=== PATIENT | male | born 1980 | race Caucasian/White ===

== ENCOUNTER 2020-08-17 12:49 | Inpatient (IN) | payer MEDICAID ==
[~2020-08-17] VITALS: Ht 167.6 cm; Wt 97.7 kg
[2020-08-17] MEDS ORDERED: FLUTICASONE PRO16 GM NASAL (13:06)
[2020-08-17] MEDS ORDERED: OMEPRAZOLE40 MG PO (13:07)
[2020-08-17] MEDS ORDERED: ALDACTONE25 MG PO (13:07)
[2020-08-17] MEDS ORDERED: ZYRTEC10 MG PO (13:07)
[2020-08-17] MEDS ORDERED: FIBER-LAX625 MG PO (13:08)
[2020-08-17] MEDS ORDERED: CELEXA40 MG PO (13:08)
[2020-08-17] MEDS ORDERED: DULCOLAX STOOL100 MG PO (13:08)
[2020-08-17 14:06] LABS: BASOPHILS 0.3 % (0-2); CALC OSMOLALITY 275 mosm/kg (275-300); CALCIUM 9.3 mg/dL (8.5-10.1); CARBON DIOXIDE 27.4 mmol/L (21.0-32.0); CHLORIDE - SERUM 99 mmol/L (98-107); CREATININE - SERUM 0.8 mg/dL (0.6-1.3); EOSINOPHILS 0.5 % (0-7); GLUCOSE 104 mg/dL (74-106); HEMATOCRIT 33.2 % (42.0-54.0); HEMOGLOBIN 10.2 g/dL (13.5-17.5); IMMATURE GRANULOCYTES 0.3 % (0-5); LYMPHOCYTE ABS# 1.28 10x3/uL (1.32-3.57); LYMPHOCYTES 12.1 % (15-50); MCH 23.8 pg (26.0-34.0); MCHC 30.7 g/dL (31.0-37.0); MCV 77.4 fL (80.0-100.0); MONOCYTES 12.8 % (2-11); NEUTROPHIL ABS# 7.82 10x3/uL (1.78-5.38); PLATELET COUNT 325 10x3/uL (130-400); POTASSIUM - SERUM 3.6 mmol/L (3.5-5.1); RBC 4.29 10x6/uL (4.20-6.10); SODIUM 139 mmol/L (136-145); UREA NITROGEN 6 mg/dL (7-18); WBC 10.6 10x3/uL (4.8-10.8); eGFR NON AFRICAN AMERICAN > 90 mL/min (90-120)
[2020-08-17 14:12] LABS: ALBUMIN 2.7 g/dL (3.4-5.0); ALKALINE PHOSPHATASE 94 U/L (30-120); ALT (SGPT) 23 U/L (10-68); AMYLASE - SERUM 15 U/L (25-115); BILIRUBIN - TOTAL 0.45 mg/dL (0.2-1.3); LIPASE 63 U/L (73-393); PROTEIN - SERUM 7.9 g/dL (6.4-8.2)
[2020-08-17 15:49] LABS: BILIRUBIN NEGATIVE (NEGATIVE); KETONE NEGATIVE (NEGATIVE); NITRITE NEGATIVE (NEGATIVE); UROBILINOGEN NORMAL mg/dL (< 2)
[2020-08-17 19:19] VITALS: BP 110/62
[2020-08-17 20:30] VITALS: BP 125/72
[2020-08-17 21:30] VITALS: BP 126/76
[2020-08-17 22:11] LABS: APTT 40.8 SECONDS (22.8-39.4); INR 1.37 (0.85-1.17); PROTIME 15.6 SECONDS (11.6-15.0)
[2020-08-17 22:14] LABS: % SATURATION 7 % (15-55); IRON 14 ug/dl (35-150); TOTAL IRON BIND CAPACITY 178 ug/dl (260-445); UNSAT IRON BIND CAPACITY 164 ug/dl (150-375)
[2020-08-17 22:30] VITALS: BP 123/66
[2020-08-17 22:49] LABS: CKMB 2.2 U/L (0.0-3.6); CREATINE KINASE 52 UL (21-232); MAGNESIUM - SERUM 2.3 mg/dL (1.8-2.4); PRO BNP 448 pg/mL (0-125); TROPONIN-I < 0.017 ng/mL (0.000-0.060)
[2020-08-17 22:52] LABS: FERRITIN 1318 ng/mL (3-244)
[2020-08-17 23:20] VITALS: BP 124/65; BMI 32.5
[2020-08-18] VITALS (8 sets, daily range): BP systolic 91–122; BP diastolic 52–85; Ht 167.6 cm; Wt 97.7 kg
--- NOTE | 2020-08-18 00:08 | NUR ---
RECEIVED PT FROM ER, A&O X4. PIV TO LEFT AC, PATENT AND S/L, NO REDNESS OR SWELLING. ROLAND AT BEDSIDE. EDUCATED PT ON CL AND NEEDS, VERBALIZED UNDERSTANDING. BED LOW, CL IN REACH.
--- NOTE | 2020-08-18 02:01 | NUR ---
PT LAYING IN BED, EYES CLOSED AND EVEN RESPIRATIONS. BED LOW, CL IN REACH. WILL CONTINUE TO MONITOR.
--- NOTE | 2020-08-18 03:22 | NUR ---
LOGGING RAFTER LABORER ASSISTED PT WITH HCG BATH, PREP FOR PROCEDURE IN AM. PT TOLERATED WELL. BED LOW, CL IN REACH.
[2020-08-18 07:00] LABS: APTT 40.4 SECONDS (22.8-39.4); INR 1.5 (0.85-1.17); PROTIME 16.8 SECONDS (11.6-15.0)
[2020-08-18 07:05] LABS: BASOPHILS 0.1 % (0-2); EOSINOPHILS 0.3 % (0-7); HEMATOCRIT 29.8 % (42.0-54.0); HEMOGLOBIN 9.2 g/dL (13.5-17.5); IMMATURE GRANULOCYTES 0.4 % (0-5); LYMPHOCYTE ABS# 1.17 10x3/uL (1.32-3.57); LYMPHOCYTES 11.7 % (15-50); MCH 23.5 pg (26.0-34.0); MCHC 30.9 g/dL (31.0-37.0); MCV 76.2 fL (80.0-100.0); MEAN PLATELET VOLUME 9.1 fL (7.4-10.4); MONOCYTES 11.7 % (2-11); NEUTROPHILS 75.8 % (40-80); PLATELET COUNT 331 10x3/uL (130-400); RBC 3.91 10x6/uL (4.20-6.10); RDW 15.8 % (11.5-14.5)
[2020-08-18 07:08] LABS: ALBUMIN 2.5 g/dL (3.4-5.0); ALKALINE PHOSPHATASE 84 U/L (30-120); ALT (SGPT) 20 U/L (10-68); BILIRUBIN - TOTAL 0.42 mg/dL (0.2-1.3); CALC OSMOLALITY 267 mosm/kg (275-300); CALCIUM 8.7 mg/dL (8.5-10.1); CARBON DIOXIDE 24.3 mmol/L (21.0-32.0); CHLORIDE - SERUM 101 mmol/L (98-107); CREATININE - SERUM 0.8 mg/dL (0.6-1.3); GLUCOSE 114 mg/dL (74-106); MAGNESIUM - SERUM 2.1 mg/dL (1.8-2.4); POTASSIUM - SERUM 3.6 mmol/L (3.5-5.1); PROTEIN - SERUM 6.7 g/dL (6.4-8.2); SODIUM 135 mmol/L (136-145); UREA NITROGEN 4 mg/dL (7-18); eGFR NON AFRICAN AMERICAN > 90 mL/min (90-120)
--- NOTE | 2020-08-18 07:16 | NUR ---
IN BED, GUARD AT BEDSIDE. NPO SINCE MIDNIGHT. BED LOW POSITION, CALL LIGHT IN REACH. WILL CONTINUE TO MONITOR.
[2020-08-18 09:22] LABS: NORMAL PLASMA / APTT 35.6 SECONDS (22.8-39.4); NORMAL PLASMA / PROTHROMBIN 13.2 SECONDS (11.6-15.0)
--- NOTE | 2020-08-18 17:01 | NUR ---
IN BED. GUARD AT BEDSIDE. DENIES NEEDS AT THIS TIME. BED LOW POSITION. CALL LIGHT IN REACH. WILL CONTINUE TO MONITOR.
--- NOTE | 2020-08-18 19:30 | NUR ---
RECEIVED BEDSIDE REPORT. PT LAYING IN BED A&O X4. PIV TO LEFT AC PATENT AND S/L, NO REDNESS OR SWELLING, TEGADERM ADHERED TO SKIN, SWAB CAPS IN USE. DRSG TO RIGHT SIDE OF CHEST. PT ABLE TO AMBULATE AD EYAL. TELEMETRY IN PLACE, 88 SR. ROLAND AT BEDSIDE. EDUCATED PT ON CL AND NEEDS, VERBALIZED UNDERSTANDING. BED LOW, CL IN REACH.
--- NOTE | 2020-08-19 03:34 | NUR ---
CHANGED IV TUBING, REPLACED ALL LINES, SWAB CAPS IN USE. BED LOW, CL IN REACH.
[2020-08-19 04:00] VITALS: BP 116/75
[2020-08-19 06:37] LABS: BASOPHILS 0.2 % (0-2); EOSINOPHILS 0.6 % (0-7); HEMATOCRIT 31.6 % (42.0-54.0); HEMOGLOBIN 9.6 g/dL (13.5-17.5); IMMATURE GRANULOCYTES 0.3 % (0-5); LYMPHOCYTE ABS# 1.86 10x3/uL (1.32-3.57); LYMPHOCYTES 15.7 % (15-50); MCH 23.4 pg (26.0-34.0); MCHC 30.4 g/dL (31.0-37.0); MCV 76.9 fL (80.0-100.0); MEAN PLATELET VOLUME 9.2 fL (7.4-10.4); MONOCYTES 15.6 % (2-11); NEUTROPHIL ABS# 8.03 10x3/uL (1.78-5.38); NEUTROPHILS 67.6 % (40-80); PLATELET COUNT 353 10x3/uL (130-400); RBC 4.11 10x6/uL (4.20-6.10); RDW 16.1 % (11.5-14.5); WBC 11.9 10x3/uL (4.8-10.8)
[2020-08-19 06:49] LABS: ALBUMIN 2.5 g/dL (3.4-5.0); ALKALINE PHOSPHATASE 92 U/L (30-120); ALT (SGPT) 24 U/L (10-68); BILIRUBIN - TOTAL 0.36 mg/dL (0.2-1.3); CALC OSMOLALITY 267 mosm/kg (275-300); CALCIUM 8.9 mg/dL (8.5-10.1); CARBON DIOXIDE 26.2 mmol/L (21.0-32.0); CHLORIDE - SERUM 99 mmol/L (98-107); CREATININE - SERUM 0.7 mg/dL (0.6-1.3); GLUCOSE 109 mg/dL (74-106); MAGNESIUM - SERUM 2.1 mg/dL (1.8-2.4); POTASSIUM - SERUM 3.7 mmol/L (3.5-5.1); PROTEIN - SERUM 6.8 g/dL (6.4-8.2); SODIUM 135 mmol/L (136-145); UREA NITROGEN 5 mg/dL (7-18); eGFR NON AFRICAN AMERICAN > 90 mL/min (90-120)
[2020-08-19 06:50] LABS: LDH 1073 U/L (85-227)
[2020-08-19 07:16] LABS: HCG-QUANTITATIVE(TUMOR MARKER) <1 mIU/mL (0-3)
[2020-08-19 09:16] VITALS: BP 107/67
[2020-08-19 10:12] LABS: HEPATITIS C ANTIBODY <0.1 S/CO RAT (0.0-0.9)
[2020-08-19 13:07] VITALS: BP 99/58
[2020-08-19 17:51] VITALS: BP 112/70
[2020-08-19 20:00] VITALS: BP 104/62
[2020-08-20] VITALS: BP 108/70
[2020-08-20 04:00] VITALS: BP 113/66
--- NOTE | 2020-08-20 05:22 | NUR ---
AWAKE MOST OF THE NIGHT WATCHING TV. NO COMPLAINTS OF PAIN OR DISCOMFORT VOICED. CALL LIGHT IN EASY REACH. SAFETY ROUNDS MADE.
[2020-08-20 06:11] LABS: BASOPHILS 0.2 % (0-2); EOSINOPHILS 0.6 % (0-7); HEMATOCRIT 31.5 % (42.0-54.0); HEMOGLOBIN 9.3 g/dL (13.5-17.5); IMMATURE GRANULOCYTES 0.6 % (0-5); LYMPHOCYTE ABS# 1.91 10x3/uL (1.32-3.57); LYMPHOCYTES 15.8 % (15-50); MCH 22.9 pg (26.0-34.0); MCHC 29.5 g/dL (31.0-37.0); MCV 77.6 fL (80.0-100.0); MONOCYTES 13.5 % (2-11); NEUTROPHIL ABS# 8.38 10x3/uL (1.78-5.38); NEUTROPHILS 69.3 % (40-80); PLATELET COUNT 328 10x3/uL (130-400); RBC 4.06 10x6/uL (4.20-6.10); RDW 16.1 % (11.5-14.5); WBC 12.1 10x3/uL (4.8-10.8)
[2020-08-20 06:31] LABS: ALBUMIN 2.3 g/dL (3.4-5.0); ALKALINE PHOSPHATASE 79 U/L (30-120); ALT (SGPT) 21 U/L (10-68); BILIRUBIN - TOTAL 0.35 mg/dL (0.2-1.3); CALC OSMOLALITY 269 mosm/kg (275-300); CALCIUM 8.9 mg/dL (8.5-10.1); CARBON DIOXIDE 26.6 mmol/L (21.0-32.0); CHLORIDE - SERUM 100 mmol/L (98-107); CREATININE - SERUM 0.8 mg/dL (0.6-1.3); GLUCOSE 118 mg/dL (74-106); MAGNESIUM - SERUM 2.1 mg/dL (1.8-2.4); POTASSIUM - SERUM 3.3 mmol/L (3.5-5.1); PROTEIN - SERUM 7.1 g/dL (6.4-8.2); SODIUM 136 mmol/L (136-145); UREA NITROGEN 5 mg/dL (7-18); eGFR NON AFRICAN AMERICAN > 90 mL/min (90-120)
[2020-08-20 07:15] LABS: HCG-QUANTITATIVE(TUMOR MARKER) <1 mIU/mL (0-3)
[2020-08-20 09:11] VITALS: BP 118/74
--- NOTE | 2020-08-20 10:19 | EC ---
PATIENT:JULIANN ANNE DATE OF SERVICE: 08/17/20 SEX: M MEDICAL RECORD: [id number] DATE OF : [birth year] LOCATION:[facility] AGE OF PATIENT: 39 ADMISSION DATE: 08/17/20 REFERRING PHYSICIAN: INTERPRETING PHYSICIAN: CHANCE CARR MD ECHOCARDIOGRAM REPORT ECHO CHARGES 4 ECHO COMPLETE Date: 08/18/20 CLINICAL DIAGNOSIS: DYSPNEA, PERICARDIAL EFFUSION ECHOCARDIOGRAPHIC MEASUREMENTS (adult normal given) AC root (d.<3.7cm) 2.6 cm LV Septum d (<1.2 cm> 0.9 cm Valve Excursion 1.6 cm LV Septum (systole) 1.2 cm Left Atria (s.<4.0cm> 2.8 cm LVPW d(<1.2cm) 1.3 cm RV (d.<2.3cm) 3.3 cm LVPW (sytole) 1.4 cm LV diastole(<5.6CM) 5.0 cm MV E-F(>70mm/sec) cm LV systole 4.1 cm LVOT Diameter 2.1 cm MV exc.(>10mm) 0.8 cm Est.ejection fraction (50-75%) % DOPPLER: LVIT cm/sec A 61 cm/sec E 97 cm/sec LA cm/sec RVSP 19 mmHg LVOT 112 cm/sec AOP1/2T m/s Asc. Ao 126 cm/sec RVOT 115 cm/sec RA cm/sec PA 152 cm/sec AV Gradient Peak 6.3 mmHg AV Mean 4.1 mmHg AV Area 3.0 cm MV Gradient Peak 2.9 mmHg MV Mean 1.4 mmHg MV Area cm COMMENTS: Printing Services Coordinator: Zahida SCHMIDT Lead Data Entry Operator: 3 Dr. Still TAPE# Pericardial Effusion Y DATE OF SERVICE: Adequate 2D, color flow imaging, spectral Doppler, and M-Mode. No LVH. LV internal dimensions are normal. Wall motion normal. EF greater than or equal to 55%. Aortic valve is tricuspid. No evidence of stenosis by Doppler interrogation. Left atrium is normal. Mitral valve shows no prolapse. Trivial MR. Right-sided chambers are grossly normal. Trace TR. Incidental note was made of pericardial effusion, mild to moderate of no hemodynamic significance. ECHOCARDIOGRAM REPORT [id number] JULIANN ANNE TRANSINT:[id number] Voice Confirmation ID: [id number] DOCUMENT ID: [id number] CHANCE CARR MD at 1019 CC: [id number] DICTATION DATE: 08/19/20810 POLITICAL SCIENCE FACULTY MEMBER: 08/19/20 0903 ADM IN [place] [id number] [place] [id number]
[2020-08-20 13:38] VITALS: BP 105/68
[2020-08-20 18:21] VITALS: BP 105/62
[2020-08-20 20:00] VITALS: BP 110/67
[2020-08-21] VITALS: BP 105/63
[2020-08-21 04:00] VITALS: BP 102/70
--- NOTE | 2020-08-21 04:37 | NUR ---
AWAKE MOST OF THIS SHIFT WATCHING TV. ZOFRAN GIVEN X 1 WITH GOOD RESULTS FOR COMPLAINT OF NAUSEA. NO COMPLAINTS OF PAIN VOICED. CALL LIGHT IN EASY REACH. SAFETY ROUNDS MADE.
[2020-08-21 06:59] LABS: ALBUMIN 2.4 g/dL (3.4-5.0); ALKALINE PHOSPHATASE 89 U/L (30-120); BILIRUBIN - TOTAL 0.33 mg/dL (0.2-1.3); CALC OSMOLALITY 263 mosm/kg (275-300); CALCIUM 9.3 mg/dL (8.5-10.1); CARBON DIOXIDE 27.1 mmol/L (21.0-32.0); CHLORIDE - SERUM 98 mmol/L (98-107); CREATININE - SERUM 0.8 mg/dL (0.6-1.3); GLUCOSE 121 mg/dL (74-106); MAGNESIUM - SERUM 2.4 mg/dL (1.8-2.4); PROTEIN - SERUM 7.7 g/dL (6.4-8.2); SODIUM 133 mmol/L (136-145); UREA NITROGEN 5 mg/dL (7-18); eGFR NON AFRICAN AMERICAN > 90 mL/min (90-120)
[2020-08-21 07:00] LABS: ALT (SGPT) 28 U/L (10-68); POTASSIUM - SERUM 4.3 mmol/L (3.5-5.1)
[2020-08-21 07:01] LABS: BASOPHILS 0.2 % (0-2); EOSINOPHILS 1.1 % (0-7); HEMOGLOBIN 9.7 g/dL (13.5-17.5); IMMATURE GRANULOCYTES 0.6 % (0-5); LYMPHOCYTES 13.8 % (15-50); MCH 23.7 pg (26.0-34.0); MCHC 30.3 g/dL (31.0-37.0); MEAN PLATELET VOLUME 9.1 fL (7.4-10.4); MONOCYTES 12.2 % (2-11); NEUTROPHIL ABS# 10.41 10x3/uL (1.78-5.38); NEUTROPHILS 72.1 % (40-80); PLATELET COUNT 344 10x3/uL (130-400); RDW 16.4 % (11.5-14.5); WBC 14.5 10x3/uL (4.8-10.8)
[2020-08-21 07:15] LABS: BETA-2 MICROGLOBULIN 1.5 mg/L (0.6-2.4)
[2020-08-21 08:36] VITALS: BP 106/69
[2020-08-21 12:09] VITALS: BP 109/63
--- NOTE | 2020-08-21 13:22 | NUR ---
Nutrition follow-up: Pt receiving a regular diet; po intake 25-50% of meals Pt has been NPO for several meals due to continued procedures Labs reviewed Wt: 200# Will continue to provide food choices and honor food preferences. Will offer and encourage nutritional supplement RDN follow-up: 08/25/20
--- NOTE | 2020-08-21 14:41 | MORECARE ---
CASE MANAGEMENT DISCHARGE SUMMARY PATIENT: JULIANN ANNE UNIT: [id number] ADM DATE: 08/17/20 AGE: 39 : [birth year] SEX: M ROOM/BED: D.2213 AUTHOR: STEPHANIE MANTILLA PHYSICIAN: REFERRING PHYSICIAN: WHIT ALCANTARA MD DATE OF SERVICE: 08/21/20 Discharge Plan Patient Name: JULIANN ANNE Facility: [facility]:[place] : 1980 Planned Disposition: Court\Law Enforcement Anticipated Discharge Date: Discharge Date: Expected LOS: Initial Reviewer: [email or web address] Initial Review Date: 08/17/2020 Generated: 08/21/20 3:40 pm Comments DCP- Discharge Planning Updated by [email or web address]: Angela Haley on 08/21/20 1:[address] Patient Name: JULIANN ANNE Admission Status: ER Accout number: [id number] Admission Date: 08-17-2020 : 1980 Admission Diagnosis:PNEUMONIA, UNSPECIFIED ORGANISM Attending: WHIT ALCANTARA Current LOS: 4 Anticipated DC Date: Planned Disposition: Court\Law Enforcement Primary Insurance: MEDICAID RESIDENTIAL PENDING Discharge Planning Comments: THIS IS AN [facility] PRISONER GUARDS ARE AT BEDSIDE AND THEY WILL SET UP THE TRANSPORTATION WHEN HE IS READY TO DC BACK TO [facility] CM TO FOLLOW NEEDED Licensed Physical Therapist Assistant: Angela Haley Patient Name: JULIANN ANNE Page [phone] at 1441 All edits/amendments must be made on the electronic document DICTATION DATE: 08/21/20 1441 SLAG DUMPER: ОЛЬГА 08/21/20 1441 RPT#: [id number] DC DATE: STATUS: ADM IN [facility] [address] [place] [address] END OF REPORT
[2020-08-21 17:19] VITALS: BP 96/62
--- NOTE | 2020-08-21 19:10 | NUR ---
REPORT RECEIVED, PT CARE ASSUMED. PT SITTING UP IN BED, AAOX4, WATCHING TV. DENIES ANY NEEDS AT THIS TIME. BED IN LOWEST, SRX2, CALL LIGHT WITHIN REACH. PT SHACKLED TO BED, GUARD AT BEDSIDE. CPOC.
[2020-08-21 20:02] VITALS: BP 122/71
--- NOTE | 2020-08-21 21:30 | NUR ---
PT C/O PAIN AND SWELLING AT IV SITE TO LEFT AC, REDNESS NOTED. PIV REMOVED, TIP INTACT. NEW PIV INITIATED TO RIGHT FOREARM, 22 GAUGE, X1 ATTEMPT, PT TOLERATED WELL, INFUSING NS @ KVO WITHOUT ISSUE.
[2020-08-22 01:01] VITALS: BP 108/67
[2020-08-22 05:55] VITALS: BP 123/63
[2020-08-22 06:15] LABS: BASOPHILS 0.2 % (0-2); EOSINOPHILS 0.9 % (0-7); HEMATOCRIT 31.6 % (42.0-54.0); HEMOGLOBIN 9.5 g/dL (13.5-17.5); IMMATURE GRANULOCYTES 0.6 % (0-5); LYMPHOCYTE ABS# 1.57 10x3/uL (1.32-3.57); LYMPHOCYTES 12.2 % (15-50); MCH 23.4 pg (26.0-34.0); MCHC 30.1 g/dL (31.0-37.0); MCV 77.8 fL (80.0-100.0); MEAN PLATELET VOLUME 8.9 fL (7.4-10.4); MONOCYTES 10.9 % (2-11); NEUTROPHIL ABS# 9.67 10x3/uL (1.78-5.38); NEUTROPHILS 75.2 % (40-80); PLATELET COUNT 350 10x3/uL (130-400); RBC 4.06 10x6/uL (4.20-6.10); RDW 16.5 % (11.5-14.5); WBC 12.9 10x3/uL (4.8-10.8)
[2020-08-22 06:34] LABS: ALBUMIN 2.4 g/dL (3.4-5.0); ALKALINE PHOSPHATASE 93 U/L (30-120); ALT (SGPT) 32 U/L (10-68); BILIRUBIN - TOTAL 0.35 mg/dL (0.2-1.3); CALC OSMOLALITY 269 mosm/kg (275-300); CALCIUM 8.9 mg/dL (8.5-10.1); CARBON DIOXIDE 26.1 mmol/L (21.0-32.0); CHLORIDE - SERUM 99 mmol/L (98-107); CREATININE - SERUM 0.8 mg/dL (0.6-1.3); GLUCOSE 106 mg/dL (74-106); MAGNESIUM - SERUM 2.2 mg/dL (1.8-2.4); POTASSIUM - SERUM 4.4 mmol/L (3.5-5.1); PROTEIN - SERUM 6.7 g/dL (6.4-8.2); SODIUM 136 mmol/L (136-145); UREA NITROGEN 6 mg/dL (7-18); eGFR NON AFRICAN AMERICAN > 90 mL/min (90-120)
--- NOTE | 2020-08-22 07:58 | NUR ---
RESTING IN BED, NO DISTRESS NOTED, GUARD IN ROOM, O2 PER NC, URINAL AT BEDSIDE
[2020-08-22 09:02] VITALS: BP 117/63
[2020-08-22 12:42] VITALS: BP 116/66
[2020-08-22 15:48] VITALS: BP 101/59
[2020-08-22 20:18] VITALS: BP 120/77
--- NOTE | 2020-08-22 23:08 | NUR ---
PATIENT REPORTS SOB WITH COUGHING, SORE THROAT. DENIES PAIN AT THIS TIME. MEDICATED PER SEP. WILL CONTINUE TO MONITOR.
[2020-08-23 00:59] VITALS: BP 106/65
[2020-08-23 05:05] VITALS: BP 134/77
[2020-08-23 06:31] LABS: BASOPHILS 0.2 % (0-2); EOSINOPHILS 0.8 % (0-7); HEMOGLOBIN 9.5 g/dL (13.5-17.5); IMMATURE GRANULOCYTES 0.7 % (0-5); LYMPHOCYTE ABS# 1.59 10x3/uL (1.32-3.57); LYMPHOCYTES 13.2 % (15-50); MCH 23.7 pg (26.0-34.0); MCHC 30.6 g/dL (31.0-37.0); MCV 77.3 fL (80.0-100.0); MEAN PLATELET VOLUME 8.9 fL (7.4-10.4); NEUTROPHIL ABS# 8.81 10x3/uL (1.78-5.38); NEUTROPHILS 73.1 % (40-80); PLATELET COUNT 331 10x3/uL (130-400); RBC 4.01 10x6/uL (4.20-6.10); RDW 16.8 % (11.5-14.5); WBC 12.1 10x3/uL (4.8-10.8)
[2020-08-23 06:38] LABS: INR 1.49 (0.85-1.17); PROTIME 16.7 SECONDS (11.6-15.0)
[2020-08-23 07:02] LABS: ALBUMIN 2.4 g/dL (3.4-5.0); ALKALINE PHOSPHATASE 94 U/L (30-120); ALT (SGPT) 34 U/L (10-68); BILIRUBIN - TOTAL 0.31 mg/dL (0.2-1.3); CALC OSMOLALITY 264 mosm/kg (275-300); CALCIUM 8.9 mg/dL (8.5-10.1); CARBON DIOXIDE 26.9 mmol/L (21.0-32.0); CHLORIDE - SERUM 98 mmol/L (98-107); CREATININE - SERUM 0.6 mg/dL (0.6-1.3); GLUCOSE 110 mg/dL (74-106); MAGNESIUM - SERUM 2.1 mg/dL (1.8-2.4); PROTEIN - SERUM 6.8 g/dL (6.4-8.2); SODIUM 133 mmol/L (136-145); UREA NITROGEN 6 mg/dL (7-18); eGFR NON AFRICAN AMERICAN > 90 mL/min (90-120)
[2020-08-23 08:14] VITALS: BP 129/81
[2020-08-23 12:32] VITALS: BP 104/60
[2020-08-23 17:04] VITALS: BP 101/65
[2020-08-23 20:00] VITALS: BP 114/68
--- NOTE | 2020-08-23 22:56 | NUR ---
PATIENT AWAKE AND ALERT. REPORTS SOB WITH COUGH. TO HAVE PORT PLACED IN THE MORNING. NPO STARTING MIDNIGHT, EDUCATED PATIENT, VERBALIZED UNDERSTANDING. DENIES PAIN AT THIS TIME. WILL CONTINUE TO MONITOR.
[2020-08-24] VITALS (7 sets, daily range): BP systolic 97–126; BP diastolic 57–71
[2020-08-24 08:53] LABS: ALBUMIN 2.4 g/dL (3.4-5.0); ALKALINE PHOSPHATASE 97 U/L (30-120); ALT (SGPT) 26 U/L (10-68); BILIRUBIN - TOTAL 0.43 mg/dL (0.2-1.3); CALCIUM 9.4 mg/dL (8.5-10.1); CARBON DIOXIDE 29.5 mmol/L (21.0-32.0); CHLORIDE - SERUM 98 mmol/L (98-107); GLUCOSE 108 mg/dL (74-106); POTASSIUM - SERUM 4.1 mmol/L (3.5-5.1); PROTEIN - SERUM 7.5 g/dL (6.4-8.2); SODIUM 135 mmol/L (136-145)
[2020-08-24 08:58] LABS: CALC OSMOLALITY 268 mosm/kg (275-300); CREATININE - SERUM 0.8 mg/dL (0.6-1.3); UREA NITROGEN 8 mg/dL (7-18); eGFR NON AFRICAN AMERICAN > 90 mL/min (90-120)
[2020-08-24 09:03] LABS: BASOPHILS 0.2 % (0-2); EOSINOPHILS 0.5 % (0-7); HEMATOCRIT 31.5 % (42.0-54.0); HEMOGLOBIN 9.6 g/dL (13.5-17.5); IMMATURE GRANULOCYTES 0.4 % (0-5); LYMPHOCYTE ABS# 1.48 10x3/uL (1.32-3.57); LYMPHOCYTES 10.9 % (15-50); MCHC 30.5 g/dL (31.0-37.0); MCV 78.8 fL (80.0-100.0); MEAN PLATELET VOLUME 8.8 fL (7.4-10.4); MONOCYTES 11.1 % (2-11); NEUTROPHIL ABS# 10.48 10x3/uL (1.78-5.38); NEUTROPHILS 76.9 % (40-80); PLATELET COUNT 353 10x3/uL (130-400); WBC 13.6 10x3/uL (4.8-10.8)
[2020-08-24 09:28] LABS: INR 1.39 (0.85-1.17); PROTIME 15.8 SECONDS (11.6-15.0)
--- NOTE | 2020-08-24 23:52 | NUR ---
PATIENT AWAKE AND ALERT. NEW PORT IN PLACE TO LEFT CHEST. NO REDNESS, SWELLING OR BLEEDING NOTED. REPORTS CONTINUATION OF COUGH, SOB. WILL CONTINUE TO MONITOR.
[2020-08-25 07:27] LABS: ALBUMIN 2.4 g/dL (3.4-5.0); ALKALINE PHOSPHATASE 97 U/L (30-120); ALT (SGPT) 28 U/L (10-68); BILIRUBIN - TOTAL 0.44 mg/dL (0.2-1.3); CALC OSMOLALITY 261 mosm/kg (275-300); CALCIUM 9.2 mg/dL (8.5-10.1); CARBON DIOXIDE 28.6 mmol/L (21.0-32.0); CHLORIDE - SERUM 96 mmol/L (98-107); CREATININE - SERUM 0.7 mg/dL (0.6-1.3); GLUCOSE 116 mg/dL (74-106); POTASSIUM - SERUM 3.8 mmol/L (3.5-5.1); PROTEIN - SERUM 7.6 g/dL (6.4-8.2); SODIUM 131 mmol/L (136-145); UREA NITROGEN 7 mg/dL (7-18); eGFR NON AFRICAN AMERICAN > 90 mL/min (90-120)
[2020-08-25 07:38] LABS: BASOPHILS 0.2 % (0-2); EOSINOPHILS 0.5 % (0-7); HEMATOCRIT 31.6 % (42.0-54.0); HEMOGLOBIN 9.5 g/dL (13.5-17.5); IMMATURE GRANULOCYTES 0.5 % (0-5); LYMPHOCYTE ABS# 1.76 10x3/uL (1.32-3.57); LYMPHOCYTES 13.3 % (15-50); MCH 23.8 pg (26.0-34.0); MCHC 30.1 g/dL (31.0-37.0); MCV 79.2 fL (80.0-100.0); MEAN PLATELET VOLUME 8.8 fL (7.4-10.4); MONOCYTES 10.3 % (2-11); NEUTROPHIL ABS# 9.99 10x3/uL (1.78-5.38); NEUTROPHILS 75.2 % (40-80); PLATELET COUNT 323 10x3/uL (130-400); RBC 3.99 10x6/uL (4.20-6.10); RDW 17.5 % (11.5-14.5); WBC 13.3 10x3/uL (4.8-10.8)
--- NOTE | 2020-08-25 08:19 | OP ---
PATIENT NAME: JULIANN ANNE MEDICAL RECORD: [id number] :78 LOCATION:D.MS [id number] ADMISSION DATE:08/17/20 SURGEON: FAYE PERDUE MD DATE OF OPERATION: 08/24/2020 PREOPERATIVE DIAGNOSES: 1. Mediastinal mass. 2. Poorly differentiated cancer. 3. Pneumonia. POSTOPERATIVE DIAGNOSES: 1. Mediastinal mass. 2. Poorly differentiated cancer. 3. Pneumonia. PROCEDURE: 1. Left subclavian vein PowerPort placement. 2. Fluoroscopic interpretation. SURGEON: Faye Perdue MD DESCRIPTION OF PROCEDURE: The patient's left chest was prepped and draped in sterile fashion. A needle was used to cannulate the left subclavian vein and the guidewire was advanced with ease. Fluoroscopy was used to note that the wire was in good position in the venous system. A skin incision was made on the left superior lateral chest and a subcutaneous pouch was made over the pectoral fascia. A catheter was tunneled between this pouch and the wire exit site. The port was sutured to the pectoral fascia with interrupted 2-0 Prolenes times 2. The catheter was cut with a beveled tip. The dilator trocar device was placed over the wire and the wire and dilator were removed. The catheter tip was advanced through the trocar and the trocar was then removed. The catheter tip was noted to be resting in good position in the superior vena cava. The port aspirated nonpulsatile dark blood and flushed easily with heparinized saline. The subcutaneous tissues were reapproximated with interrupted 3-0 Vicryl and the skin was closed with running subcutaneous 5-0 Monocryl. We then accessed the port and flushed it with heparinized saline. COMPLICATIONS: None. CONDITION: Stable. ANESTHESIA: General endotracheal. BLOOD LOSS: Minimal. TRANSINT:[id number] Voice Confirmation ID: [id number] DOCUMENT ID: [id number] OPERATIVE REPORT [id number] JULIANN ANNE CHRISTIAN MD at 0819 CC: [id number] DICTATION DATE: 08/24/20 1115 AERIAL PHOTOGRAPHER: 08/24/20 1427 ADM IN [place] [id number] [place] [address]
[2020-08-25 09:01] VITALS: BP 112/72
--- NOTE | 2020-08-25 12:43 | NUR ---
Nutrition follow-up: Pt receiving a regular diet; has been NPO for several meals for port placement and other testing. PO intake 75, 25, 100% of last 3 meals. +BM Labs reviewed Wt: 200# Pt to start chemotherapy soon Will continue to provide food choices with selective menus and honor all food preferences. Recommendations: Daily MVI RDN follow-up: 08/28/20
[2020-08-25 14:28] VITALS: BP 108/68
[2020-08-25 18:33] VITALS: BP 110/62
[2020-08-25 21:18] VITALS: BP 111/68
[2020-08-26 00:51] VITALS: BP 103/57
--- NOTE | 2020-08-26 01:32 | NUR ---
08/25/201944: PT ASSESSED. RESTING IN BED. AAOX4. FOLLOWS COMMANDS X4. PT DENIES SOB. ON 2L NASAL CANNULA. REPORTS MILD ABDOMINAL DISCOMFORT. DENIES NAUSEA. URINAL WITHIN REACH. CALL LIGHT WITHIN REACH. PT VERBALIZES UNDERSTANDING TO CALL FOR ASSISTANCE.
--- NOTE | 2020-08-26 01:37 | NUR ---
08/25/20 2350. PT RESTING COMFORTABLY IN BED. NAD. CALL LIGHT WITHIN REACH.
[2020-08-26 05:00] LABS: BASOPHILS 0.1 % (0-2); EOSINOPHILS 0.2 % (0-7); HEMATOCRIT 31.3 % (42.0-54.0); HEMOGLOBIN 9.4 g/dL (13.5-17.5); IMMATURE GRANULOCYTES 0.6 % (0-5); LYMPHOCYTE ABS# 1.66 10x3/uL (1.32-3.57); LYMPHOCYTES 13.5 % (15-50); MCH 23.7 pg (26.0-34.0); MEAN PLATELET VOLUME 8.9 fL (7.4-10.4); MONOCYTES 12.8 % (2-11); NEUTROPHIL ABS# 8.98 10x3/uL (1.78-5.38); NEUTROPHILS 72.8 % (40-80); PLATELET COUNT 311 10x3/uL (130-400); RBC 3.96 10x6/uL (4.20-6.10); RDW 17.8 % (11.5-14.5); WBC 12.3 10x3/uL (4.8-10.8)
[2020-08-26 05:31] LABS: ALBUMIN 2.3 g/dL (3.4-5.0); ALKALINE PHOSPHATASE 95 U/L (30-120); ALT (SGPT) 26 U/L (10-68); BILIRUBIN - TOTAL 0.46 mg/dL (0.2-1.3); CALC OSMOLALITY 265 mosm/kg (275-300); CARBON DIOXIDE 27.4 mmol/L (21.0-32.0); CHLORIDE - SERUM 97 mmol/L (98-107); CREATININE - SERUM 0.7 mg/dL (0.6-1.3); GLUCOSE 107 mg/dL (74-106); POTASSIUM - SERUM 3.8 mmol/L (3.5-5.1); PROTEIN - SERUM 7.4 g/dL (6.4-8.2); SODIUM 134 mmol/L (136-145); UREA NITROGEN 7 mg/dL (7-18); eGFR NON AFRICAN AMERICAN > 90 mL/min (90-120)
[2020-08-26 05:48] VITALS: BP 108/69
[2020-08-26 07:56] VITALS: BP 110/71
[2020-08-26 12:23] VITALS: BP 116/63
[2020-08-26 17:15] VITALS: BP 115/67
--- NOTE | 2020-08-26 19:00 | NUR ---
RPOERT FROM KEMAL ALEX
--- NOTE | 2020-08-26 19:30 | NUR ---
ASSESSMENT COMPLETED. PT IS SITTING UP IN BED AND STATES HE HAS SOME BACK PAIN. HE ASKED FOR MEDS WHEN I BROUGHT HIS NIGHT MEDS. HE IS ON 3L O2 VIA NC. PT IS STILL DYSPNIC WITH THE O2. HE HAS A SALINE LOCK IN THE RIGHT FOREARM. HE ALSO HAS A PORT A CATH ON THE LEFT SIDE OF HIS CHEST. HE DID NOT COUGH ANY WHEN I WAS IN THE ROOM. HE HAS SOME STOMACH PAIN AND IS NOT EATING MUCH. PER PT REQUEST HE HAD A FRESH GLASS OF ICE WATER AND JESSICA SPRITE. CONSENTS ARE SIGNED FOR REPEAT BIOPSY OF HIS LUNG THAT WILL BE DONE TOMORROW. PT HAS A GUARD IN HIS ROOM.
[2020-08-26 20:45] VITALS: BP 123/74
--- NOTE | 2020-08-26 21:15 | NUR ---
PT HAS TAKEN HIS MEDICATIONS. HE HAS NO C/O EXCEPT BACK PAIN THAT HE RATES A 6. HE WAS GIVEN TYLENOL FOR PAIN PER ORDER.
--- NOTE | 2020-08-26 23:24 | NUR ---
RESTING QUIETLY WITHOUT C/O.
[2020-08-27] VITALS (18 sets, daily range): BP systolic 96–137; BP diastolic 67–90
--- NOTE | 2020-08-27 01:27 | NUR ---
PT SIGNED CONSENTS FOR HIS PROCEDURE, FOR ANESTHESIA AND BLOOD CONSENT. LATEX QUESTIONS ASKED TO PT AND ALL ARE ON THE CHART. PT DID NOT HAVE ANY QUESTIONS.
--- NOTE | 2020-08-27 02:07 | NUR ---
PT C/O NAUSEA. ZOFRAN GIVEN IV.
--- NOTE | 2020-08-27 02:10 | NUR ---
PT HAD C/O BACK PAIN EARLIER. I ASKED HIM IF HE'D LIKE MORE TYLENOL IT HAS BEEN MORE THAT 4 HOURS. HE SAID NOT NOW. HE WAS TOLD HE COULD HAVE IT ANYTIME AND TO JUST PUT ON HIS CALL LIGHT IF HE CHANGED HIS MIND.
--- NOTE | 2020-08-27 05:00 | NUR ---
BLOOD DRAWN FROM PT PORT. THIS WAS FLUSHED WELL AFTER AND AN ORANGE CAP PLACE OVER THE PORT. PT CALLED ME IN INITIALLY B/C HE STATES HE IS REALLY GETTING SHORT OF BREATH AT GREG TIMES. HE STATES HE HAS TO SIT UP MORE WHEN THIS HAPPENS. PT USUALLY IS OVER ON HIS LEFT SIDE SITTING UP SLEEPING WHEN I GO IN THE ROOM. NO NEW C/O AT THIS TIME AND NO NEEDS
--- NOTE | 2020-08-27 06:00 | NUR ---
HIBICLENS BATH GIVEN. NEW GOWN IN PLACE. PT WANTED TO TAKE A SHOWER BUT HER WAS TOO SOB.
[2020-08-27 06:03] LABS: ALBUMIN 2.4 g/dL (3.4-5.0); ALKALINE PHOSPHATASE 96 U/L (30-120); ALT (SGPT) 25 U/L (10-68); BILIRUBIN - TOTAL 0.41 mg/dL (0.2-1.3); CALC OSMOLALITY 268 mosm/kg (275-300); CALCIUM 9.2 mg/dL (8.5-10.1); CARBON DIOXIDE 29.1 mmol/L (21.0-32.0); CHLORIDE - SERUM 97 mmol/L (98-107); CREATININE - SERUM 0.7 mg/dL (0.6-1.3); GLUCOSE 108 mg/dL (74-106); POTASSIUM - SERUM 4.1 mmol/L (3.5-5.1); PROTEIN - SERUM 7.7 g/dL (6.4-8.2); SODIUM 135 mmol/L (136-145); UREA NITROGEN 7 mg/dL (7-18); eGFR NON AFRICAN AMERICAN > 90 mL/min (90-120)
[2020-08-27 06:13] LABS: BASOPHILS 0.1 % (0-2); EOSINOPHILS 0.2 % (0-7); HEMATOCRIT 30.8 % (42.0-54.0); HEMOGLOBIN 9.4 g/dL (13.5-17.5); IMMATURE GRANULOCYTES 0.6 % (0-5); LYMPHOCYTE ABS# 1.53 10x3/uL (1.32-3.57); LYMPHOCYTES 12.2 % (15-50); MCH 24.2 pg (26.0-34.0); MCHC 30.5 g/dL (31.0-37.0); MCV 79.2 fL (80.0-100.0); MONOCYTES 11.5 % (2-11); NEUTROPHIL ABS# 9.47 10x3/uL (1.78-5.38); NEUTROPHILS 75.4 % (40-80); PLATELET COUNT 330 10x3/uL (130-400); RBC 3.89 10x6/uL (4.20-6.10); RDW 18.4 % (11.5-14.5); WBC 12.6 10x3/uL (4.8-10.8)
[2020-08-27 06:16] LABS: APTT 43.6 SECONDS (22.8-39.4); INR 1.46 (0.85-1.17); PROTIME 16.4 SECONDS (11.6-15.0)
--- NOTE | 2020-08-27 12:08 | NUR ---
RECEIVED FROM IR TO [facility] APPROX. 1115. IR RN STAYED WITH PT WHILE ROOM WAS STAT CLEANED. PT TO ROOM AT 1145. WAS ON 15L NRB AND IS SET UP ON BIPAP PER RT. GUARD AT BEDSIDE. NOTED HE HAD TO SIT DIRECTLY UP STRAIGHT OR FELT LIKE HE COULD NOT BREATH. MORE RELAXED AFTER BIPAP. PLACED.
--- NOTE | 2020-08-27 15:41 | NUR ---
UPON ARRIVAL TO ICU, WAS PLACED ON 100% BIPAP, AND HAS SINCE TITRATED TO 5L HFNC. O2 SATS REMAIN WELL. IS LESS TACHYPNEIC, AND REPORTS IMPROVED COMFORT.
[2020-08-28] VITALS (20 sets, daily range): BP systolic 107–148; BP diastolic 65–97
[2020-08-28 04:52] LABS: BASOPHILS 0 % (0-2); EOSINOPHILS 0 % (0-7); HEMATOCRIT 31.9 % (42.0-54.0); HEMOGLOBIN 9.7 g/dL (13.5-17.5); IMMATURE GRANULOCYTES 0.5 % (0-5); LYMPHOCYTE ABS# 0.99 10x3/uL (1.32-3.57); LYMPHOCYTES 8.8 % (15-50); MCH 24.1 pg (26.0-34.0); MCHC 30.4 g/dL (31.0-37.0); MCV 79.4 fL (80.0-100.0); MEAN PLATELET VOLUME 8.7 fL (7.4-10.4); MONOCYTES 8.6 % (2-11); NEUTROPHIL ABS# 9.26 10x3/uL (1.78-5.38); NEUTROPHILS 82.1 % (40-80); PLATELET COUNT 281 10x3/uL (130-400); RBC 4.02 10x6/uL (4.20-6.10); RDW 18.5 % (11.5-14.5); WBC 11.3 10x3/uL (4.8-10.8)
[2020-08-28 05:19] LABS: ALBUMIN 2.5 g/dL (3.4-5.0); ALKALINE PHOSPHATASE 96 U/L (30-120); ALT (SGPT) 25 U/L (10-68); BILIRUBIN - TOTAL 0.42 mg/dL (0.2-1.3); CALC OSMOLALITY 262 mosm/kg (275-300); CALCIUM 9.6 mg/dL (8.5-10.1); CARBON DIOXIDE 28.4 mmol/L (21.0-32.0); CHLORIDE - SERUM 95 mmol/L (98-107); CREATININE - SERUM 0.8 mg/dL (0.6-1.3); GLUCOSE 149 mg/dL (74-106); MAGNESIUM - SERUM 2.3 mg/dL (1.8-2.4); PHOSPHOROUS 4.2 mg/dL (2.5-4.9); POTASSIUM - SERUM 4.2 mmol/L (3.5-5.1); PROTEIN - SERUM 8.1 g/dL (6.4-8.2); SODIUM 130 mmol/L (136-145); eGFR NON AFRICAN AMERICAN > 90 mL/min (90-120)
[2020-08-28 05:23] LABS: UREA NITROGEN 11 mg/dL (7-18)
--- NOTE | 2020-08-28 08:43 | NUR ---
Nutrition reassessment/follow-up: Pt now in ICU due to breating issues; on BIPAP Diet: Regular PO intake has been < 50% average over the course of this admission; pt reported on admit ~10# wt loss. 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 RDN will order Boost with meals; if po intake remains poor, pt would benefit from short-term ProcalAmine PPN @ 125 ml/hr if pt can tolerated increased fluid volume. RDN follow-up: 08/31/20
[2020-08-28 09:11] LABS: ACR - BINDING 0.06 nmol/L (0.00-0.24); ACR - BLOCKING 8 % (0-25); ACR - MODULATING <12 % (0-20)
--- NOTE | 2020-08-28 22:50 | NUR ---
ASSISTED PT TO BSC, GUARD AT BEDSIDE. PT PROVIDED OWN GLORIA CARE, BACK TO BED WITHOUT INCIDENT.
[2020-08-29 03:00] VITALS: BP 124/98
[2020-08-29 04:25] LABS: BASOPHILS 0.1 % (0-2); EOSINOPHILS 0 % (0-7); HEMATOCRIT 32.9 % (42.0-54.0); IMMATURE GRANULOCYTES 0.7 % (0-5); LYMPHOCYTE ABS# 1.22 10x3/uL (1.32-3.57); LYMPHOCYTES 6.1 % (15-50); MCH 24.3 pg (26.0-34.0); MCHC 30.4 g/dL (31.0-37.0); MCV 79.9 fL (80.0-100.0); MEAN PLATELET VOLUME 8.7 fL (7.4-10.4); MONOCYTES 11.9 % (2-11); NEUTROPHIL ABS# 16.19 10x3/uL (1.78-5.38); NEUTROPHILS 81.2 % (40-80); PLATELET COUNT 326 10x3/uL (130-400); RBC 4.12 10x6/uL (4.20-6.10); RDW 18.3 % (11.5-14.5)
[2020-08-29 04:28] LABS: WBC 19.9 10x3/uL (4.8-10.8)
[2020-08-29 04:47] LABS: ALBUMIN 2.5 g/dL (3.4-5.0); ALKALINE PHOSPHATASE 99 U/L (30-120); ALT (SGPT) 26 U/L (10-68); BILIRUBIN - TOTAL 0.41 mg/dL (0.2-1.3); CALC OSMOLALITY 255 mosm/kg (275-300); CALCIUM 9.1 mg/dL (8.5-10.1); CARBON DIOXIDE 29.6 mmol/L (21.0-32.0); CHLORIDE - SERUM 92 mmol/L (98-107); CREATININE - SERUM 0.6 mg/dL (0.6-1.3); GLUCOSE 133 mg/dL (74-106); POTASSIUM - SERUM 4.6 mmol/L (3.5-5.1); PROTEIN - SERUM 8.1 g/dL (6.4-8.2); SODIUM 126 mmol/L (136-145); eGFR NON AFRICAN AMERICAN > 90 mL/min (90-120)
[2020-08-29 04:49] LABS: UREA NITROGEN 15 mg/dL (7-18)
[2020-08-29 07:00] VITALS: BP 103/74
[2020-08-29 11:00] VITALS: BP 131/99
[2020-08-29 15:00] VITALS: BP 111/75
--- NOTE | 2020-08-29 15:10 | NUR ---
0700 REPORT RECIEVED AND CARE ASSUMED OF PATIENT.. SEE FLOW SHEET FOR SHIFT ASSESMENT FINDINGS..GAURD AT BEDSIDE.. LEFT INFUSAPORT IV 0800 BREAKFAST IS SERVED AND PATIENT IS FEEDING SELF.. 1030 C/O PAIN DR ENRIQUE IN UNIT MAKING ROUNDS... UPDATE IS GIVEN AND ORDER RECIEVED.. 1100 TULENOL PO FOR PAIN 1215 LUNCH TRAY IS SERVED 1330 PT HAS NOT EATEN LUNCH.. HE IS DOZING AT THIS TIME 1500 CONTINUES TO SLEEP
[2020-08-29 19:00] VITALS: BP 134/96
--- NOTE | 2020-08-29 19:06 | NUR ---
1730 ASSISTED OOB TO THE BSC... LINEN CHANGE IS DONE AT THIS TIME.. DRESSING ON POSTERIOR CHEST REMOVED AND AREA IS CDI WITHOUT FREDNESS OR SWELLING.. 1800 WIHTOUT RESULTS IN BSC. PARTIAL BATH GIVEN .. ASSISTED TO BED.. DRESSING CHANGE TO PICC LINE DONE AT THIS TIME..
[2020-08-29 23:00] VITALS: BP 131/107
[2020-08-30] VITALS (10 sets, daily range): BP systolic 106–149; BP diastolic 82–112
--- NOTE | 2020-08-30 01:05 | NUR ---
PT C/O UPPER ABD/CHEST DISCOMFORT, PRN NORCO 5 ADMINISTERED PER PT REQUEST/MD ORDER.
[2020-08-30 05:47] LABS: BASOPHILS 0.1 % (0-2); EOSINOPHILS 0 % (0-7); HEMATOCRIT 33.2 % (42.0-54.0); HEMOGLOBIN 10.2 g/dL (13.5-17.5); IMMATURE GRANULOCYTES 1.2 % (0-5); LYMPHOCYTES 6.3 % (15-50); MCH 24.1 pg (26.0-34.0); MCHC 30.7 g/dL (31.0-37.0); MCV 78.5 fL (80.0-100.0); MEAN PLATELET VOLUME 9.1 fL (7.4-10.4); MONOCYTES 12.9 % (2-11); NEUTROPHIL ABS# 11.41 10x3/uL (1.78-5.38); NEUTROPHILS 79.5 % (40-80); PLATELET COUNT 314 10x3/uL (130-400); RBC 4.23 10x6/uL (4.20-6.10); RDW 18.5 % (11.5-14.5); WBC 14.3 10x3/uL (4.8-10.8)
[2020-08-30 05:58] LABS: CALC OSMOLALITY 250 mosm/kg (275-300); CALCIUM 8.9 mg/dL (8.5-10.1); CARBON DIOXIDE 27.2 mmol/L (21.0-32.0); CHLORIDE - SERUM 88 mmol/L (98-107); CREATININE - SERUM 0.6 mg/dL (0.6-1.3); GLUCOSE 132 mg/dL (74-106); POTASSIUM - SERUM 4.8 mmol/L (3.5-5.1); SODIUM 123 mmol/L (136-145); UREA NITROGEN 16 mg/dL (7-18); eGFR NON AFRICAN AMERICAN > 90 mL/min (90-120)
--- NOTE | 2020-08-30 13:17 | NUR ---
DR DOMINGO NOTIFIED OF CONSULT.
--- NOTE | 2020-08-30 14:05 | NUR ---
Nutrition follow-up: Pt receiving a regular diet with po intake ~50% of meals Labs reviewed Wt: 204# +BM Will continue to provide food choices and honor food preferences. Will offer nutritiobnal supplements. RDN follow-up: 09/02/20
--- NOTE | 2020-08-30 14:20 | NUR ---
PT C/O FEELING LIKE HE WAS HAVING A HARD TIME CATCHING HIS BREATH, AND STATES HE FEELS TO OUT OF BREATH TO TALK OR DRINK MUCH WATER. PTS RR 28 OXYGEN SATURATION 97% ON 3LNC. WHEN AUSCULTATED LUNG SOUNDS NOTED SOME INSPIRATORY WHEEZING TO LOWER LOBES. RT ON UNIT, NOTIFIED THEM OF THIS, THEY ADMIN SCHEDULED UPDRAFT. DR ENRIQUE UPDATED OF THIS AND STATED TO PLACE PT ON BIPAP. BIPAP PLACED TO PT, 75% FIO2. WILL CONTINUE TO OBSERVE.
--- NOTE | 2020-08-30 16:06 | NUR ---
PT SITTING UP ON SIDE OF BED RESTING OVER BEDSIDE TABLE WITH EYES CLOSED. RESPIRATIONS STEADY AND UNLABORED. NO ACUTE DISTRESS NOTED. BIPAP IN PLACE. WILL CONTINUE TO CLOSELY OBSERVE.
[2020-08-31] VITALS (15 sets, daily range): BP systolic 118–151; BP diastolic 84–120
[2020-08-31 04:47] LABS: CALC OSMOLALITY 247 mosm/kg (275-300); CALCIUM 9.2 mg/dL (8.5-10.1); CARBON DIOXIDE 28.3 mmol/L (21.0-32.0); CHLORIDE - SERUM 86 mmol/L (98-107); CREATININE - SERUM 0.6 mg/dL (0.6-1.3); GLUCOSE 134 mg/dL (74-106); POTASSIUM - SERUM 5.2 mmol/L (3.5-5.1); SODIUM 121 mmol/L (136-145); UREA NITROGEN 17 mg/dL (7-18); eGFR NON AFRICAN AMERICAN > 90 mL/min (90-120)
[2020-08-31 04:49] LABS: BASOPHILS 0.1 % (0-2); EOSINOPHILS 0 % (0-7); HEMATOCRIT 34.9 % (42.0-54.0); HEMOGLOBIN 10.8 g/dL (13.5-17.5); IMMATURE GRANULOCYTES 1.8 % (0-5); LYMPHOCYTE ABS# 1.24 10x3/uL (1.32-3.57); LYMPHOCYTES 8.4 % (15-50); MCH 24.4 pg (26.0-34.0); MCHC 30.9 g/dL (31.0-37.0); MCV 78.8 fL (80.0-100.0); MEAN PLATELET VOLUME 9.2 fL (7.4-10.4); MONOCYTES 11.5 % (2-11); NEUTROPHIL ABS# 11.47 10x3/uL (1.78-5.38); NEUTROPHILS 78.2 % (40-80); PLATELET COUNT 317 10x3/uL (130-400); RBC 4.43 10x6/uL (4.20-6.10); RDW 18.6 % (11.5-14.5); WBC 14.7 10x3/uL (4.8-10.8)
--- NOTE | 2020-08-31 06:48 | NUR ---
Patient maintained tripod positioning due to dyspnea on 4L HFNC . Pain controlled with prn [place].
--- NOTE | 2020-08-31 07:36 | NUR ---
PT SITTING UP ON SIDE OF BED, STATES HE IS SOB IF HE LAYS BACK, NO NEEDS VOICED AT THIS TIME, WILL MONITOR
--- NOTE | 2020-08-31 09:25 | NUR ---
DR VINCENT HERE SEEING PATIENT
--- NOTE | 2020-08-31 12:00 | NUR ---
lunch tray served, pt sitting up on the side of the bed
--- NOTE | 2020-08-31 13:20 | NUR ---
DR HUSSEIN HERE SEEING PATIENT
--- NOTE | 2020-08-31 15:40 | NUR ---
pt continues sitting on the side of the bed, bipap in place, will monitor
[2020-09-01] VITALS (61 sets, daily range): BP systolic 90–172; BP diastolic 32–126
--- NOTE | 2020-09-01 01:55 | NUR ---
PATIENT WITH DYSPNEA, INCREASED WORK OF BREATHING, TRIPOD POSITIONING AT SIDE OF BED WHEN ON 4L HFNC. PLACED ON BIPAP AND RT NOTIFIED FOR ABG, CURRENTLY AT BEDSIDE TO COLLECT SPECIMEN. INTERVENTION EXPLAINED TO PATIENT, VERBALIZED UNDERSTANDING, FOLLOWS COMMANDS APPROPRIATELY.
--- NOTE | 2020-09-01 02:25 | NUR ---
CALLED DR. VINCENT. NOTIFIED REGARDING PATIENT STATUS AND ABG/LYTES RESULTS. NO ORDERS RECEIVED. WILL CONTINUE TO MONITOR.
--- NOTE | 2020-09-01 04:20 | NUR ---
FOLLOW-UP CALL TO DR. VINCENT REGARDING K 5.8. ORDER RECEIVED.
--- NOTE | 2020-09-01 06:35 | NUR ---
PATIENT ABLE TO TOLERATE BIPAP INTERMITTENTLY FOR 1-2HRS AT A TIME. ENCOURAGED TO UTILIZE BIPAP MUCH POSSIBLE. DENIES ANY PAIN. PLAN OF CARE CONTINUES.
--- NOTE | 2020-09-01 07:20 | NUR ---
16 slovak jurado catheter inserted with ease, yellow urine return noted, pt tolerated well, will monitor
--- NOTE | 2020-09-01 08:15 | NUR ---
pt refuses breakfast at this time, sitting up on the side of the bed with 5LNC in place, will monitor
--- NOTE | 2020-09-01 09:20 | NUR ---
DR VINCENT HERE SEEING PATIENT
--- NOTE | 2020-09-01 09:37 | NUR ---
BP 150/126, PT STARTED ON CARDENE DRIP AT 5MG/HR, CLONIDINE PATCH DC'D, WILL MONITOR
[2020-09-01 09:57] LABS: CALC OSMOLALITY 245 mosm/kg (275-300); CALCIUM 9.1 mg/dL (8.5-10.1); CHLORIDE - SERUM 86 mmol/L (98-107); CREATININE - SERUM 0.5 mg/dL (0.6-1.3); GLUCOSE 133 mg/dL (74-106); POTASSIUM - SERUM 5.6 mmol/L (3.5-5.1); UREA NITROGEN 19 mg/dL (7-18); eGFR NON AFRICAN AMERICAN > 90 mL/min (90-120)
[2020-09-01 10:06] LABS: SODIUM 120 mmol/L (136-145)
--- NOTE | 2020-09-01 11:59 | NUR ---
pt laying in bed with bipap in place, will monitor
--- NOTE | 2020-09-01 12:15 | NUR ---
o2 sat 65%, FIO2 increased to 55% on bipap per RT, will monitor
--- NOTE | 2020-09-01 15:00 | NUR ---
resting with eyes closed, bipap in place fio2 at 60%, will montior
[2020-09-02] VITALS (24 sets, daily range): BP systolic 88–163; BP diastolic 28–122
--- NOTE | 2020-09-02 07:45 | NUR ---
SITTING UP ON THE SIDE OF THE BED WITH BIPAP IN PLACE, REFUSES BREAKFAST, WILL MONITOR
--- NOTE | 2020-09-02 09:30 | NUR ---
DR. VINCENT HERE SEEING PATIENT
--- NOTE | 2020-09-02 09:40 | NUR ---
DR HUA HERE SEEING PATIENT
[2020-09-02 10:16] LABS: BASOPHILS 0.1 % (0-2); EOSINOPHILS 0.1 % (0-7); HEMATOCRIT 34.8 % (42.0-54.0); IMMATURE GRANULOCYTES 1.5 % (0-5); LYMPHOCYTE ABS# 2.53 10x3/uL (1.32-3.57); LYMPHOCYTES 13.8 % (15-50); MCH 24.8 pg (26.0-34.0); MCHC 31.6 g/dL (31.0-37.0); MCV 78.4 fL (80.0-100.0); MEAN PLATELET VOLUME 8.9 fL (7.4-10.4); MONOCYTES 3.8 % (2-11); NEUTROPHIL ABS# 14.75 10x3/uL (1.78-5.38); NEUTROPHILS 80.7 % (40-80); RBC 4.44 10x6/uL (4.20-6.10); RDW 20.3 % (11.5-14.5); WBC 18.3 10x3/uL (4.8-10.8)
--- NOTE | 2020-09-02 10:20 | NUR ---
Nutrition follow-up: Pt discussed during IDT team rounds Pt sitting on side of bed with SOB Diet order: regular as tolerated; pt continues with poor po intake Chemotherapy to begin today for tumor; pt not a surgical candidate Wt: 219# Will continue to provide food choices and honor food preferences. Recommendations: Appetite stimulant if medically feasible Consider PEG tube placement for nutrition support. RDN will follow-up: 09/04/20
[2020-09-02 10:22] LABS: PLATELET COUNT 230 10x3/uL (130-400)
[2020-09-02 10:40] LABS: ALBUMIN 2.9 g/dL (3.4-5.0); ALKALINE PHOSPHATASE 107 U/L (30-120); ALT (SGPT) 64 U/L (10-68); BILIRUBIN - TOTAL 1.05 mg/dL (0.2-1.3); CALCIUM 9.6 mg/dL (8.5-10.1); CARBON DIOXIDE 27.7 mmol/L (21.0-32.0); CREATININE - SERUM 0.8 mg/dL (0.6-1.3); GLUCOSE 140 mg/dL (74-106); POTASSIUM - SERUM 5.5 mmol/L (3.5-5.1); PROTEIN - SERUM 7.2 g/dL (6.4-8.2); eGFR NON AFRICAN AMERICAN > 90 mL/min (90-120)
[2020-09-02 11:00] LABS: CALC OSMOLALITY 245 mosm/kg (275-300); UREA NITROGEN 30 mg/dL (7-18)
[2020-09-02 11:01] LABS: SODIUM 118 mmol/L (136-145)
[2020-09-02 11:02] LABS: CHLORIDE - SERUM 84 mmol/L (98-107)
[2020-09-02 11:29] LABS: PHOSPHOROUS 3.6 mg/dL (2.5-4.9); URIC ACID 4.2 mg/dL (2.6-7.2)
--- NOTE | 2020-09-02 14:30 | NUR ---
SITTING UP ON THE SIDE OF THE BED NO NEEDS VOICED, WILL MONITOR
--- NOTE | 2020-09-02 16:33 | NUR ---
sitting up on the side of the bed, no needs voice, will monitor
--- NOTE | 2020-09-02 19:31 | NUR ---
RECEIVED BEDSIDE REPORT. PATIENT IS ALERT AND ORIENTED, RESTING WITH HEAD DOWN ON BEDSIDE TABLE. PATIENT ON BIPAP. NO S/S OF DISTRESS. NO C/O PAIN. NEEDS MET. CALL LIGHT WITHIN REACH. WILL CPOC.
[2020-09-03] VITALS (24 sets, daily range): BP systolic 74–151; BP diastolic 53–155
--- NOTE | 2020-09-03 04:00 | NUR ---
UNABLE TO DRAW BLOOD FROM PATIENT PORT. CALLED LAB SPOKE WITH YUNG. SHE WILL LET KEITH KNOW TO COM AND DRAW LABS,
[2020-09-03 07:06] LABS: CREATININE - SERUM 0.8 mg/dL (0.6-1.3); PHOSPHOROUS 3.9 mg/dL (2.5-4.9); URIC ACID 3.7 mg/dL (2.6-7.2)
[2020-09-03 10:31] LABS: CALC OSMOLALITY 253 mosm/kg (275-300); CALCIUM 9.2 mg/dL (8.5-10.1); CHLORIDE - SERUM 87 mmol/L (98-107); CREATININE - SERUM 0.8 mg/dL (0.6-1.3); GLUCOSE 128 mg/dL (74-106); POTASSIUM - SERUM 5.1 mmol/L (3.5-5.1); SODIUM 122 mmol/L (136-145); UREA NITROGEN 28 mg/dL (7-18); eGFR NON AFRICAN AMERICAN > 90 mL/min (90-120)
[2020-09-03 10:46] LABS: ALBUMIN 2.8 g/dL (3.4-5.0); ALKALINE PHOSPHATASE 109 U/L (30-120); ALT (SGPT) 75 U/L (10-68); BILIRUBIN - TOTAL 1.03 mg/dL (0.2-1.3); PROTEIN - SERUM 7.4 g/dL (6.4-8.2)
[2020-09-03 11:48] LABS: HEMATOCRIT 35.8 % (42.0-54.0); HEMOGLOBIN 11.2 g/dL (13.5-17.5); MCH 25.3 pg (26.0-34.0); MCHC 31.3 g/dL (31.0-37.0); MEAN PLATELET VOLUME 9.1 fL (7.4-10.4); PLATELET COUNT 247 10x3/uL (130-400); RBC 4.42 10x6/uL (4.20-6.10); RDW 21.6 % (11.5-14.5); WBC 17.4 10x3/uL (4.8-10.8)
[2020-09-03 14:35] LABS: ANISOCYTOSIS OCC; LYMPHOCYTES 9 % (15-50); MONOCYTES 18 % (2-11); NEUTROPHILS 72 % (40-80); PLATELET ESTIMATE NORMAL; ROULEAUX OCC
--- NOTE | 2020-09-03 15:14 | NUR ---
PORT REACCESSED @1400, BLOOD RETURN NOTED, FLUSHES W/O DIFFICULTY. 1440 - PREMED STARTED.
--- NOTE | 2020-09-03 16:12 | NUR ---
PRE MEDICATION DRIP COMPLETE. IV PUSH FAMOTIDINE AND DIPHENHDRYAMINE ADMIN @1615. BLOOD RETURN NOTED TO LEFT CHEST PORT.
--- NOTE | 2020-09-03 16:37 | NUR ---
1630- INFUSA-PORT PATENT, BLOOD RETURN NOTED. PT REPORTS NO PAIN AT THIS TIME. PT VITALS: TEMP 94.3 AUXILLARY HR 105 BP 106/88 O2 98- BI-PAP 50% CHEMO- CARBO STARTED 1645- VITALS TEMP-94.3 AUXILLARY HR-100 BP-148/88 O2-98 1700- VITALS- TEMP-95.0 AUXILLARY HR-99 BP-151/96 O2-99 END OF CARBO. TOTAL OF 250ML INFUSED. INFUSA-PORT FLUSHED WITH 20ML NS. 1715- VITALS- TEMP-95.0 HR-99 BP-149/88 02-99 1730- INFUSA-PORT PATENT WITH BLOOD RETURN. START TAXO TEMP-94.9 HR-98 BP-151/96 O2-98 745 TEMP-95.1 HR-98 BP-137/93 O2-97 1800- TEMP-95.0 AUXILLARY HR-98 BP-138/88- RIGHT LEG O2-99 1815-TAXO COMPLETE. BLOOD RETURN NOTED TO INFUSA-PORT. INFUSA-PORT FLUSHED WITH 20ML NS AND NS @ 50ML/HR STARTED PER ORDER. PT VSS. NO S/S OF TRANSFUSION REACTION AT THIS TIME. WILL CONTINUE TO MONITOR. TEMP-95.0 AUXILLARY HR-99 BP-134/86 O2-99
--- NOTE | 2020-09-03 19:50 | NUR ---
VANCOMYCIN ADMIN AND DOSAGE CLARIFIED WITH PHARMACIST. OK TO ADMIN PER PHARMACIST.
--- NOTE | 2020-09-03 20:15 | NUR ---
ALIREZA AREVALO APPLIED TO PT
[2020-09-04] VITALS (23 sets, daily range): BP systolic 103–165; BP diastolic 84–130
--- NOTE | 2020-09-04 03:45 | NUR ---
PT SITTING ON SIDE OF BED. ON 5LNC. O2 SATS 93-98%. PT TOLERATED WELL. COMPLETE LINEN CHANGE DONE. PT REFUSED CHG BATH. MCCONNELL CARE COMPLETED.
[2020-09-04 04:24] LABS: BASOPHILS 0 % (0-2); EOSINOPHILS 0 % (0-7); HEMATOCRIT 34.7 % (42.0-54.0); HEMOGLOBIN 10.9 g/dL (13.5-17.5); IMMATURE GRANULOCYTES 1.7 % (0-5); LYMPHOCYTE ABS# 0.43 10x3/uL (1.32-3.57); LYMPHOCYTES 3.6 % (15-50); MCHC 31.4 g/dL (31.0-37.0); MCV 79.6 fL (80.0-100.0); MEAN PLATELET VOLUME 9.1 fL (7.4-10.4); MONOCYTES 9.2 % (2-11); NEUTROPHIL ABS# 10.15 10x3/uL (1.78-5.38); NEUTROPHILS 85.5 % (40-80); PLATELET COUNT 218 10x3/uL (130-400); RBC 4.36 10x6/uL (4.20-6.10); RDW 20.9 % (11.5-14.5)
[2020-09-04 04:29] LABS: WBC 11.9 10x3/uL (4.8-10.8)
[2020-09-04 04:46] LABS: ALBUMIN 2.5 g/dL (3.4-5.0); ALKALINE PHOSPHATASE 105 U/L (30-120); BILIRUBIN - TOTAL 1.53 mg/dL (0.2-1.3); CALC OSMOLALITY 252 mosm/kg (275-300); CALCIUM 8.5 mg/dL (8.5-10.1); CARBON DIOXIDE 29.5 mmol/L (21.0-32.0); CHLORIDE - SERUM 89 mmol/L (98-107); CREATININE - SERUM 0.9 mg/dL (0.6-1.3); GLUCOSE 130 mg/dL (74-106); PHOSPHOROUS 3.1 mg/dL (2.5-4.9); POTASSIUM - SERUM 4.9 mmol/L (3.5-5.1); PROTEIN - SERUM 6.8 g/dL (6.4-8.2); SODIUM 123 mmol/L (136-145); UREA NITROGEN 21 mg/dL (7-18); URIC ACID 3.1 mg/dL (2.6-7.2); eGFR NON AFRICAN AMERICAN > 90 mL/min (90-120)
[2020-09-04 05:04] LABS: ALT (SGPT) 135 U/L (10-68)
--- NOTE | 2020-09-04 12:36 | NUR ---
Nutrition follow-up: Pt discussed during IDT team rounds Pt sitting on side of bed, SOB Diet order: Regular PO intake continues to be poor; however, pt is feeling better since chemotherapy started BIPAP as needed Wt: 214# Will continue to provide food choices and honor food preferences. RDN will order Magic cup with meals Follow-up: 09/07/20
--- NOTE | 2020-09-04 21:10 | NUR ---
1914: PT ASSISTED BY 2 RNS TO BEDSIDE COMMODE. PT ON 5LNC, O2 SATS >92%. PT CLEANED AND MCCONNELL CARE PROVIDED. CHG BATH GIVEN AND COMPLETE LINEN CHANGE DONE. PT PLACED BACK IN BED. PT LAYED FLAT TO BE PULLED UP IN BED. HEART DROPPED FROM 90s TO 50s. PT SAT BACK UP IN BED. NEUROLOGICALLY INTACT. ASYMPTOMATIC. BP STABLE. HEART RATE IMPROVED WITH REPOSITIONING. 2109: PT AWAKE FOR FORMATION FRACTURING OPERATOR. ON 5LNC. TOOK MEDICATION WITHOUT DIFFICULTY. HEART RATE NOTED TO DROP TO 50s-60s BPM. PT ASYMPTOMATIC. BP STABLE. PT PLACED ON BIPAP. HEART RATE IMPROVEMENT NOTED AFTER PLACEMENT OF BIPAP. 2119: PT RESTING COMFORTABLY ON BIPAP. NO ACUTE DISTRESS NOTED.
[2020-09-05] VITALS (23 sets, daily range): BP systolic 109–149; BP diastolic 71–107
[2020-09-05 04:10] LABS: BASOPHILS 0.1 % (0-2); EOSINOPHILS 0 % (0-7); HEMATOCRIT 36.6 % (42.0-54.0); HEMOGLOBIN 11.2 g/dL (13.5-17.5); IMMATURE GRANULOCYTES 0.9 % (0-5); LYMPHOCYTE ABS# 0.71 10x3/uL (1.32-3.57); LYMPHOCYTES 4.6 % (15-50); MCH 24.7 pg (26.0-34.0); MCHC 30.6 g/dL (31.0-37.0); MCV 80.8 fL (80.0-100.0); MEAN PLATELET VOLUME 9.8 fL (7.4-10.4); NEUTROPHIL ABS# 13.66 10x3/uL (1.78-5.38); NEUTROPHILS 88.4 % (40-80); RBC 4.53 10x6/uL (4.20-6.10); RDW 21.4 % (11.5-14.5)
[2020-09-05 04:16] LABS: PLATELET COUNT 166 10x3/uL (130-400); WBC 15.4 10x3/uL (4.8-10.8)
[2020-09-05 05:06] LABS: ALBUMIN 2.6 g/dL (3.4-5.0); ALKALINE PHOSPHATASE 108 U/L (30-120); ALT (SGPT) 118 U/L (10-68); BILIRUBIN - TOTAL 1.14 mg/dL (0.2-1.3); CALC OSMOLALITY 259 mosm/kg (275-300); CALCIUM 8.3 mg/dL (8.5-10.1); CARBON DIOXIDE 30.7 mmol/L (21.0-32.0); CHLORIDE - SERUM 93 mmol/L (98-107); CREATININE - SERUM 0.8 mg/dL (0.6-1.3); GLUCOSE 125 mg/dL (74-106); PHOSPHOROUS 2.7 mg/dL (2.5-4.9); POTASSIUM - SERUM 4.6 mmol/L (3.5-5.1); PROTEIN - SERUM 6.6 g/dL (6.4-8.2); SODIUM 127 mmol/L (136-145); UREA NITROGEN 24 mg/dL (7-18); URIC ACID 2.8 mg/dL (2.6-7.2); eGFR NON AFRICAN AMERICAN > 90 mL/min (90-120)
--- NOTE | 2020-09-05 05:30 | NUR ---
PT HR JUMPED TO 150s-160s. BP STABLE. PT TAKEN OFF BIPAP AND PLACED ON 5LNC. PT ASKED TO COUGH. HR IMPROVEMENT NOTED IN 80s-90s. PT REQUESTS TO BE PLACED BACK ON BIPAP. BIPAP PLACED. PT CONTINUES TO REST COMFORTABLY. CALL LIGHT WITHIN REACH.
--- NOTE | 2020-09-05 06:36 | NUR ---
DR. VINCENT AT BEDSIDE. UPDATED MD ON PT STATUS. NOTIFIED OF PT HR ELEUTERIO IN 50s EARLIER IN NIGHT. MD ALSO UPDATED ON PT'S HEART JUMPING 150s-160s AT TIMES, PT BROKE ON HIS OWN. MD VERBALIZED ACKNOWLEDGEMENT. NO NEW ORDERS RECEIVED AT THIS TIME.
--- NOTE | 2020-09-05 06:39 | NUR ---
PT RESTING COMFORTABLY ON BIPAP, 60% FIO2. O2 SAT 100%.
--- NOTE | 2020-09-05 09:43 | NUR ---
SPOKE TO THE TRAFFIC SIGNAL SUPERVISOR MAINTENANCE AT [facility] DIRECTED BY DR VINCENT. REPORTED PTS CONDITION AND ASKED TO HAVE FAMILY BE AWARE OF CRITICAL CONDITION. DIRECTED BY DR VINCENT. CHAPLAIN [place].
--- NOTE | 2020-09-05 17:25 | NUR ---
HR 152 TO 175. AFIB. CALLED AND REPORTED TO DR VINCENT. REC'D ORDERS TO START AMIODARONE GTT.
--- NOTE | 2020-09-05 18:24 | NUR ---
HR 96.
--- NOTE | 2020-09-05 23:05 | NUR ---
emerson hugger and warm blankets applied to pt
[2020-09-06] VITALS (24 sets, daily range): BP systolic 114–140; BP diastolic 69–114
[2020-09-06 04:28] LABS: BASOPHILS 0.1 % (0-2); EOSINOPHILS 0.1 % (0-7); HEMATOCRIT 38.1 % (42.0-54.0); HEMOGLOBIN 11.6 g/dL (13.5-17.5); IMMATURE GRANULOCYTES 0.7 % (0-5); LYMPHOCYTE ABS# 0.67 10x3/uL (1.32-3.57); LYMPHOCYTES 4.3 % (15-50); MCH 24.7 pg (26.0-34.0); MCHC 30.4 g/dL (31.0-37.0); MCV 81.2 fL (80.0-100.0); MEAN PLATELET VOLUME 10.7 fL (7.4-10.4); MONOCYTES 1.8 % (2-11); NEUTROPHIL ABS# 14.55 10x3/uL (1.78-5.38); RBC 4.69 10x6/uL (4.20-6.10); RDW 21.8 % (11.5-14.5); WBC 15.6 10x3/uL (4.8-10.8)
[2020-09-06 04:36] LABS: PLATELET COUNT 131 10x3/uL (130-400)
[2020-09-06 04:53] LABS: ALBUMIN 2.5 g/dL (3.4-5.0); ALKALINE PHOSPHATASE 108 U/L (30-120); ALT (SGPT) 115 U/L (10-68); BILIRUBIN - TOTAL 1.32 mg/dL (0.2-1.3); CALC OSMOLALITY 258 mosm/kg (275-300); CALCIUM 8.2 mg/dL (8.5-10.1); CARBON DIOXIDE 26.5 mmol/L (21.0-32.0); CHLORIDE - SERUM 94 mmol/L (98-107); CREATININE - SERUM 0.7 mg/dL (0.6-1.3); GLUCOSE 136 mg/dL (74-106); PHOSPHOROUS 2.8 mg/dL (2.5-4.9); POTASSIUM - SERUM 5.1 mmol/L (3.5-5.1); PROTEIN - SERUM 6.5 g/dL (6.4-8.2); SODIUM 127 mmol/L (136-145); UREA NITROGEN 19 mg/dL (7-18); URIC ACID 2.6 mg/dL (2.6-7.2); eGFR NON AFRICAN AMERICAN > 90 mL/min (90-120)
--- NOTE | 2020-09-06 05:18 | NUR ---
Pt's heart rate noted to be 130s-150s afib. Dr. Elen adkins. awaiting call back.
--- NOTE | 2020-09-06 05:45 | NUR ---
Dr. Elen adkins
--- NOTE | 2020-09-06 06:01 | NUR ---
DR. MORENO PAGED FOR THE 3RD TIME. AWAITING CALL BACK.
--- NOTE | 2020-09-06 15:06 | NUR ---
PATIENT STAYED OF BIPAP TILL AROUND 1PM AND WAS GETTING TIRED. HAS ATE FAIRLY WELL TODAY AND HAVE ENCOURAGED TO EAT.
[2020-09-07] VITALS (25 sets, daily range): BP systolic 98–137; BP diastolic 58–104
[2020-09-07 05:45] LABS: BASOPHILS 0.1 % (0-2); EOSINOPHILS 0 % (0-7); IMMATURE GRANULOCYTES 0.3 % (0-5); LYMPHOCYTES 3.4 % (15-50); MCH 25.1 pg (26.0-34.0); MCHC 30.8 g/dL (31.0-37.0); MCV 81.4 fL (80.0-100.0); MEAN PLATELET VOLUME 10.3 fL (7.4-10.4); MONOCYTES 0.9 % (2-11); NEUTROPHIL ABS# 14.12 10x3/uL (1.78-5.38); NEUTROPHILS 95.3 % (40-80); PLATELET COUNT 127 10x3/uL (130-400); RBC 4.79 10x6/uL (4.20-6.10); RDW 21.9 % (11.5-14.5); WBC 14.8 10x3/uL (4.8-10.8)
[2020-09-07 05:47] LABS: ALBUMIN 2.6 g/dL (3.4-5.0); ALKALINE PHOSPHATASE 108 U/L (30-120); ALT (SGPT) 132 U/L (10-68); BILIRUBIN - TOTAL 1.36 mg/dL (0.2-1.3); CALC OSMOLALITY 263 mosm/kg (275-300); CALCIUM 8.1 mg/dL (8.5-10.1); CARBON DIOXIDE 27.9 mmol/L (21.0-32.0); CHLORIDE - SERUM 96 mmol/L (98-107); CREATININE - SERUM 0.8 mg/dL (0.6-1.3); GLUCOSE 160 mg/dL (74-106); PHOSPHOROUS 2.7 mg/dL (2.5-4.9); POTASSIUM - SERUM 5.4 mmol/L (3.5-5.1); PROTEIN - SERUM 6.4 g/dL (6.4-8.2); SODIUM 128 mmol/L (136-145); UREA NITROGEN 23 mg/dL (7-18); URIC ACID 2.4 mg/dL (2.6-7.2); eGFR NON AFRICAN AMERICAN > 90 mL/min (90-120)
--- NOTE | 2020-09-07 10:12 | NUR ---
SPOKE WITH LEO IN IR. SHE IS AWARE OF CONSULT FOR THORACENTISIS TOMORROW.
--- NOTE | 2020-09-07 12:19 | NUR ---
Nutrition follow-up: Pt currently on BIPAP. Nurse reports pt ate good at breakfast; pt ate good yesterday also Diet: Regular PO intake ~50-75% of meals Labs reviewed started chemotherapy Wt: 229# RDN follow-up: 09/09/20
--- NOTE | 2020-09-07 23:44 | NUR ---
Pt resting in bed and states that he is going to try and get some sleep. The Pt has been off the BiPap for about an hour and a half. The Pt is now back on the BiPap and resting comfortably.
[2020-09-08] VITALS (22 sets, daily range): BP systolic 105–150; BP diastolic 75–96
[2020-09-08 04:25] LABS: BASOPHILS 0 % (0-2); EOSINOPHILS 0.1 % (0-7); HEMOGLOBIN 11.5 g/dL (13.5-17.5); IMMATURE GRANULOCYTES 0.3 % (0-5); LYMPHOCYTE ABS# 0.57 10x3/uL (1.32-3.57); LYMPHOCYTES 4.5 % (15-50); MCH 24.7 pg (26.0-34.0); MCHC 30.3 g/dL (31.0-37.0); MCV 81.5 fL (80.0-100.0); MEAN PLATELET VOLUME 10.7 fL (7.4-10.4); MONOCYTES 0.4 % (2-11); NEUTROPHILS 94.7 % (40-80); PLATELET COUNT 102 10x3/uL (130-400); RBC 4.66 10x6/uL (4.20-6.10); RDW 21.9 % (11.5-14.5); WBC 12.7 10x3/uL (4.8-10.8)
[2020-09-08 04:34] LABS: APTT 34.7 SECONDS (22.8-39.4); INR 1.7 (0.85-1.17); PROTIME 18.5 SECONDS (11.6-15.0)
[2020-09-08 04:41] LABS: ALBUMIN 2.4 g/dL (3.4-5.0); ALKALINE PHOSPHATASE 97 U/L (30-120); ALT (SGPT) 121 U/L (10-68); BILIRUBIN - TOTAL 1.28 mg/dL (0.2-1.3); CALC OSMOLALITY 271 mosm/kg (275-300); CALCIUM 7.7 mg/dL (8.5-10.1); CHLORIDE - SERUM 95 mmol/L (98-107); CREATININE - SERUM 0.7 mg/dL (0.6-1.3); GLUCOSE 151 mg/dL (74-106); POTASSIUM - SERUM 5.6 mmol/L (3.5-5.1); SODIUM 132 mmol/L (136-145); UREA NITROGEN 24 mg/dL (7-18); URIC ACID 1.8 mg/dL (2.6-7.2); eGFR NON AFRICAN AMERICAN > 90 mL/min (90-120)
[2020-09-08 04:48] LABS: PHOSPHOROUS 1.9 mg/dL (2.5-4.9)
[2020-09-09] VITALS (22 sets, daily range): BP systolic 97–142; BP diastolic 43–112
[2020-09-09 04:52] LABS: BASOPHILS 0.1 % (0-2); EOSINOPHILS 0 % (0-7); HEMATOCRIT 38.6 % (42.0-54.0); HEMOGLOBIN 11.8 g/dL (13.5-17.5); IMMATURE GRANULOCYTES 0.4 % (0-5); LYMPHOCYTE ABS# 0.51 10x3/uL (1.32-3.57); MCH 25.1 pg (26.0-34.0); MCHC 30.6 g/dL (31.0-37.0); MCV 82.1 fL (80.0-100.0); MONOCYTES 0.6 % (2-11); NEUTROPHIL ABS# 7.91 10x3/uL (1.78-5.38); NEUTROPHILS 92.9 % (40-80); RDW 21.5 % (11.5-14.5)
[2020-09-09 04:53] LABS: PLATELET COUNT 61 10x3/uL (130-400); PLATELET ESTIMATE DECREASED; WBC 8.5 10x3/uL (4.8-10.8)
[2020-09-09 05:18] LABS: ALBUMIN 2.4 g/dL (3.4-5.0); ALKALINE PHOSPHATASE 114 U/L (30-120); ALT (SGPT) 126 U/L (10-68); CALC OSMOLALITY 258 mosm/kg (275-300); CALCIUM 8.1 mg/dL (8.5-10.1); CARBON DIOXIDE 29.2 mmol/L (21.0-32.0); CHLORIDE - SERUM 94 mmol/L (98-107); CREATININE - SERUM 0.6 mg/dL (0.6-1.3); GLUCOSE 157 mg/dL (74-106); PHOSPHOROUS 2.1 mg/dL (2.5-4.9); SODIUM 126 mmol/L (136-145); UREA NITROGEN 20 mg/dL (7-18); URIC ACID 1.5 mg/dL (2.6-7.2); eGFR NON AFRICAN AMERICAN > 90 mL/min (90-120)
[2020-09-09 05:32] LABS: POTASSIUM - SERUM 6.1 mmol/L (3.5-5.1)
--- NOTE | 2020-09-09 08:50 | NUR ---
DR. HUA IN UNIT. NEPROLOGY CONSULTED. DR. HUA SPOKE WITH DR. JAFFE.
--- NOTE | 2020-09-09 10:13 | NUR ---
Nutrition reassessment: Pt continues with inadequate oral intake R/T breathing issues AEB po intake < 50% average at meals. Estimated nutritional needs: 0219-3128 kcal (25-30 kcal/kg AdjBW of 75.3 kg) 75-90 gm protein (1.0-1.2 gm/kg AdjBW) 2852-3698 ml fluid - or per MD Labs reviewed; K: 6.1, Na: 126, Cl: 94, BUN: 20, Cr: WNL Procalamine PPN was infusing @ 75 ml/hr; requested physician to discontinue; ordered. Diet order: Regular soft with Ensure TID PO intake continues to be < 50% average at meals Recommendations: PEG tube placement and TF started if po intake continues to be poor and physician agrees. RDN follow-up: 09/11/20
--- NOTE | 2020-09-09 12:00 | NUR ---
MEAL TRAY DELIVERED TO ROOM. PT REFUSED TO EAT AT THIS TIME.
[2020-09-09 12:20] LABS: CALC OSMOLALITY 261 mosm/kg (275-300); CALCIUM 8.3 mg/dL (8.5-10.1); CARBON DIOXIDE 28.7 mmol/L (21.0-32.0); CHLORIDE - SERUM 94 mmol/L (98-107); CREATININE - SERUM 0.6 mg/dL (0.6-1.3); GLUCOSE 183 mg/dL (74-106); POTASSIUM - SERUM 5.5 mmol/L (3.5-5.1); SODIUM 126 mmol/L (136-145); UREA NITROGEN 25 mg/dL (7-18); eGFR NON AFRICAN AMERICAN > 90 mL/min (90-120)
--- NOTE | 2020-09-09 14:30 | NUR ---
20G PIV INSERTED TO RIGHT AC X 1 ATTEMPT.
--- NOTE | 2020-09-09 15:02 | NUR ---
PUPILS UNEVEN AT THIS TIME. DR. IRWIN CALLED. NO ANSWER. MESSAGE LEFT FOR CALL BACK.
--- NOTE | 2020-09-09 15:11 | NUR ---
CALL BACK RECEIVED FROM GRADY RO RESOURCE DEVELOPMENT MANAGER WITH DR. IRWIN. INFORMED OF PUPIL DIFFERENCE. WANTS PT TO GO TO CT WHEN ABLE TO TOLERATE. ICU NURSE OR RESPIRATORY TO GO WITH PATIENT.
--- NOTE | 2020-09-09 17:00 | NUR ---
PORT DRESSING CHANGED PER PROTOCOL. NO SIGN OF INFECTION NOTED AT SITE. PT TOLERATED WELL.
--- NOTE | 2020-09-09 17:45 | NUR ---
PT TRANSFERRED CT ON 15L HIGH FLOW. PT DID NOT TOLERATE BEING ON HIS BACK FOR VERY LONG. DESATED INTO MID 80S. CURRENTLY BACK IN ROOM ON BIPAP 100% FIO2. SAT 92% AT THIS TIME. DR. JAFFE IN UNIT. NO FURTHER NEEDS AT THIS TIME. WILL CONTINUE TO MONITOR.
--- NOTE | 2020-09-09 18:11 | NUR ---
D5NS HAS BEEN DC'D PER ORDER.
[2020-09-10] VITALS (25 sets, daily range): BP systolic 96–128; BP diastolic 59–97
[2020-09-10 05:04] LABS: APTT 40.9 SECONDS (22.8-39.4); INR 1.72 (0.85-1.17); PROTIME 18.7 SECONDS (11.6-15.0)
[2020-09-10 05:10] LABS: HEMATOCRIT 32.9 % (42.0-54.0); HEMOGLOBIN 10.2 g/dL (13.5-17.5); LYMPHOCYTE ABS# 0.53 10x3/uL (1.32-3.57); MCH 25.2 pg (26.0-34.0); MCV 81.4 fL (80.0-100.0); NEUTROPHIL ABS# 1.61 10x3/uL (1.78-5.38); PLATELET COUNT 58 10x3/uL (130-400); RBC 4.04 10x6/uL (4.20-6.10); RDW 21.5 % (11.5-14.5); WBC 2.3 10x3/uL (4.8-10.8)
[2020-09-10 05:16] LABS: ALKALINE PHOSPHATASE 91 U/L (30-120); ALT (SGPT) 95 U/L (10-68); BILIRUBIN - TOTAL 1.56 mg/dL (0.2-1.3); CALC OSMOLALITY 264 mosm/kg (275-300); CALCIUM 8.4 mg/dL (8.5-10.1); CHLORIDE - SERUM 95 mmol/L (98-107); CREATININE - SERUM 0.5 mg/dL (0.6-1.3); GLUCOSE 159 mg/dL (74-106); MAGNESIUM - SERUM 2.2 mg/dL (1.8-2.4); PHOSPHOROUS 1.9 mg/dL (2.5-4.9); POTASSIUM - SERUM 5.4 mmol/L (3.5-5.1); PROTEIN - SERUM 6.1 g/dL (6.4-8.2); SODIUM 129 mmol/L (136-145); UREA NITROGEN 21 mg/dL (7-18); URIC ACID 1.7 mg/dL (2.6-7.2); eGFR NON AFRICAN AMERICAN > 90 mL/min (90-120)
[2020-09-10 05:21] LABS: ALBUMIN 3.1 g/dL (3.4-5.0)
--- NOTE | 2020-09-10 10:51 | NUR ---
SPOKE WITH DR. ENRIQUE REGARDING AMIODARONE. OKAY TO WEAN IT OFF IF PT HAS NOT BEEN TACHYCARDIC.
[2020-09-10 11:19] LABS: LYMPHOCYTES 31 % (15-50); MONOCYTES 9 % (2-11); NEUTROPHILS 60 % (40-80); PLATELET ESTIMATE DECREASED
[2020-09-10 11:20] LABS: ANISOCYTOSIS OCC; CRENATED CELLS OCC; HYPOCHROMASIA OCC; ROULEAUX OCC
--- NOTE | 2020-09-10 11:43 | NUR ---
HR 117 SINUS TACH. PLACED BACK ON BIPAP AT THIS TIME. WILL CONTINUE TO MONITOR.
--- NOTE | 2020-09-10 12:15 | NUR ---
Nutrition reassessement: Discussed during IDT team rounds. Pt with very poor po intake due to breathing issues. ProcalAmine PPN stopped due to elevated K. Labs reviewed Wt: 226# Received order to start TPN per Dr. Fung due to inability to meet estimated nutritional needs orally at this time. Diet order: Regular soft PO intake very poor at this time. Ht: 5'6" Wt: 226# IBW: 142# +/-10% BMI: 36.5 Estimated nutritional needs: 3586-3915 kcal (25-30 kcal/kg AdjBW of 80 kg 80-104 g protein (1.0-1.3 gm/kg AdjBW 9374-0824 ml or per MD order Severe malnutrition of chronic illness R/T lung cancer AEB the following criteria: - > 5% weight loss in less than 6 months (pt with 10# weight loss over the last 2 months WELCOME DESK AGENT) - < 50% intake of estimated energy needs for > 2 weeks - Fluid retention with 3+ pitting edema to all extremeties TPN starting @ 40 ml/hr with 20% 250 ml intralipids every other day This will provide: 988 kcal (42-50% estimated kcal needs) 48 gm protein (46-60% estimated protein needs) RDN will manage TPN and advance to goal rate of 85 ml/hr within 48-72 hours. Follow-up: 09/11/20
--- NOTE | 2020-09-10 12:33 | NUR ---
PT HR 125. APPEARS TO BE GOING IN AND OUT OF A-FIB. DR. ENRIQUE NOTIFIED. WILL LEAVE AMIODARONE AT 0.5MG/MIN AT THIS TIME. CAN INCREASE TO 1MG/MIN IF HR DOES NOT COME DOWN PER DR. ENRIQUE'S ORDER.
--- NOTE | 2020-09-10 13:29 | NUR ---
CALL PLACED TO BEBETO LOPEZ PT'S MOTHER. THIS CALL WAS ARRANGED BY CASE MANAGEMENT. PT WAS TAKEN OFF BIPAP FOR ABOUT 15MINUTES. BIPAP PLACED BACK ONCE CALL WAS COMPLETED.
--- NOTE | 2020-09-10 14:45 | NUR ---
MEPILEX LITE DRESSING APPLIED TO LEFT ELBOW.
--- NOTE | 2020-09-10 16:00 | NUR ---
OFF BIPAP AT THIS TIME PER PT REQUEST. ON 15L O2 VIA HFNC.
--- NOTE | 2020-09-10 18:00 | NUR ---
PLACED BACK ON BIPAP AT 100% FIO2.
[2020-09-11] VITALS (24 sets, daily range): BP systolic 115–139; BP diastolic 72–92
[2020-09-11 04:19] LABS: BASOPHILS 0 % (0-2); EOSINOPHILS 0.7 % (0-7); HEMATOCRIT 33.1 % (42.0-54.0); HEMOGLOBIN 10.2 g/dL (13.5-17.5); IMMATURE GRANULOCYTES 8.4 % (0-5); LYMPHOCYTE ABS# 0.51 10x3/uL (1.32-3.57); LYMPHOCYTES 35.7 % (15-50); MCH 25.1 pg (26.0-34.0); MCHC 30.8 g/dL (31.0-37.0); MCV 81.5 fL (80.0-100.0); MEAN PLATELET VOLUME 11.1 fL (7.4-10.4); MONOCYTES 21.7 % (2-11); NEUTROPHIL ABS# 0.48 10x3/uL (1.78-5.38); NEUTROPHILS 33.5 % (40-80); PLATELET COUNT 58 10x3/uL (130-400); RBC 4.06 10x6/uL (4.20-6.10); RDW 21.7 % (11.5-14.5)
[2020-09-11 04:29] LABS: WBC 1.4 10x3/uL (4.8-10.8)
[2020-09-11 04:36] LABS: ALBUMIN 2.8 g/dL (3.4-5.0); ALKALINE PHOSPHATASE 95 U/L (30-120); ALT (SGPT) 78 U/L (10-68); BILIRUBIN - TOTAL 1.68 mg/dL (0.2-1.3); CALC OSMOLALITY 260 mosm/kg (275-300); CALCIUM 8.2 mg/dL (8.5-10.1); CHLORIDE - SERUM 91 mmol/L (98-107); CREATININE - SERUM 0.5 mg/dL (0.6-1.3); GLUCOSE 143 mg/dL (74-106); MAGNESIUM - SERUM 2.1 mg/dL (1.8-2.4); PHOSPHOROUS 2.2 mg/dL (2.5-4.9); PROTEIN - SERUM 5.9 g/dL (6.4-8.2); SODIUM 128 mmol/L (136-145); UREA NITROGEN 18 mg/dL (7-18); URIC ACID 1.8 mg/dL (2.6-7.2); eGFR NON AFRICAN AMERICAN > 90 mL/min (90-120)
--- NOTE | 2020-09-11 04:44 | NUR ---
ONCOLOGY PAGED AT 0440 IN REGARDS TO CRITICAL WBC OF 1.4, AWAITING RETURN PHONE CALL
[2020-09-11 04:47] LABS: POTASSIUM - SERUM 4.4 mmol/L (3.5-5.1)
--- NOTE | 2020-09-11 08:20 | NUR ---
Nutrition follow-up: Chart and labs reviewed Pt on BIPAP; PO intake remains poor Will continue current TPN @ 40 ml/hr Follow-up: 09/12/20
[2020-09-12] VITALS (24 sets, daily range): BP systolic 94–139; BP diastolic 59–87
[2020-09-12 05:58] LABS: ALBUMIN 2.6 g/dL (3.4-5.0); ALKALINE PHOSPHATASE 104 U/L (30-120); ALT (SGPT) 61 U/L (10-68); BILIRUBIN - TOTAL 1.68 mg/dL (0.2-1.3); CALC OSMOLALITY 263 mosm/kg (275-300); CALCIUM 8.3 mg/dL (8.5-10.1); CARBON DIOXIDE 36.5 mmol/L (21.0-32.0); CHLORIDE - SERUM 93 mmol/L (98-107); CREATININE - SERUM 0.6 mg/dL (0.6-1.3); GLUCOSE 125 mg/dL (74-106); PHOSPHOROUS 2.8 mg/dL (2.5-4.9); PROTEIN - SERUM 5.9 g/dL (6.4-8.2); SODIUM 130 mmol/L (136-145); UREA NITROGEN 17 mg/dL (7-18); URIC ACID 2.4 mg/dL (2.6-7.2); eGFR NON AFRICAN AMERICAN > 90 mL/min (90-120)
[2020-09-12 06:43] LABS: HEMATOCRIT 33.3 % (42.0-54.0); LYMPHOCYTE ABS# 0.26 10x3/uL (1.32-3.57); MCH 24.6 pg (26.0-34.0); MCV 81.8 fL (80.0-100.0); NEUTROPHIL ABS# 0.07 10x3/uL (1.78-5.38); PLATELET COUNT 54 10x3/uL (130-400); RBC 4.07 10x6/uL (4.20-6.10); RDW 21.6 % (11.5-14.5)
[2020-09-12 06:51] LABS: WBC 0.8 10x3/uL (4.8-10.8)
[2020-09-12 07:43] LABS: LYMPHOCYTES 58 % (15-50); MONOCYTES 14 % (2-11); NEUTROPHILS 26 % (40-80); PLATELET ESTIMATE DECREASED
--- NOTE | 2020-09-12 08:17 | NUR ---
Nutrition follow-up: Chart and labs reviewed Pt still with breathing issues Na, K, Cl low TPN infusing @ 40; 20% 250 ml intralipids Q 48 hours TPN formula adjusted Rate will stay @ 40 ml/hr RDN follow-up: 09/13/20
[2020-09-12 11:39] LABS: % SATURATION 6 % (15-55); IRON 10 ug/dl (35-150); TOTAL IRON BIND CAPACITY 164 ug/dl (260-445); UNSAT IRON BIND CAPACITY 154 ug/dl (150-375)
[2020-09-13] VITALS (22 sets, daily range): BP systolic 82–113; BP diastolic 58–91
[2020-09-13 04:24] LABS: BASOPHILS 0 % (0-2); EOSINOPHILS 0 % (0-7); HEMATOCRIT 30.4 % (42.0-54.0); IMMATURE GRANULOCYTES 0.5 % (0-5); LYMPHOCYTE ABS# 0.39 10x3/uL (1.32-3.57); LYMPHOCYTES 18.8 % (15-50); MCH 24.5 pg (26.0-34.0); MCHC 29.6 g/dL (31.0-37.0); MCV 82.8 fL (80.0-100.0); MONOCYTES 51.4 % (2-11); NEUTROPHIL ABS# 0.61 10x3/uL (1.78-5.38); NEUTROPHILS 29.3 % (40-80); PLATELET COUNT 55 10x3/uL (130-400); RBC 3.67 10x6/uL (4.20-6.10); RDW 22.1 % (11.5-14.5)
[2020-09-13 04:26] LABS: WBC 2.1 10x3/uL (4.8-10.8)
[2020-09-13 04:38] LABS: ALBUMIN 2.2 g/dL (3.4-5.0); ALKALINE PHOSPHATASE 104 U/L (30-120); ALT (SGPT) 46 U/L (10-68); BILIRUBIN - TOTAL 1.36 mg/dL (0.2-1.3); CARBON DIOXIDE 35.9 mmol/L (21.0-32.0); CHLORIDE - SERUM 94 mmol/L (98-107); CREATININE - SERUM 0.5 mg/dL (0.6-1.3); MAGNESIUM - SERUM 2.1 mg/dL (1.8-2.4); PHOSPHOROUS 2.5 mg/dL (2.5-4.9); PROTEIN - SERUM 5.3 g/dL (6.4-8.2); SODIUM 131 mmol/L (136-145); UREA NITROGEN 19 mg/dL (7-18); eGFR NON AFRICAN AMERICAN > 90 mL/min (90-120)
[2020-09-13 05:00] LABS: CALC OSMOLALITY 275 mosm/kg (275-300); GLUCOSE 288 mg/dL (74-106)
[2020-09-13 05:01] LABS: POTASSIUM - SERUM 2.8 mmol/L (3.5-5.1)
--- NOTE | 2020-09-13 08:18 | NUR ---
Nutrition follow-up: Chart and labs reviewed K, Na, Cl continue to be low TPN adjusted; will remains at 40 ml/hr Intralipids 20% 250 ml q 48 hours RDN follow-up: 09/14/20
[2020-09-14] VITALS (23 sets, daily range): BP systolic 99–133; BP diastolic 53–92
[2020-09-14 05:04] LABS: BASOPHILS 0.1 % (0-2); EOSINOPHILS 0.1 % (0-7); HEMOGLOBIN 9.1 g/dL (13.5-17.5); IMMATURE GRANULOCYTES 0.9 % (0-5); LYMPHOCYTE ABS# 1.14 10x3/uL (1.32-3.57); LYMPHOCYTES 13.2 % (15-50); MCH 24.5 pg (26.0-34.0); MCHC 29.4 g/dL (31.0-37.0); MCV 83.3 fL (80.0-100.0); MONOCYTES 10.9 % (2-11); NEUTROPHIL ABS# 6.46 10x3/uL (1.78-5.38); NEUTROPHILS 74.8 % (40-80); PLATELET COUNT 64 10x3/uL (130-400); RBC 3.72 10x6/uL (4.20-6.10); RDW 22.2 % (11.5-14.5)
[2020-09-14 05:17] LABS: ALBUMIN 2.1 g/dL (3.4-5.0); ALKALINE PHOSPHATASE 108 U/L (30-120); ALT (SGPT) 42 U/L (10-68); BILIRUBIN - TOTAL 0.97 mg/dL (0.2-1.3); CALCIUM 8.6 mg/dL (8.5-10.1); CARBON DIOXIDE 37.8 mmol/L (21.0-32.0); CHLORIDE - SERUM 97 mmol/L (98-107); CREATININE - SERUM 0.6 mg/dL (0.6-1.3); MAGNESIUM - SERUM 2.1 mg/dL (1.8-2.4); POTASSIUM - SERUM 3.1 mmol/L (3.5-5.1); PROTEIN - SERUM 5.4 g/dL (6.4-8.2); SODIUM 135 mmol/L (136-145); UREA NITROGEN 20 mg/dL (7-18); eGFR NON AFRICAN AMERICAN > 90 mL/min (90-120)
[2020-09-14 05:34] LABS: WBC 8.6 10x3/uL (4.8-10.8)
[2020-09-14 05:35] LABS: CALC OSMOLALITY 275 mosm/kg (275-300); GLUCOSE 152 mg/dL (74-106)
--- NOTE | 2020-09-14 05:43 | NUR ---
DR. IVA GARCIA. NOTIFIED OF SIGNIFICANT LEFT UPPER EXTREMITIY SWELLING COMPARED TO RIGHT UPPER EXTREMITY. LEFT RADIAL AND BRACHIAL PULSES HEARD WITH DOPPLER. LEFT ARM WARM TO TOUCH AND PT REPORTS PAIN AND STIFFNESS. MD VERBALIZED ACKNOWLEDGEMENT. ORDERS RECEIVED FOR VENOUS ULTRASOUND OF LEFT UPPER EXTREMITY.
--- NOTE | 2020-09-14 08:30 | NUR ---
DR. HUA ROUNDS ON PT. OKAYS TO TAKE OFF CHEMO PRECAUTION.
--- NOTE | 2020-09-14 09:01 | NUR ---
Nutrition follow-up: Diet: regular soft PO intake continues to be poor due to breathing issues TPN infusing @ 40 ml/hr; 20% 250 ml intralipids q 48 hours Labs reviewed; K, PO4 low Recommend riders Will continue current TPN at this time Follow-up: 09/15/20
--- NOTE | 2020-09-14 09:20 | NUR ---
DR. MELISA LEE. ORDERS RECEIVED.
[2020-09-14 14:11] LABS: CALC OSMOLALITY 281 mosm/kg (275-300); CALCIUM 8.3 mg/dL (8.5-10.1); CARBON DIOXIDE 35.5 mmol/L (21.0-32.0); CHLORIDE - SERUM 99 mmol/L (98-107); CREATININE - SERUM 0.5 mg/dL (0.6-1.3); GLUCOSE 143 mg/dL (74-106); POTASSIUM - SERUM 3.7 mmol/L (3.5-5.1); SODIUM 138 mmol/L (136-145); UREA NITROGEN 23 mg/dL (7-18); eGFR NON AFRICAN AMERICAN > 90 mL/min (90-120)
--- NOTE | 2020-09-14 18:50 | NUR ---
Pt resting in bed with no acute distress noted. Pt denies any needs or pain and does not want a bath at this time.
[2020-09-15] VITALS (24 sets, daily range): BP systolic 101–148; BP diastolic 57–74
[2020-09-15 04:49] LABS: ALKALINE PHOSPHATASE 122 U/L (30-120); ALT (SGPT) 42 U/L (10-68); BILIRUBIN - TOTAL 1.09 mg/dL (0.2-1.3); CALCIUM 8.1 mg/dL (8.5-10.1); CHLORIDE - SERUM 96 mmol/L (98-107); CREATININE - SERUM 0.6 mg/dL (0.6-1.3); GLUCOSE 152 mg/dL (74-106); PRO BNP 473 pg/mL (0-125); PROTEIN - SERUM 6.2 g/dL (6.4-8.2); SODIUM 138 mmol/L (136-145); eGFR NON AFRICAN AMERICAN > 90 mL/min (90-120)
[2020-09-15 05:13] LABS: HEMATOCRIT 29.2 % (42.0-54.0); HEMOGLOBIN 8.8 g/dL (13.5-17.5); MCH 25.8 pg (26.0-34.0); MCHC 30.1 g/dL (31.0-37.0); MCV 85.6 fL (80.0-100.0); MEAN PLATELET VOLUME 10.8 fL (7.4-10.4); NEUTROPHILS 87.2 % (40-80); PLATELET COUNT 75 10x3/uL (130-400); RBC 3.41 10x6/uL (4.20-6.10); RDW 22.4 % (11.5-14.5); WBC 15.3 10x3/uL (4.8-10.8)
[2020-09-15 05:15] LABS: UREA NITROGEN 16 mg/dL (7-18)
[2020-09-15 05:16] LABS: CALC OSMOLALITY 279 mosm/kg (275-300)
[2020-09-15 05:18] LABS: CARBON DIOXIDE 40.3 mmol/L (21.0-32.0); POTASSIUM - SERUM 2.4 mmol/L (3.5-5.1)
--- NOTE | 2020-09-15 06:06 | NUR ---
No change in patient status. Remained on BiPAP 70%, tolerated well. Able to take meds. Lethargic, but easily aroused to voice and cooperative with care. Mepilex applied to redness at sacrum/buttocks, skin intact, heels off loaded with pillow. BUE elevated on pillows to decrease swelling. Left infusaport patent and infusing, adequate blood return when aspirated, flushes easily. Amiodarone drip continues at 0.5mg, BP and HR adequate. See flowsheets for details.
[2020-09-15 09:04] LABS: MAGNESIUM - SERUM 1.9 mg/dL (1.8-2.4); PHOSPHOROUS 2.3 mg/dL (2.5-4.9)
--- NOTE | 2020-09-15 09:46 | NUR ---
Nutrition follow-up: Chart and labs reviewed K, PO4 continue low Wt: 211# TPN formula adjusted; sent to pharmacy RDN follow-up: 09/16/20
[2020-09-15 11:56] LABS: PROTEIN - BODY FLUID 2.2 G/DL
[2020-09-15 16:55] LABS: CALC OSMOLALITY 278 mosm/kg (275-300); CARBON DIOXIDE 43.4 mmol/L (21.0-32.0); CHLORIDE - SERUM 96 mmol/L (98-107); CREATININE - SERUM 0.7 mg/dL (0.6-1.3); GLUCOSE 103 mg/dL (74-106); MAGNESIUM - SERUM 1.7 mg/dL (1.8-2.4); POTASSIUM - SERUM 2.4 mmol/L (3.5-5.1); SODIUM 139 mmol/L (136-145); UREA NITROGEN 14 mg/dL (7-18); eGFR NON AFRICAN AMERICAN > 90 mL/min (90-120)
[2020-09-16] VITALS (24 sets, daily range): BP systolic 106–150; BP diastolic 55–76
[2020-09-16 00:56] LABS: ALBUMIN 3.4 g/dL (3.4-5.0); ALKALINE PHOSPHATASE 116 U/L (30-120); ALT (SGPT) 36 U/L (10-68); BILIRUBIN - TOTAL 1.22 mg/dL (0.2-1.3); CALC OSMOLALITY 276 mosm/kg (275-300); CALCIUM 8.6 mg/dL (8.5-10.1); CHLORIDE - SERUM 95 mmol/L (98-107); CREATININE - SERUM 0.6 mg/dL (0.6-1.3); GLUCOSE 132 mg/dL (74-106); PROTEIN - SERUM 6.4 g/dL (6.4-8.2); SODIUM 137 mmol/L (136-145); UREA NITROGEN 15 mg/dL (7-18); eGFR NON AFRICAN AMERICAN > 90 mL/min (90-120)
[2020-09-16 01:00] LABS: POTASSIUM - SERUM 3.2 mmol/L (3.5-5.1)
[2020-09-16 01:04] LABS: CARBON DIOXIDE 40.6 mmol/L (21.0-32.0)
[2020-09-16 06:21] LABS: ALBUMIN 3.2 g/dL (3.4-5.0); ALKALINE PHOSPHATASE 121 U/L (30-120); ALT (SGPT) 35 U/L (10-68); BILIRUBIN - TOTAL 1.22 mg/dL (0.2-1.3); CALC OSMOLALITY 276 mosm/kg (275-300); CHLORIDE - SERUM 97 mmol/L (98-107); CREATININE - SERUM 0.6 mg/dL (0.6-1.3); GLUCOSE 153 mg/dL (74-106); PROTEIN - SERUM 6.2 g/dL (6.4-8.2); SODIUM 136 mmol/L (136-145); UREA NITROGEN 17 mg/dL (7-18); eGFR NON AFRICAN AMERICAN > 90 mL/min (90-120)
[2020-09-16 06:27] LABS: POTASSIUM - SERUM 2.9 mmol/L (3.5-5.1)
[2020-09-16 06:28] LABS: CARBON DIOXIDE 40.3 mmol/L (21.0-32.0)
[2020-09-16 06:37] LABS: HEMATOCRIT 28.7 % (42.0-54.0); HEMOGLOBIN 8.5 g/dL (13.5-17.5); MCH 24.8 pg (26.0-34.0); MCHC 29.6 g/dL (31.0-37.0); MCV 83.7 fL (80.0-100.0); MEAN PLATELET VOLUME 10.8 fL (7.4-10.4); PLATELET COUNT 81 10x3/uL (130-400); RBC 3.43 10x6/uL (4.20-6.10); RDW 22.4 % (11.5-14.5); WBC 30.1 10x3/uL (4.8-10.8)
[2020-09-16 08:01] LABS: PHOSPHOROUS 2.4 mg/dL (2.5-4.9)
[2020-09-16 08:02] LABS: MAGNESIUM - SERUM 2.3 mg/dL (1.8-2.4)
--- NOTE | 2020-09-16 08:40 | NUR ---
Nutrition follow-up: Chart and labs reviewed TPN continues @ 40 ml/hr with intralipids q 48 hours Labs reviewed; K continues low, PO4 low; TPN adjussted 09/15/20 Will continue current TPN today and reassess 09/17/20 RDN following.
--- NOTE | 2020-09-16 10:03 | NUR ---
IRIS REINA DURING ROUNDS WITH DR VINCENT
--- NOTE | 2020-09-16 12:08 | NUR ---
CALLED DR FUENTES PER NURSING INSTRUCTION X2 WITH NO ANSWER AND NO VM SET UP, CALLED ANSWERING SERVICE AND RECIEVED RETURN CALL STATING HE DID NOT WANT HIS CURRENT K ORDERS FOLLOWED AND TO GIVE ONE DOSE OF PO K ORDERED THEN DC ORDER AND GIVE 40K OVER 2 HOURS THEN RECHECK 1430 AND HE WILL COME TO UNIT AND REEVAL. ORDERS VERIFIED AND READ BACK. SPOKE WITH PHARMACY TO UPDATE
--- NOTE | 2020-09-16 12:41 | NUR ---
PT HR ELEUTERIO INTO 40S SINCE BEGINNING K IV, ATTEMPTED TO CALL DR FUENTES WITHOUT ANSWER, NO VM SET UP, PAGED VIA ANSWERING SERVICE, AWAITING RETURN CALL
--- NOTE | 2020-09-16 12:44 | NUR ---
DR FUENTES RETURNED CALL, ORDERS TO DC IV K AND GIVE ANOTHER 40 MEQ K PO
--- NOTE | 2020-09-16 13:44 | NUR ---
PT HAD LARGE INCONTINENT LIQUID BM, MEPILEX AND LINENS CHANGED, MCCONNELL CARE PROVIDED
[2020-09-16 14:07] LABS: HYPOCHROMASIA OCC; LYMPHOCYTES 9 % (15-50); MONOCYTES 11 % (2-11); NEUTROPHILS 64 % (40-80); PLATELET ESTIMATE DECREASED
--- NOTE | 2020-09-16 15:44 | NUR ---
ATTEMPTED TO CALL DR FUENTES TO NOTIFY OF K
--- NOTE | 2020-09-16 16:03 | NUR ---
K CALLED TO DR FUENTES, ORDERS FOR 40K NOW AND 40K AT 9PM AND REDRAW AT 11PM, READ BACK AND VERIFIED ORDERS.
--- NOTE | 2020-09-16 19:33 | NUR ---
PT IN BED AT THIS TIME, 40% ON BIPAP. GUARD AT BEDSIDE. MCCONNELL CLEAR YELLOW. VSS. NAD NOTED. NO NEEDS AT THIS TIME. WILL CONTINUE TO MONITOR
[2020-09-17] VITALS (20 sets, daily range): BP systolic 90–128; BP diastolic 52–74
[2020-09-17 04:50] LABS: HEMATOCRIT 29.8 % (42.0-54.0); HEMOGLOBIN 8.7 g/dL (13.5-17.5); LYMPHOCYTES 4.3 % (15-50); MCH 25.1 pg (26.0-34.0); MCHC 29.2 g/dL (31.0-37.0); MCV 85.9 fL (80.0-100.0); NEUTROPHILS 89.1 % (40-80); PLATELET COUNT 113 10x3/uL (130-400); RBC 3.47 10x6/uL (4.20-6.10); RDW 22.4 % (11.5-14.5); WBC 25.8 10x3/uL (4.8-10.8)
[2020-09-17 05:22] LABS: ALBUMIN 2.9 g/dL (3.4-5.0); ALKALINE PHOSPHATASE 141 U/L (30-120); ALT (SGPT) 32 U/L (10-68); BILIRUBIN - TOTAL 0.85 mg/dL (0.2-1.3); CALC OSMOLALITY 277 mosm/kg (275-300); CALCIUM 8.6 mg/dL (8.5-10.1); CARBON DIOXIDE 33.2 mmol/L (21.0-32.0); CHLORIDE - SERUM 102 mmol/L (98-107); CREATININE - SERUM 0.6 mg/dL (0.6-1.3); GLUCOSE 151 mg/dL (74-106); MAGNESIUM - SERUM 2.2 mg/dL (1.8-2.4); PHOSPHOROUS 2.4 mg/dL (2.5-4.9); POTASSIUM - SERUM 3.9 mmol/L (3.5-5.1); PROTEIN - SERUM 6.1 g/dL (6.4-8.2); SODIUM 137 mmol/L (136-145); UREA NITROGEN 16 mg/dL (7-18); eGFR NON AFRICAN AMERICAN > 90 mL/min (90-120)
--- NOTE | 2020-09-17 07:35 | NUR ---
Nutrition follow-up: chart and labs reviewed Wt: 209# Diet order: Regular with continued poor po intake due to breathing issues, BIPAP TPN infusing @ 40 ml/hr; lipids 20% 250 ml q 48 hours Will continue current TPN today and follow-up: 09/18/20
--- NOTE | 2020-09-17 11:01 | NUR ---
0700- NOTIFIED BY ULTRASOUND OF ORDER FOR ULTRASOUND OF LEFT ARM FOR CONCERN OF DVT. ULTRASOUND REPORTS COMPLETED ULTRASOUND 2 DAYS AGO AND RESULTS WERE POSITIVE FOR DVT. RESLUTS ARE NOT IN SYSTEM THEREFORE WAS NOT CONTACTED OR AWARE OF RESULTS. MD SANDOVAL NOTIFIED @ 5942.
[2020-09-18] VITALS (48 sets, daily range): BP systolic 85–116; BP diastolic 43–67
[2020-09-18 04:54] LABS: ALBUMIN 2.6 g/dL (3.4-5.0); ALKALINE PHOSPHATASE 125 U/L (30-120); ALT (SGPT) 32 U/L (10-68); BILIRUBIN - TOTAL 0.78 mg/dL (0.2-1.3); CALC OSMOLALITY 277 mosm/kg (275-300); CALCIUM 8.6 mg/dL (8.5-10.1); CARBON DIOXIDE 30.8 mmol/L (21.0-32.0); CHLORIDE - SERUM 103 mmol/L (98-107); CREATININE - SERUM 0.5 mg/dL (0.6-1.3); GLUCOSE 122 mg/dL (74-106); MAGNESIUM - SERUM 2.1 mg/dL (1.8-2.4); POTASSIUM - SERUM 3.8 mmol/L (3.5-5.1); PROTEIN - SERUM 5.8 g/dL (6.4-8.2); SODIUM 138 mmol/L (136-145); UREA NITROGEN 16 mg/dL (7-18); eGFR NON AFRICAN AMERICAN > 90 mL/min (90-120)
[2020-09-18 04:58] LABS: PHOSPHOROUS 3.6 mg/dL (2.5-4.9)
[2020-09-18 04:59] LABS: HEMATOCRIT 29.5 % (42.0-54.0); HEMOGLOBIN 8.7 g/dL (13.5-17.5); LYMPHOCYTES 5.6 % (15-50); MCH 25.4 pg (26.0-34.0); MCHC 29.5 g/dL (31.0-37.0); MCV 86.3 fL (80.0-100.0); MEAN PLATELET VOLUME 10.3 fL (7.4-10.4); NEUTROPHILS 88.6 % (40-80); PLATELET COUNT 116 10x3/uL (130-400); RBC 3.42 10x6/uL (4.20-6.10); WBC 20.1 10x3/uL (4.8-10.8)
--- NOTE | 2020-09-18 06:44 | NUR ---
Nutrition follow-up: Chart and labs reviewed Diet order: Regular and po intake continues poor due to BIPAP TPN infusing @ 40 ml/hr; unable to increase due to volume overload Will continue current TPN today Recommendations: Encourage increased po intake RDN follow-up: 09/19/20
[2020-09-18 09:39] LABS: ALBUMIN 2.7 g/dL (3.4-5.0); ALKALINE PHOSPHATASE 123 U/L (30-120); ALT (SGPT) 32 U/L (10-68); CALC OSMOLALITY 282 mosm/kg (275-300); CALCIUM 8.6 mg/dL (8.5-10.1); CARBON DIOXIDE 34.2 mmol/L (21.0-32.0); CHLORIDE - SERUM 104 mmol/L (98-107); CREATININE - SERUM 0.5 mg/dL (0.6-1.3); GLUCOSE 160 mg/dL (74-106); POTASSIUM - SERUM 4.3 mmol/L (3.5-5.1); SODIUM 139 mmol/L (136-145); UREA NITROGEN 19 mg/dL (7-18); eGFR NON AFRICAN AMERICAN > 90 mL/min (90-120)
--- NOTE | 2020-09-18 09:45 | NUR ---
CONTACTED CAPT HARDWICK- PT'S GUARD's SUPERIOR TO OBTAIN CONSENT FOR PROCEDURE POLICY. CAPT. GUZMÁN INFORMED ME VIA PHONE IS PT IS AAOX3 THE PT CAN SELF CONSENT. MD Bustillo INFORMED. WILL CONTINUE TO MONITOR CAPT GUZMÁN- [phone]- GUARD'S SUPERVIOSR Bhupendra RARIOLA- [phone]- MOLDING MACHINE OPERATOR
[2020-09-18 09:54] LABS: APTT 28.4 SECONDS (22.8-39.4); INR 1.57 (0.85-1.17); PROTIME 17.4 SECONDS (11.6-15.0)
[2020-09-18 09:59] LABS: HEMATOCRIT 29.4 % (42.0-54.0); HEMOGLOBIN 8.6 g/dL (13.5-17.5); MCH 24.5 pg (26.0-34.0); MCHC 29.3 g/dL (31.0-37.0); MEAN PLATELET VOLUME 10.2 fL (7.4-10.4); NEUTROPHIL ABS# 15.33 10x3/uL (1.78-5.38); PLATELET COUNT 123 10x3/uL (130-400); RBC 3.51 10x6/uL (4.20-6.10); WBC 18.9 10x3/uL (4.8-10.8)
[2020-09-18 10:02] LABS: MCV 83.8 fL (80.0-100.0)
[2020-09-18 13:09] LABS: ANISOCYTOSIS OCC; HYPOCHROMASIA OCC; LYMPHOCYTES 11 % (15-50); MONOCYTES 9 % (2-11); NEUTROPHILS 65 % (40-80); PLATELET ESTIMATE NORMAL
[2020-09-18 13:57] LABS: PROTEIN - BODY FLUID 4.2 G/DL
[2020-09-18 15:32] LABS: NEUT - BF 63 %
--- NOTE | 2020-09-18 15:32 | NUR ---
RECIEVED PT FROM OR @ 1240. PT INTUBATED- SIZE 8.0 ET TUBE, 24 @ TEETH, ART-LINE PRESENT, CHEST TUBE PRESENT, CHEST XRAY ORDERED TO CONFIRM PLACEMETN. RT TO REPOSITION TUBE. PT HYPOTENSIVE MICHAEL STARTED INCREASED TO 0.9 (MAX RATE) TO CORRECT HYPOTENSION. MD AWARE. PT AWAKE, FIGHTING VENT, ATTEMPTNG TO GET OUT OF BED. RECIEVED ORDERS FOR SEDATION. 1250- SEDATION STARTED (PROP) @ 20MCG 1300- PT PLACED IN BILATERAL SOFT WRIST RESTRAINTS. WILL CONTINUE TO MONITOR.
[2020-09-19] VITALS (40 sets, daily range): BP systolic 84–104; BP diastolic 44–64
[2020-09-19 03:59] LABS: BASOPHILS 0.2 % (0-2); EOSINOPHILS 0.1 % (0-7); HEMATOCRIT 27.9 % (42.0-54.0); HEMOGLOBIN 8.5 g/dL (13.5-17.5); LYMPHOCYTE ABS# 2.28 10x3/uL (1.32-3.57); LYMPHOCYTES 8.5 % (15-50); MCH 25.1 pg (26.0-34.0); MCHC 30.5 g/dL (31.0-37.0); MCV 82.3 fL (80.0-100.0); MEAN PLATELET VOLUME 9.8 fL (7.4-10.4); MONOCYTES 11.7 % (2-11); NEUTROPHIL ABS# 20.05 10x3/uL (1.78-5.38); NEUTROPHILS 74.5 % (40-80); PLATELET COUNT 183 10x3/uL (130-400); RBC 3.39 10x6/uL (4.20-6.10); WBC 26.9 10x3/uL (4.8-10.8)
[2020-09-19 04:03] LABS: CALC OSMOLALITY 279 mosm/kg (275-300); CALCIUM 8.1 mg/dL (8.5-10.1); CARBON DIOXIDE 28.5 mmol/L (21.0-32.0); CHLORIDE - SERUM 108 mmol/L (98-107); CREATININE - SERUM 0.4 mg/dL (0.6-1.3); GLUCOSE 122 mg/dL (74-106); POTASSIUM - SERUM 3.8 mmol/L (3.5-5.1); SODIUM 140 mmol/L (136-145); eGFR NON AFRICAN AMERICAN > 90 mL/min (90-120)
[2020-09-19 04:05] LABS: UREA NITROGEN 13 mg/dL (7-18)
[2020-09-19 08:47] LABS: PHOSPHOROUS 3.2 mg/dL (2.5-4.9)
--- NOTE | 2020-09-19 08:49 | NUR ---
Nutrition follow-up: Pt now intubated, sedated with propofol @ 20 mcg/kg/min following procedure TPN @ 40 ml/hr with lipids q 48 hours Labs reviewed Wt: 201# Possible extubation today. Will continue current TPN formula today. If pt remains intubated will need to discontinue lipids; start TF. RDN follow-up: 09/20/20
--- NOTE | 2020-09-19 09:43 | OP ---
PATIENT NAME: JULIANN ANNE MEDICAL RECORD: [id number] :78 LOCATION:D.[facility] D.08 ADMISSION DATE:08/17/20 SURGEON: FELICIA DOMINGO MD DATE OF OPERATION: 09/18/2020 SURGEON: MD Amanda PROCEDURE PERFORMED: Subxiphoid pericardial window. PREOPERATIVE DIAGNOSIS: Malignant pericardial effusion. POSTOPERATIVE DIAGNOSIS: Malignant pericardial effusion. ANESTHESIA: General endotracheal anesthesia. ESTIMATED BLOOD LOSS: Minimal. SPECIMENS: 1. Pericardial fluid for cell count, chemistry, cytology. 2. Pericardial biopsy. COMPLICATIONS: None. CONDITION: Stable. DISPOSITION: CV ICU. OPERATIVE FINDINGS: 1. No significant hypotension after intubation and positive pressure ventilation. NELLI revealed large circumferential pericardial effusion and complete drainage after the pericardial window. 2. Bloody pericardial effusion 670 mL. OPERATIVE INDICATION: Large pericardial effusion, malignancy. DESCRIPTION OF PROCEDURE: The patient was brought to the operating suite. General anesthesia was obtained. Chest was prepped and draped. Incision was made over the xiphoid. Upward retraction on the costal margin was performed. The inferior aspect of the pericardium was identified and aspiration was performed. An incision was made and a total of 670 mL of fluid was removed, there were no significant changes in blood pressure after drainage. Transesophageal echocardiography confirmed removal. A 1 x 1 cm pericardial biopsy was performed. A 24-Nepalese Niranjan drain was placed through a separate stab wound and onto the diaphragmatic surface of the heart. The wound was then closed with fascia, subcutaneous, subcuticular and Dermabond. The patient to CV ICU stable. TRANSINT:[id number] Voice Confirmation ID: [id number] DOCUMENT ID: [id number] OPERATIVE REPORT [id number] DAYANAJULIANN Christensen FELICIA DOMINGO MD at 0943 CC: DENIZ VINCENT MD and TOYIN JAFFE DO [id number] DICTATION DATE: 09/18/20 1238 DOCUMENTATION WRITER: 09/18/20 2304 ADM IN [place] [id number]
--- NOTE | 2020-09-19 14:03 | NUR ---
AWAKES EASILY ON ARRIVAL. OBEYING COMMANDS, MOVES ALL EXTREMITITES ON REQUEST. BILATERAL HAND CIVIL ATTORNEY EQUAL AND STRONG. ETT SECURE TO VENT. NG CLAMPED. BILATERAL LUNG SOUNDS GREATER ON RIGHT THAN LEFT. LEFT PORT INFUSING WITH NS KVO. NEOSYPHERINE AT 0.9 MCG/KG/MIN. TPN AT 40 ML HOUR. DIPRIVAN INFUSING IN RIGHT HAND IV, RIGHT AC INFUSING WITH ZINCEF. MCCONNELL CATH PATENT. PERICARDIAL DRAIN TO GRAVITY DRAINAGE SEROUS DRAINAGE. SCD ON LOWER LEGS. NO DISTRESS. DIPRIVAN DC'D AND PLACED ON CPAP TRIAL. BRONCHOSCOPY THIS AM PER DR. VINCENT. PATIENT TOLERATED WELL. HEAD OF BED ELEVATED 30 DEGREES. MONITOR SR.
--- NOTE | 2020-09-19 15:15 | NUR ---
EXTUBATED. ON NC FOR 15 MIN. THEN PLACED ON BIPAP. ALERT OBEYING COMMANDS. DRESSING SUBSTERNAL DRY AND INTACT. CHEST TUBE CONTINUES TO DRAIN. ENCOURAGE NOT TO TALK AT THIS TIME.
--- NOTE | 2020-09-19 18:16 | NUR ---
TOLERATING BIPAP WELL. MEDIPLEX APPLIED TO BUTTOCK. SEROSANGEOUS DRAINAGE NOTED. LARGE PURPLE AREA NOTED ON BOTH BUTTOCK.
[2020-09-20] VITALS (17 sets, daily range): BP systolic 79–108; BP diastolic 45–68
--- NOTE | 2020-09-20 07:30 | NUR ---
REPOSITIONED ON LEFT SIDE WITH WEDGES. MEDIPLEX DRESSING ON BUTTOCK IS DRY AND INTACT. ALERT ABLE TO HELP TURN SELF SOME. PERICARDIAL DRAIN INTACT SEROUS DRAINAGE IN TUBING. DRESSINGS DRY AND INTACT. ON BIPAP AT 40%. NO DISTRESS. LEFT SHOULD PORT INFUSING WITH TPN AT 40 ML HOUR. NEOSYNPHERINE DECREASED TO 0.2 MCG/KG/MIN. MCCONNELL PATENT WITH CLOUDY PASCUAL URINE. HEAD OF BED ELEVATED 30 DEGREES.
--- NOTE | 2020-09-20 09:30 | NUR ---
BI PAP REMOVED PLACED ON HIGH FLOW NC AT 10 LITERS. SIPS OF WATER GIVEN, PATIENT STARTED COUGHING AND HAVING DIFFICULTY SWALLOWING IMMEDICATELY. DR. VINCENT NOTIFIED. NO PO MEDS GIVEN.TOLERATED 20 MIN. OFF BI PAP AND PULSE OX DROPPED INTO 88%, PATEINT RETURNED TO BIPAP. PATIENT WAS SWEATY WHEN PLACED BACK ON BIPAP.
--- NOTE | 2020-09-20 09:45 | NUR ---
PATIENT TURNED ON RIGHT SIDE, PATIENT STARTED HAVING RUNS OF ATRIAL FIB WITH BLOOD PRESSURE DROPPING INTO 70'S, NEOSYNEPHRINE TURNED UP TO 0.5 MCG/KG/MIN. TILTED BED TOWARD LEFT. PATIENT RETURNED BACK INTO SR. WITH BLOOD PRESSURE IMPROVING. WEANING NEOSYNEPHRINE TO MAINTAIN SBP GREATER THAN 90 AND MEAN OF 65.
[2020-09-20 10:28] LABS: BASOPHILS 0.2 % (0-2); EOSINOPHILS 0 % (0-7); HEMATOCRIT 27.4 % (42.0-54.0); HEMOGLOBIN 8.3 g/dL (13.5-17.5); LYMPHOCYTE ABS# 1.42 10x3/uL (1.32-3.57); LYMPHOCYTES 8.6 % (15-50); MCH 25.2 pg (26.0-34.0); MCHC 30.3 g/dL (31.0-37.0); MCV 83.3 fL (80.0-100.0); MEAN PLATELET VOLUME 10.2 fL (7.4-10.4); MONOCYTES 9.2 % (2-11); NEUTROPHIL ABS# 12.38 10x3/uL (1.78-5.38); PLATELET COUNT 173 10x3/uL (130-400); RBC 3.29 10x6/uL (4.20-6.10); RDW 23.2 % (11.5-14.5); WBC 16.5 10x3/uL (4.8-10.8)
[2020-09-20 10:34] LABS: CALC OSMOLALITY 277 mosm/kg (275-300); CALCIUM 8.1 mg/dL (8.5-10.1); CARBON DIOXIDE 28.8 mmol/L (21.0-32.0); CHLORIDE - SERUM 107 mmol/L (98-107); CREATININE - SERUM 0.5 mg/dL (0.6-1.3); GLUCOSE 132 mg/dL (74-106); POTASSIUM - SERUM 3.9 mmol/L (3.5-5.1); SODIUM 138 mmol/L (136-145); UREA NITROGEN 12 mg/dL (7-18); eGFR NON AFRICAN AMERICAN > 90 mL/min (90-120)
[2020-09-20 10:41] LABS: ALBUMIN 2.1 g/dL (3.4-5.0); ALKALINE PHOSPHATASE 110 U/L (30-120); ALT (SGPT) 28 U/L (10-68); BILIRUBIN - TOTAL 0.87 mg/dL (0.2-1.3); MAGNESIUM - SERUM 2.2 mg/dL (1.8-2.4); PROTEIN - SERUM 5.6 g/dL (6.4-8.2)
--- NOTE | 2020-09-20 11:15 | NUR ---
Nutrition follow-up: Chart and labs reviewed Pt extubated with BIPAP TPN @ 40 ml/hr Diet: regular with poor po intake Will continue current TPN formula today and follow-up: 09/21/20
--- NOTE | 2020-09-20 12:16 | NUR ---
PATIENT RESTING. REPOSITIONED ON BACK. MONITOR SR. RESP RATE LESS THAN 25 ON BIPAP
--- NOTE | 2020-09-20 14:47 | NUR ---
COMPLETE HIBCLENS BATH GIVEN WITH LINEN CHANGE. ABD DRESSING CHANGED. SITE CLEAN WITH BETADINE. STERILE 4X4 APPLIED SECURE WITH TEGRADERM. DWIGHT LEFT RADIAL SKIN INTACT. NO BRUISING NOTED. GOOD WAVE FORM. MEDIPLEX SATURATED WITH SERSANGEOUS DRAINAGE. SKIN ON BOTH BUTTOCK DEEP PURPLE. MEDIPLEX REPLACED.NO SKIN BREAKDOWN OR DISCOLORATION ON HEELS. HEEL PROTECTORS REAPPLIED. PERICARDIAL DRAIN INTACT TO GRAVITY SEROUS DRAINAGE. PATEINT COOPERATIVE DURING BATH ASSIST WITH TURNING. NO ARRHYTHMIA NOTED DURING TURNING. BIPAP IN PLACE.
--- NOTE | 2020-09-20 16:45 | NUR ---
STANDING AND WALKING IN PLACE, IN FRONT OF CHAIR. TOLERATING FAIR. HERE. UPDATE GIVEN. DINNER TRAY SERVED
[2020-09-21] VITALS (55 sets, daily range): BP systolic 84–126; BP diastolic 45–582
--- NOTE | 2020-09-21 08:09 | EC ---
PATIENT:JULIANN ANNE DATE OF SERVICE: 08/17/20 SEX: M MEDICAL RECORD: [id number] DATE OF : [birth year] LOCATION:[place] [address] AGE OF PATIENT: 39 ADMISSION DATE: 08/17/20 REFERRING PHYSICIAN: INTERPRETING PHYSICIAN: CHANCE CARR MD ECHOCARDIOGRAM REPORT ECHO CHARGES 4 ECHO COMPLETE Date: 09/18/20 CLINICAL DIAGNOSIS: PERICARDIAL EFFUSION ECHOCARDIOGRAPHIC MEASUREMENTS (adult normal given) AC root (d.<3.7cm) 2.9 cm LV Septum d (<1.2 cm> 1.0 cm Valve Excursion 1.4 cm LV Septum (systole) 1.3 cm Left Atria (s.<4.0cm> 3.2 cm LVPW d(<1.2cm) 1.3 cm RV (d.<2.3cm) 3.3 cm LVPW (sytole) 1.4 cm LV diastole(<5.6CM) 4.6 cm MV E-F(>70mm/sec) 0 cm LV systole 3.2 cm LVOT Diameter 2.0 cm MV exc.(>10mm) 1.0 cm Est.ejection fraction (50-75%) 0 % DOPPLER: LVIT cm/sec A 48.0 cm/sec E 80.0 cm/sec LA 0 cm/sec RVSP 21 mmHg LVOT 96 cm/sec AOP1/2T 0 m/s Asc. Ao 117 cm/sec RVOT 95 cm/sec RA 0 cm/sec PA 108 cm/sec AV Gradient Peak 5.49 mmHg AV Mean 2.81 mmHg AV Area 2.8 cm MV Gradient Peak 2.75 mmHg MV Mean 0.92 mmHg MV Area cm COMMENTS: Price Lister: Zahida SCHMIDT Control Panel Assembler: 3 Dr. Still TAPE# PACS Pericardial Effusion N DATE OF SERVICE: 2D, color-flow imaging, spectral Doppler, and M-Mode FINDINGS: No LVH. LV internal dimensions are normal. LV wall motion appears to be mildly globally hypokinetic. EF lower limits of normal to mildly reduced at 45% to 50%. Aortic valve is tricuspid with good valve excursion. No significant AI. Left atrium is normal at 3.2 cm. Mitral valve shows no prolapse. Trivial MR. Right-sided chamber is grossly normal. Trivial TR. Note is made of a large circumferential pericardial effusion. This appears more ECHOCARDIOGRAM REPORT [id number] DAYANA,JULIANN chronic with no evidence of RA or RV collapse. This could be approachable both with a pericardial window or pericardiocentesis given size. TRANSINT:[id number] Voice Confirmation ID: [id number] DOCUMENT ID: [id number] CHANCE CARR MD at 0809 CC: [id number] DICTATION DATE: 09/18/20 09 HEAD BUTLER: 09/18/20 1323 ADM IN [facility] [address] [place] [id number]
[2020-09-21 08:42] LABS: BASOPHILS 0.3 % (0-2); CALC OSMOLALITY 276 mosm/kg (275-300); CALCIUM 8.2 mg/dL (8.5-10.1); CARBON DIOXIDE 27.1 mmol/L (21.0-32.0); CHLORIDE - SERUM 108 mmol/L (98-107); CREATININE - SERUM 0.5 mg/dL (0.6-1.3); EOSINOPHILS 0 % (0-7); GLUCOSE 141 mg/dL (74-106); HEMATOCRIT 27.2 % (42.0-54.0); IMMATURE GRANULOCYTES 6.9 % (0-5); LYMPHOCYTE ABS# 0.86 10x3/uL (1.32-3.57); LYMPHOCYTES 6.5 % (15-50); MAGNESIUM - SERUM 2.2 mg/dL (1.8-2.4); MCH 24.8 pg (26.0-34.0); MCHC 29.4 g/dL (31.0-37.0); MCV 84.5 fL (80.0-100.0); MEAN PLATELET VOLUME 9.9 fL (7.4-10.4); MONOCYTES 9.3 % (2-11); NEUTROPHIL ABS# 10.24 10x3/uL (1.78-5.38); PLATELET COUNT 191 10x3/uL (130-400); POTASSIUM - SERUM 3.7 mmol/L (3.5-5.1); RBC 3.22 10x6/uL (4.20-6.10); RDW 22.8 % (11.5-14.5); SODIUM 138 mmol/L (136-145); UREA NITROGEN 11 mg/dL (7-18); WBC 13.3 10x3/uL (4.8-10.8); eGFR NON AFRICAN AMERICAN > 90 mL/min (90-120)
[2020-09-21 08:44] LABS: PHOSPHOROUS 2.9 mg/dL (2.5-4.9)
--- NOTE | 2020-09-21 09:09 | NUR ---
Nutrition follow-up: Chart and labs reviewed Pt extubated on BIPAP PO intake continues to be poor Wt: 203# TPN infusing @ 40 ml/hr with intralipids Q 48 hours Pt still with pitting edema Will continue current TPN formula today and reevaluate 09/22/20.
--- NOTE | 2020-09-21 16:38 | NUR ---
1500 DRAIN REMOVED WITHOUT DIFFICULTY, DRESSING APPLIED, LINENS CHANGED
[2020-09-22] VITALS (24 sets, daily range): BP systolic 87–115; BP diastolic 50–67
--- NOTE | 2020-09-22 02:00 | NUR ---
PT NOT WANTING TO BE TURNED DURING SHIFT. PT INCLUDED IN BEDSIDE SHIFT REPORT AND GIVEN OPPORTUNTIY TO ASK QUESTIONS. 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 PT DID WELL WITH REMOVAL OF BIPAP FOR MEDS. MEDS CRUSHED AND PLACED IN PUDDING TO ASSIST WITH SWALLOWING. MARS WELL, NO C/O. ALARMS SET AND FREQUENT OBSERVATION OF PT.
[2020-09-22 04:53] LABS: BASOPHILS 0.2 % (0-2); EOSINOPHILS 0 % (0-7); HEMATOCRIT 30.9 % (42.0-54.0); HEMOGLOBIN 9.6 g/dL (13.5-17.5); IMMATURE GRANULOCYTES 6.4 % (0-5); LYMPHOCYTE ABS# 1.01 10x3/uL (1.32-3.57); MCH 25.9 pg (26.0-34.0); MCHC 31.1 g/dL (31.0-37.0); MCV 83.3 fL (80.0-100.0); MEAN PLATELET VOLUME 9.7 fL (7.4-10.4); MONOCYTES 9.4 % (2-11); NEUTROPHIL ABS# 8.46 10x3/uL (1.78-5.38); PLATELET COUNT 195 10x3/uL (130-400); RBC 3.71 10x6/uL (4.20-6.10); RDW 21.1 % (11.5-14.5); WBC 11.3 10x3/uL (4.8-10.8)
[2020-09-22 05:02] LABS: CALC OSMOLALITY 273 mosm/kg (275-300); CALCIUM 8.2 mg/dL (8.5-10.1); CHLORIDE - SERUM 107 mmol/L (98-107); CREATININE - SERUM 0.4 mg/dL (0.6-1.3); GLUCOSE 122 mg/dL (74-106); MAGNESIUM - SERUM 2.2 mg/dL (1.8-2.4); PHOSPHOROUS 3.5 mg/dL (2.5-4.9); POTASSIUM - SERUM 3.8 mmol/L (3.5-5.1); SODIUM 137 mmol/L (136-145); UREA NITROGEN 9 mg/dL (7-18); eGFR NON AFRICAN AMERICAN > 90 mL/min (90-120)
--- NOTE | 2020-09-22 12:25 | NUR ---
Nutrition follow-up: Chart and labs reviewed Pt wearing BIPAP Diet: Regular moist mechanical soft with nectar thick liquids PO intake continues to be poor TPN @ 40 ml/hr; lipids q 48 hours Will continue current TPN today and reassess 09/23/20.
--- NOTE | 2020-09-22 13:52 | TEE ---
PATIENT:JULIANN ANNE MEDICAL RECORD: [id number] LOCATION:[place] [address] AGE OF PATIENT: 39 ADMISSION DATE: 08/17/20 SEX: M REFERRING PHYSICIAN: INTERPRETING PHYSICIAN: CHANCE CARR MD TRANSESOPHAGEAL ECHOCARDIOGRAM Date: 09/18/20 NELLI CHARGE Y INDICATIONS: PERICARDIAL EFFUSION PREMEDICATIONS: PATIENT'S RESPONSE PROCEDURE DOPPLER MEASUREMENTS: LVIT LA 0 PA 108 RA 0 LVOT 96 RVOT 95 Asc. Ao 117 AV Gradient Peak 5.49 AV Mean 2.81 AV Area 2.8 MV Gradient Peak 2.75 MV Mean 0.92 MV Area INTERPRETATION: Doppler: 2-D: COLOR FLOW DOPPLER NORMAL SALINE STUDY: MISCELLANOUS: DIAGNOSIS: PLAN: Steamfitter Supervisor:3 Dr. Still [employer] Specialist: Zahida SCHMIDT COMMENTS: DATE OF SERVICE: 09/21/2020 PROCEDURE: Intraoperative NELLI. Preoperatively shows normal LV wall motion and wall thickening. EF is greater than 55%. Aortic valve is tricuspid with good valve excursion. Left atrium appears normal. Mitral valve appears normal. Trivial MR. Right-sided chambers are grossly normal. Miscellaneous large circumferential pericardial effusion is noted preoperatively. TRANSESOPHAGEAL ECHOCARDIOGRAM REPORT [id number] JULIANN ANNE Postoperatively, normal wall motion, normal wall thickening. EF 55%. Aortic valve is tricuspid, mitral valve appears normal. Left atrium appears normal. Resolution of the pericardial effusion is noted with appropriate physiologic decrease in heart rate as well as reexpansion of the right ventricle. TRANSINT:[id number] Voice Confirmation ID: [id number] DOCUMENT ID: [id number] at 1352 CC: [id number] DICTATION DATE: 09/21/20 0837 BALL ROLLING MACHINE OPERATOR: 09/21/20 1436 ADM IN [place] [id number] [place] [address]
[2020-09-23] VITALS (20 sets, daily range): BP systolic 89–110; BP diastolic 49–61
[2020-09-23 04:42] LABS: BASOPHILS 0.2 % (0-2); EOSINOPHILS 0 % (0-7); HEMATOCRIT 30.9 % (42.0-54.0); HEMOGLOBIN 9.3 g/dL (13.5-17.5); IMMATURE GRANULOCYTES 5.4 % (0-5); LYMPHOCYTES 8.1 % (15-50); MCH 26.4 pg (26.0-34.0); MCHC 30.1 g/dL (31.0-37.0); MEAN PLATELET VOLUME 10.5 fL (7.4-10.4); MONOCYTES 8.9 % (2-11); NEUTROPHIL ABS# 9.55 10x3/uL (1.78-5.38); NEUTROPHILS 77.4 % (40-80); RBC 3.52 10x6/uL (4.20-6.10); RDW 21.8 % (11.5-14.5); WBC 12.3 10x3/uL (4.8-10.8)
[2020-09-23 04:47] LABS: MCV 87.8 fL (80.0-100.0); PLATELET COUNT 237 10x3/uL (130-400)
[2020-09-23 04:51] LABS: CALC OSMOLALITY 273 mosm/kg (275-300); CALCIUM 7.9 mg/dL (8.5-10.1); CHLORIDE - SERUM 107 mmol/L (98-107); CREATININE - SERUM 0.5 mg/dL (0.6-1.3); GLUCOSE 136 mg/dL (74-106); MAGNESIUM - SERUM 2.2 mg/dL (1.8-2.4); POTASSIUM - SERUM 3.7 mmol/L (3.5-5.1); SODIUM 137 mmol/L (136-145); UREA NITROGEN 8 mg/dL (7-18); eGFR NON AFRICAN AMERICAN > 90 mL/min (90-120)
--- NOTE | 2020-09-23 10:10 | NUR ---
Nutrition reassessment: Pt discussed during IDT team rounds Visited with pt at bedside. Pt sitting on side of bed working with PT Pt reports continues poor appetite; however, he did say he will drink Ensure any flavor Estimated nutritional needs: 5530-9477 kcal (25-30 kcal/kg AdjBW of 72.3 kg) 72-94 g protein (1.0-1.3 gm/kg AdjBW) 5097-3073 ml fluid or per MD order Nutrition diagnosis: Continued inadequate oral inake R/T breathing issues and early satiety AEB observed poor po intake at meals; < 25% of most meals or not intake at all. Goals: - Will meet at least 65% of estimated energy needs with parenteral nutrition support - Meet est fluid needs without further fluid overload - Stable dry wt +/-5# Interventions: TPN increased to 60 ml/hr per order from Dr. Fung; pt still receiving intralipids 20% 250 ml q 48 hours. This TPN regimen will provide: 1410 kcal - 65-78% estimated kcal needs 72 gm protein - 77-100% estimated protein needs RDN will monitor TPN and make changes to formula as needed. Follow-up: 09/24/20
--- NOTE | 2020-09-23 10:51 | NUR ---
GLORIA CARE PROVIDED. MCCONNELL IN PLACE. NO LOOPS IN TUBING AND BAG PLACED BELOW PT. STAT-LOCK PRESENT.
--- NOTE | 2020-09-23 11:28 | OP ---
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 2. Deep vein thrombosis of the left jugular and axillary veins. 3. History of left subclavian vein port. 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 2. Deep vein thrombosis of the left jugular and axillary veins. 3. History of left subclavian vein port. PROCEDURE: 1. Right subclavian vein triple-lumen central venous line placement. 2. Removal of left subclavian vein port. SURGEON: Faye Perdue MD REPORT OF PROCEDURE: The patient's right chest was prepped and draped in sterile fashion. A 5 mL of 1% lidocaine with epinephrine was infused into the surrounding tissues. A needle was used to cannulate the right subclavian vein. A guidewire was advanced with ease. Over this wire, a dilator was placed followed by the triple lumen catheter. The catheter aspirated nonpulsatile dark blood and flushed easily in all 3 ports. This was sutured in place with a 2-0 nylon and dressed appropriately. The patient's left chest was then prepped and draped in sterile fashion. A 10 mL of 1% lidocaine with epinephrine was infused into the surrounding tissues overlying the left chest port. A transverse incision was made overlying the port and blunt dissection was used to come through the subcutaneous tissues. Once the port was visualized, the 2 Prolene sutures were ligated and we eviscerated the port through the wound. A 3-0 Vicryl was used to make a pursestring at the catheter insertion site. Next, the catheter was removed. The pursestring was tied down tightly. The subcutaneous tissues were then reapproximated with interrupted 3-0 Vicryl and the skin was closed with running subcutaneous 5-0 Monocryl. A dressing was then applied. COMPLICATIONS: None. CONDITION: Stable. ANESTHESIA: Local. BLOOD LOSS: Minimal. Procedure done in the CV ICU at the bedside. TRANSINT:[id number] Voice Confirmation ID: [id number] DOCUMENT ID: [id number] OPERATIVE REPORT [id number] JULIANN ANNE CHRISTIAN MD at 1128 CC: [id number] DICTATION DATE: 09/22/20 1424 ASSEMBLER SURGICAL GARMENT: 09/22/20 1804 ADM IN [place] [id number] [place] [address]
[2020-09-24] VITALS (10 sets, daily range): BP systolic 87–112; BP diastolic 52–67
[2020-09-24 05:22] LABS: BASOPHILS 0.3 % (0-2); EOSINOPHILS 0 % (0-7); HEMATOCRIT 31.3 % (42.0-54.0); HEMOGLOBIN 9.3 g/dL (13.5-17.5); IMMATURE GRANULOCYTES 4.9 % (0-5); LYMPHOCYTE ABS# 1.07 10x3/uL (1.32-3.57); MCH 25.9 pg (26.0-34.0); MCHC 29.7 g/dL (31.0-37.0); MCV 87.2 fL (80.0-100.0); MEAN PLATELET VOLUME 10.1 fL (7.4-10.4); MONOCYTES 9.4 % (2-11); NEUTROPHIL ABS# 9.07 10x3/uL (1.78-5.38); NEUTROPHILS 76.4 % (40-80); PLATELET COUNT 246 10x3/uL (130-400); RBC 3.59 10x6/uL (4.20-6.10); RDW 21.6 % (11.5-14.5); WBC 11.9 10x3/uL (4.8-10.8)
[2020-09-24 05:49] LABS: CALC OSMOLALITY 277 mosm/kg (275-300); CALCIUM 7.9 mg/dL (8.5-10.1); CARBON DIOXIDE 25.4 mmol/L (21.0-32.0); CHLORIDE - SERUM 107 mmol/L (98-107); CREATININE - SERUM 0.4 mg/dL (0.6-1.3); GLUCOSE 128 mg/dL (74-106); MAGNESIUM - SERUM 2.1 mg/dL (1.8-2.4); POTASSIUM - SERUM 3.5 mmol/L (3.5-5.1); SODIUM 139 mmol/L (136-145); UREA NITROGEN 7 mg/dL (7-18); eGFR NON AFRICAN AMERICAN > 90 mL/min (90-120)
--- NOTE | 2020-09-24 08:22 | NUR ---
Nutrition follow-up: Chart and labs reviewed TPN rate increased 09/23/20 to 60 ml/hr to better meet estimated nutritional needs. Diet order: Regular mechanical soft with nectar thick liquids Ensure TID added per pt request PO intake continues to be < 50% of meals Will continue current TPN formula and follow-up: 09/25/20
--- NOTE | 2020-09-24 15:37 | NUR ---
REPORT CALLED TO RN ON MED SURG, PT GOING TO 2224. VSS NO ACUTE DISTRESS NOTED. GUARD AT BEDSIDE.
[2020-09-25] VITALS: BP 99/56
--- NOTE | 2020-09-25 01:10 | NUR ---
PT RESTING. PT ON BI PAP @30%. PT TURNED TO RIGHT SIDE. PT HAS NO COMPLAINTS AT THE MOMENT WILL CONT TO MONITOR.
[2020-09-25 04:00] VITALS: BP 95/57
--- NOTE | 2020-09-25 05:05 | NUR ---
I have reviewed this patient and I concur with the Shift Assessment completed by the Licensed Practical Nurse today this shift.
[2020-09-25 06:23] LABS: CALC OSMOLALITY 277 mosm/kg (275-300); CALCIUM 8.1 mg/dL (8.5-10.1); CARBON DIOXIDE 24.5 mmol/L (21.0-32.0); CHLORIDE - SERUM 107 mmol/L (98-107); CREATININE - SERUM 0.4 mg/dL (0.6-1.3); GLUCOSE 119 mg/dL (74-106); SODIUM 139 mmol/L (136-145); eGFR NON AFRICAN AMERICAN > 90 mL/min (90-120)
[2020-09-25 06:29] LABS: UREA NITROGEN 9 mg/dL (7-18)
[2020-09-25 06:51] LABS: BASOPHILS 0.2 % (0-2); EOSINOPHILS 0 % (0-7); HEMATOCRIT 32.5 % (42.0-54.0); HEMOGLOBIN 9.9 g/dL (13.5-17.5); IMMATURE GRANULOCYTES 4.5 % (0-5); LYMPHOCYTE ABS# 1.12 10x3/uL (1.32-3.57); LYMPHOCYTES 7.8 % (15-50); MCH 26.1 pg (26.0-34.0); MCHC 30.5 g/dL (31.0-37.0); MCV 85.5 fL (80.0-100.0); MEAN PLATELET VOLUME 10.1 fL (7.4-10.4); MONOCYTES 9.5 % (2-11); NEUTROPHIL ABS# 11.12 10x3/uL (1.78-5.38); PLATELET COUNT 268 10x3/uL (130-400); RDW 21.7 % (11.5-14.5); WBC 14.3 10x3/uL (4.8-10.8)
--- NOTE | 2020-09-25 07:21 | NUR ---
Nutrition follow-up: Pt just out of CVICU Chart, labs reviewed TPN continues @ 60 ml/hr Diet: regular mechanical soft with nectar thick liquids; Ensure TID PO intake has improved; however, pt scheduled for chemotherapy treatments Monday and po intake may decrease. Will continue current TPN regimen @ 60 ml/hr and follow-up: 09/26/20
--- NOTE | 2020-09-25 08:06 | NUR ---
RECIEVED BEDSIDE REPORT. IN BED. GUARD AT BEDSIDE. BIPAP IN PLACE. IV INFUSING PER MAR. DENIES NEEDS AT THIS TIME. FREE FROM SIGNS OF DISTRESS. BED LOW POSITION, CALL LIGHT IN REACH. WILL CONTINUE TO MONITOR.
--- NOTE | 2020-09-25 08:08 | NUR ---
TECH CHANGING BED LINENS. CHANGED MEPILEX DRESSING TO COCCYX. SITE BLACK,WITH REDNESS AROUND THE EDGES. TENDER TO TOUCH. DRESSING CDI. WILL CONTINUE TO MONITOR.
[2020-09-25 09:23] VITALS: BP 92/54
[2020-09-25 12:31] VITALS: BP 98/55
--- NOTE | 2020-09-25 14:00 | NUR ---
PATIENT PLACED ON NASAL CANNULA. O2 95% AT 6L.
[2020-09-25 16:36] VITALS: BP 105/58
--- NOTE | 2020-09-25 17:00 | NUR ---
PLACED BACK ON BIPAP. O2 AT 95. WILL CONTINUE TO MONITOR.
[2020-09-25 20:33] VITALS: BP 105/59
--- NOTE | 2020-09-26 03:50 | NUR ---
PT STATUE MAKER LIGHT BOWEL MOVEMENT TECH CHANGING BED LINENS. CHANGED MEDIPLEX DRESSING TO COCCYX, SITE BLACK WITH REDNESS AREA AROUND EDGES. TENDER TO THE TOUCH. DRESSING CDI. BIPAP REMOVED PT PLACED ON NASAL CANULA. O2 95% @6L. PT SHOWS NO SIGNS OF DISTRESS. WILL CONT TO MONITOR.
[2020-09-26 05:47] VITALS: BP 97/56
--- NOTE | 2020-09-26 06:12 | NUR ---
I have reviewed this patient and I concur with the Shift Assessment completed by the Licensed Practical Nurse today this shift.
[2020-09-26 06:26] LABS: BASOPHILS 0.3 % (0-2); EOSINOPHILS 0 % (0-7); HEMATOCRIT 33.8 % (42.0-54.0); IMMATURE GRANULOCYTES 2.7 % (0-5); LYMPHOCYTE ABS# 0.87 10x3/uL (1.32-3.57); LYMPHOCYTES 5.5 % (15-50); MCH 25.9 pg (26.0-34.0); MCHC 29.6 g/dL (31.0-37.0); MEAN PLATELET VOLUME 9.5 fL (7.4-10.4); NEUTROPHIL ABS# 13.01 10x3/uL (1.78-5.38); NEUTROPHILS 82.5 % (40-80); PLATELET COUNT 266 10x3/uL (130-400); RBC 3.86 10x6/uL (4.20-6.10); RDW 21.8 % (11.5-14.5); WBC 15.8 10x3/uL (4.8-10.8)
[2020-09-26 06:27] LABS: MCV 87.6 fL (80.0-100.0)
[2020-09-26 06:34] LABS: CALC OSMOLALITY 278 mosm/kg (275-300); CALCIUM 8.7 mg/dL (8.5-10.1); CARBON DIOXIDE 27.4 mmol/L (21.0-32.0); CHLORIDE - SERUM 107 mmol/L (98-107); GLUCOSE 133 mg/dL (74-106); MAGNESIUM - SERUM 2.1 mg/dL (1.8-2.4); POTASSIUM - SERUM 4.1 mmol/L (3.5-5.1); SODIUM 139 mmol/L (136-145); UREA NITROGEN 10 mg/dL (7-18)
[2020-09-26 06:40] LABS: CREATININE - SERUM 0.6 mg/dL (0.6-1.3); eGFR NON AFRICAN AMERICAN > 90 mL/min (90-120)
--- NOTE | 2020-09-26 06:40 | NUR ---
MCCONNELL CHANGE 16". PT HAS NO OTHER NEEDS
--- NOTE | 2020-09-26 07:53 | NUR ---
Nutrition follow-up: Chart and labs reviewed Diet order: regular mechanical soft with nectar thick liquids; Ensure TID PO poor 09/25/20 Will continue current TPN @ 60 ml/hr RDN follow-up: 09/27/20
[2020-09-26 09:00] VITALS: BP 103/57
[2020-09-26 13:29] VITALS: BP 93/55
[2020-09-26 16:43] VITALS: BP 94/58
[2020-09-26 21:25] VITALS: BP 95/57
--- NOTE | 2020-09-27 03:00 | NUR ---
I have reviewed this patient and I concur with the Shift Assessment completed by the Licensed Practical Nurse today this shift.
[2020-09-27 05:43] LABS: BASOPHILS 0.3 % (0-2); EOSINOPHILS 0 % (0-7); HEMATOCRIT 31.1 % (42.0-54.0); HEMOGLOBIN 9.5 g/dL (13.5-17.5); LYMPHOCYTE ABS# 0.89 10x3/uL (1.32-3.57); MCH 26.3 pg (26.0-34.0); MCHC 30.5 g/dL (31.0-37.0); MCV 86.1 fL (80.0-100.0); MEAN PLATELET VOLUME 9.5 fL (7.4-10.4); MONOCYTES 12.6 % (2-11); NEUTROPHIL ABS# 9.95 10x3/uL (1.78-5.38); NEUTROPHILS 78.1 % (40-80); PLATELET COUNT 265 10x3/uL (130-400); RBC 3.61 10x6/uL (4.20-6.10); RDW 21.8 % (11.5-14.5); WBC 12.7 10x3/uL (4.8-10.8)
[2020-09-27 06:26] VITALS: BP 128/60
[2020-09-27 06:32] LABS: ALBUMIN 2.3 g/dL (3.4-5.0); ALKALINE PHOSPHATASE 163 U/L (30-120); ALT (SGPT) 58 U/L (10-68); BILIRUBIN - TOTAL 0.39 mg/dL (0.2-1.3); CALC OSMOLALITY 279 mosm/kg (275-300); CALCIUM 8.9 mg/dL (8.5-10.1); CARBON DIOXIDE 25.4 mmol/L (21.0-32.0); CHLORIDE - SERUM 107 mmol/L (98-107); GLUCOSE 156 mg/dL (74-106); POTASSIUM - SERUM 3.8 mmol/L (3.5-5.1); PROTEIN - SERUM 6.6 g/dL (6.4-8.2); SODIUM 139 mmol/L (136-145); UREA NITROGEN 11 mg/dL (7-18)
[2020-09-27 06:39] LABS: CREATININE - SERUM 0.5 mg/dL (0.6-1.3); eGFR NON AFRICAN AMERICAN > 90 mL/min (90-120)
--- NOTE | 2020-09-27 08:25 | NUR ---
Nutrition follow-up: Chart and labs reviewed Diet order: regular mechanical soft with nectar thin liquids; Ensure TID PO intake contines to be poor Noted Alk Phos starting to elevate; will discuss in IDT team rounds 09/26/20 Will continue TPN with current TPN regimen at 60 ml/hr Follow-up: 09/28/20
[2020-09-27 08:30] VITALS: BP 93/50
--- NOTE | 2020-09-27 08:37 | NUR ---
RESTING IN BED, NO DISTRESS NOTED, TPN INFUSING, NO DISTRESS NOTED, GUARD AT BEDSIDE
[2020-09-27 12:11] VITALS: BP 100/55
[2020-09-27 18:06] VITALS: BP 95/54
[2020-09-27 20:00] VITALS: BP 95/60
[2020-09-28] VITALS: BP 88/51
--- NOTE | 2020-09-28 03:00 | NUR ---
I have reviewed this patient and I concur with the Shift Assessment completed by the Licensed Practical Nurse today this shift.
[2020-09-28 04:00] VITALS: BP 92/53
[2020-09-28 06:37] LABS: ALBUMIN 2.2 g/dL (3.4-5.0); ALKALINE PHOSPHATASE 148 U/L (30-120); ALT (SGPT) 54 U/L (10-68); BILIRUBIN - TOTAL 0.37 mg/dL (0.2-1.3); CALC OSMOLALITY 276 mosm/kg (275-300); CALCIUM 8.5 mg/dL (8.5-10.1); CARBON DIOXIDE 24.9 mmol/L (21.0-32.0); CHLORIDE - SERUM 105 mmol/L (98-107); CREATININE - SERUM 0.5 mg/dL (0.6-1.3); GLUCOSE 151 mg/dL (74-106); MAGNESIUM - SERUM 2.1 mg/dL (1.8-2.4); PHOSPHOROUS 3.7 mg/dL (2.5-4.9); POTASSIUM - SERUM 3.6 mmol/L (3.5-5.1); PROTEIN - SERUM 6.4 g/dL (6.4-8.2); SODIUM 137 mmol/L (136-145); UREA NITROGEN 12 mg/dL (7-18); eGFR NON AFRICAN AMERICAN > 90 mL/min (90-120)
[2020-09-28 07:45] LABS: BASOPHILS 0.4 % (0-2); EOSINOPHILS 0.1 % (0-7); HEMATOCRIT 29.4 % (42.0-54.0); HEMOGLOBIN 9.1 g/dL (13.5-17.5); IMMATURE GRANULOCYTES 2.7 % (0-5); LYMPHOCYTE ABS# 1.07 10x3/uL (1.32-3.57); LYMPHOCYTES 10.1 % (15-50); MCH 26.4 pg (26.0-34.0); MCV 85.2 fL (80.0-100.0); MEAN PLATELET VOLUME 9.6 fL (7.4-10.4); MONOCYTES 12.9 % (2-11); NEUTROPHIL ABS# 7.79 10x3/uL (1.78-5.38); NEUTROPHILS 73.8 % (40-80); PLATELET COUNT 240 10x3/uL (130-400); RBC 3.45 10x6/uL (4.20-6.10); RDW 21.7 % (11.5-14.5); WBC 10.6 10x3/uL (4.8-10.8)
--- NOTE | 2020-09-28 08:14 | NUR ---
Nutrition follow-up: Chart and labs reviewed Diet order: regular mechanical soft, nectar thick liquids; Ensure TID PO intake continues to be poor; being encouraged to increase po intake TPN @ 60 ml/hr with 20% 250 ml lipids Q 48 hours Checking TG today Will continue current TPN @ 60 ml/hr Follow-up: 09/29/20
[2020-09-28 09:06] VITALS: BP 104/59
--- NOTE | 2020-09-28 10:26 | NUR ---
ASSESSMENT PER FLOW SHEET. PATIENT IS WITHOUT DISTRESS.HE IS ON BIPAP AT PRESENT. HE DECLINES BREAKFAST AT THIS TIME. INSTRUCTED ON Q2HOUR TURNING. VERY DARK PURPLE/BLACK AREA NOTED TO COCCXY AND BILATERAL BUTTOCKS.AREA IS HEART SHAPED AND HAS FOUL ODOR.PATIENT INSTRUCTED WHEN BACK ON 02 HIGHFLOW HE NEEDS TO BE ON LEFT SIDE AND RIGHT SIDE.
[2020-09-28 12:52] VITALS: BP 106/64
--- NOTE | 2020-09-28 13:00 | NUR ---
PATIENT BACK ON 02 6 LITERS HIGHFLOW. INSTRUCTED PATIENT AND GUARD PATIENT WILL SIT IN CHAIR.MONITOR
--- NOTE | 2020-09-28 15:10 | NUR ---
DRESSING CHANGE TO BUTTOCKS. AREA CLEANED WITH WOUND SPRAY, PATTED DRY AND MEPILEX APPIED. LIGHT BAUMANN DRAINAGE NOTED.
[2020-09-28 16:16] VITALS: BP 105/64
[2020-09-28 20:00] VITALS: BP 108/65
[2020-09-29] VITALS: BP 104/58
--- NOTE | 2020-09-29 01:18 | NUR ---
REC'D WALKING ROUNDS CHGE OF SHIFT.IN 1ST STEP BED.OFFICER AT BEDSIDE.BI-PAP ON HOB ELEVATED.STATES REFUSED SCD'S WEARING HEEL PROTECTORS.MEPELIX DRS TO BUTTOCKS. MCCONNELL PATENT AND DRAINING PASCUAL COLORED URINE. WILL CONTINUE TO MONITOR FOR ANY CHGES AND FOLLOW CURRENT PLAN OF CARE.
[2020-09-29 04:00] VITALS: BP 101/56
--- NOTE | 2020-09-29 06:32 | NUR ---
I have reviewed this patient and I concur with the Shift Assessment completed by the Licensed Practical Nurse today this shift.
[2020-09-29 07:12] LABS: ALBUMIN 2.2 g/dL (3.4-5.0); ALKALINE PHOSPHATASE 142 U/L (30-120); ALT (SGPT) 49 U/L (10-68); BASOPHILS 0.2 % (0-2); BILIRUBIN - TOTAL 0.36 mg/dL (0.2-1.3); CALC OSMOLALITY 280 mosm/kg (275-300); CALCIUM 8.7 mg/dL (8.5-10.1); CARBON DIOXIDE 27.7 mmol/L (21.0-32.0); CHLORIDE - SERUM 104 mmol/L (98-107); CREATININE - SERUM 0.5 mg/dL (0.6-1.3); EOSINOPHILS 0.3 % (0-7); HEMATOCRIT 30.2 % (42.0-54.0); HEMOGLOBIN 9.3 g/dL (13.5-17.5); IMMATURE GRANULOCYTES 1.6 % (0-5); LYMPHOCYTES 9.5 % (15-50); MCH 26.3 pg (26.0-34.0); MCHC 30.8 g/dL (31.0-37.0); MCV 85.6 fL (80.0-100.0); MEAN PLATELET VOLUME 9.6 fL (7.4-10.4); MONOCYTES 12.1 % (2-11); NEUTROPHIL ABS# 8.82 10x3/uL (1.78-5.38); NEUTROPHILS 76.3 % (40-80); PLATELET COUNT 230 10x3/uL (130-400); POTASSIUM - SERUM 4.1 mmol/L (3.5-5.1); PROTEIN - SERUM 6.6 g/dL (6.4-8.2); RBC 3.53 10x6/uL (4.20-6.10); RDW 21.6 % (11.5-14.5); SODIUM 137 mmol/L (136-145); UREA NITROGEN 11 mg/dL (7-18); URIC ACID 0.9 mg/dL (2.6-7.2); WBC 11.6 10x3/uL (4.8-10.8); eGFR NON AFRICAN AMERICAN > 90 mL/min (90-120)
[2020-09-29 07:15] LABS: GLUCOSE 238 mg/dL (74-106)
[2020-09-29 07:37] LABS: MAGNESIUM - SERUM 2.2 mg/dL (1.8-2.4); PHOSPHOROUS 4.9 mg/dL (2.5-4.9)
[2020-09-29 08:30] VITALS: BP 99/56
--- NOTE | 2020-09-29 08:50 | NUR ---
Nutrition follow-up: Chart and labs reviewed Diet order: Regular mechanical soft with thin liquids now; Ensure TID PO intake continues to be poor Started chemotherapy 09/28/20 RDN will monitor labs closely and make adjustments as needed. Will continue current TPN @ 60 ml/hr Follow-up: 09/30/20
--- NOTE | 2020-09-29 12:11 | NUR ---
UP TO CHAIR
--- NOTE | 2020-09-29 12:16 | NUR ---
ASSESSMENT PER FLOW SHEET. PATIENT IS WITHOUT DISTRESS.MONITOR FOR NEEDS.CALL LIGHT IN REACH.
[2020-09-29 13:16] VITALS: BP 103/61
--- NOTE | 2020-09-29 16:36 | MORECARE ---
CASE MANAGEMENT DISCHARGE SUMMARY PATIENT: JULIANN ANNE UNIT: [id number] ADM DATE: 08/17/20 AGE: 39 : 78 SEX: M ROOM/BED: D.2226 AUTHOR: JOSE RAFAEL,DOC PHYSICIAN: REFERRING PHYSICIAN: WHIT ALCANTARA MD DATE OF SERVICE: 09/29/20 Case Management Discharge Planning Summary COMMENTS ENTERED DATE: 09/29/20 16:32 CT COMMENT TYPE: Discharge Planning REVIEWER: Sena Heredia PATIENT FROM [facility] AND WILL TRANSPORT BACK TO THERE WITH [facility]URDS WHEN MEDICALLY STABLE. PATIENT TO START CHEMO NEXT MONDAY. DCP REVIEW SUMMARY ANTICIPATED D/C DATE: EXPECTED LOS : CASE STATUS: DCP Initiated INITIAL REVIEW: 09/29/2020 INITIAL REVIEWER: Sena Heredia FINAL DISCHARGE DISPOSITION: : FINAL REVIEWER: FINAL REVIEW DATE: DCP Focus Questions & Answers - Added on: QUESTION: ANSWER : PATIENT: JULIANN ANNE ENCOUNTER: [id number] MEDICAL RECORD#: [id number] ADMISSION DATE: 08/17/2020 DISCHARGE DATE: ATTENDING MD: WHIT PITT : AGE: 39 MARITAL STATUS: D DC PLAN ID: [id number] FACILITY: [facility] PRINTED ON: 09/29/20 16:36 CT All edits/amendments must be made on the electronic document DICTATION DATE: 09/29/201635 ZOO KEEPER: ОЛЬГА 09/29/201635 RPT#: [id number] DC DATE: STATUS: ADM IN [facility] [address] [place] [address] END OF REPORT
[2020-09-29 16:43] VITALS: BP 122/61
[2020-09-29 20:00] VITALS: BP 92/47
[2020-09-30 04:00] VITALS: BP 98/53
[2020-09-30 06:37] LABS: HEMATOCRIT 26.2 % (42.0-54.0); HEMOGLOBIN 7.9 g/dL (13.5-17.5); MCH 25.7 pg (26.0-34.0); MCHC 30.2 g/dL (31.0-37.0); MCV 85.3 fL (80.0-100.0); PLATELET COUNT 220 10x3/uL (130-400); RBC 3.07 10x6/uL (4.20-6.10); RDW 20.9 % (11.5-14.5); WBC 13.2 10x3/uL (4.8-10.8)
[2020-09-30 07:05] LABS: ALBUMIN 2.1 g/dL (3.4-5.0); ALKALINE PHOSPHATASE 131 U/L (30-120); ALT (SGPT) 44 U/L (10-68); BILIRUBIN - TOTAL 0.37 mg/dL (0.2-1.3); CALCIUM 8.8 mg/dL (8.5-10.1); CARBON DIOXIDE 28.2 mmol/L (21.0-32.0); CHLORIDE - SERUM 106 mmol/L (98-107); CREATININE - SERUM 0.6 mg/dL (0.6-1.3); POTASSIUM - SERUM 3.6 mmol/L (3.5-5.1); PROTEIN - SERUM 6.4 g/dL (6.4-8.2); SODIUM 140 mmol/L (136-145); UREA NITROGEN 12 mg/dL (7-18); URIC ACID 0.9 mg/dL (2.6-7.2); eGFR NON AFRICAN AMERICAN > 90 mL/min (90-120)
[2020-09-30 07:09] LABS: CALC OSMOLALITY 278 mosm/kg (275-300); GLUCOSE 103 mg/dL (74-106)
--- NOTE | 2020-09-30 07:24 | NUR ---
I have reviewed this patient and I concur with the Shift Assessment completed by the Licensed Practical Nurse today this shift.
[2020-09-30 07:50] LABS: MAGNESIUM - SERUM 2.2 mg/dL (1.8-2.4)
[2020-09-30 08:55] VITALS: BP 91/50
--- NOTE | 2020-09-30 12:28 | NUR ---
Nutrition reassessment: Pt scheduled for surgery in AM for sacral pressure wound debridement and diverting colostomy placed. TPN @ 60 ml/hr with 20% 250 ml intralipids q 48 hours NPO after Midnight PO intake continues to be poor of a regular diet Labs reviewed Wt: 208# Chemotherapy has been pushed back until next week. Nutrition diagnosis: Increased protein needs R/T sacral pressure wound AEB scheduled debridement and diverting colostomy placement. Nutrition goals: - PO intake increased to at least 75% of meals post-surgery - Meet at least 75% of estimated fluid needs - Stable dry wt +/-5# Interventions: Continue TPN @ 60 ml/hr; lipids Providin kcal, 72 gms protein Recommendations: PEG tube placement due to poor oral intake and the need for wound healing. Will reveiw with physician during IDT rounds; recommend increasing TPN to 80 ml/hr to increase protein intake. Follow-up: 09/30/20
[2020-09-30 12:47] VITALS: BP 95/63
[2020-09-30 13:14] LABS: LYMPHOCYTES 14 % (15-50); MONOCYTES 11 % (2-11); NEUTROPHILS 74 % (40-80); PLATELET ESTIMATE NORMAL
[2020-09-30 17:07] VITALS: BP 103/65
[2020-09-30 20:00] VITALS: BP 97/49
[2020-10-01] VITALS (22 sets, daily range): BP systolic 54–110; BP diastolic 37–72
--- NOTE | 2020-10-01 02:00 | NUR ---
DRESSINGS TO CHEST, ABDOMEN, AND CENTRAL LINE CHANGED. HUB CAPS REPLACED. SWAB CAPS IN USE, CPOC.
--- NOTE | 2020-10-01 05:49 | NUR ---
I have reviewed this patient and I concur with the Shift Assessment completed by the Licensed Practical Nurse today this shift.
[2020-10-01 06:55] LABS: BASOPHILS 0.4 % (0-2); EOSINOPHILS 0.4 % (0-7); HEMATOCRIT 29.2 % (42.0-54.0); IMMATURE GRANULOCYTES 1.8 % (0-5); LYMPHOCYTE ABS# 1.33 10x3/uL (1.32-3.57); LYMPHOCYTES 10.3 % (15-50); MCH 26.5 pg (26.0-34.0); MCHC 30.8 g/dL (31.0-37.0); MCV 85.9 fL (80.0-100.0); MEAN PLATELET VOLUME 8.7 fL (7.4-10.4); MONOCYTES 12.3 % (2-11); NEUTROPHIL ABS# 9.64 10x3/uL (1.78-5.38); NEUTROPHILS 74.8 % (40-80); PLATELET COUNT 185 10x3/uL (130-400); RDW 20.6 % (11.5-14.5); WBC 12.9 10x3/uL (4.8-10.8)
[2020-10-01 07:27] LABS: ALBUMIN 2.1 g/dL (3.4-5.0); ALKALINE PHOSPHATASE 128 U/L (30-120); ALT (SGPT) 38 U/L (10-68); BILIRUBIN - TOTAL 0.34 mg/dL (0.2-1.3); CALC OSMOLALITY 276 mosm/kg (275-300); CALCIUM 8.4 mg/dL (8.5-10.1); CHLORIDE - SERUM 106 mmol/L (98-107); CREATININE - SERUM 0.5 mg/dL (0.6-1.3); GLUCOSE 103 mg/dL (74-106); POTASSIUM - SERUM 3.5 mmol/L (3.5-5.1); PROTEIN - SERUM 6.6 g/dL (6.4-8.2); SODIUM 139 mmol/L (136-145); UREA NITROGEN 10 mg/dL (7-18); URIC ACID 0.8 mg/dL (2.6-7.2); eGFR NON AFRICAN AMERICAN > 90 mL/min (90-120)
--- NOTE | 2020-10-01 12:48 | NUR ---
Nutrition follow-up: Pt in surgery today NPO Labs, chart reviewed TPN continues @ 60 ml/hr; lipids 20% 250 ml Q 48 hours Will continue current TPN regimen today Recommendations: NGT vs PEG tube placement and TF started due to now with sacral wound; pt needs more protein. Also recommend increasing TPN to 80 ml/hr for now to increase protein intake to 96 gm/day with 1833 kcal/day. RDN follow-up: 10/02/20
[2020-10-01 17:41] LABS: HEMOGLOBIN 5.4 g/dL (13.5-17.5)
[2020-10-01 17:42] LABS: HEMATOCRIT 18.3 % (42.0-54.0)
--- NOTE | 2020-10-01 17:48 | NUR ---
REC' PT FROM FLOOR AFTER SACRAL WOUND DEBRIDEMENT. PT HYPOTENSIVE. ICU MONTIOR SUPPLIED. SREE CAICEDO APN AT BEDSIDE. NEW ORDERS REC' WILL CONT TO MONITOR PT.
--- NOTE | 2020-10-01 19:51 | NUR ---
DR. DUGAN PAGED REGARDING LOW BLOOD PRESSURE
--- NOTE | 2020-10-01 19:52 | NUR ---
DR. DUGAN RETURNED PAGE ORDERS GIVEN
[2020-10-02] VITALS (71 sets, daily range): BP systolic 93–138; BP diastolic 50–93
[2020-10-02 00:56] LABS: HEMATOCRIT 20.3 % (42.0-54.0)
[2020-10-02 01:07] LABS: HEMOGLOBIN 6.6 g/dL (13.5-17.5)
--- NOTE | 2020-10-02 01:20 | NUR ---
PAGED DR. DUGAN REGARDING CRITICAL LAB
--- NOTE | 2020-10-02 01:39 | NUR ---
PAGED SURGICAL STORY EDITOR THROUGH THEIR OFFICE DUE TO NO RETURN CALL FROM DR. DUGAN
--- NOTE | 2020-10-02 01:47 | NUR ---
DR. DUGAN CALLED BACK AND ORDERED TWO MORE UNITS OF BLOOD
[2020-10-02 04:55] LABS: BASOPHILS 0.4 % (0-2); EOSINOPHILS 0.2 % (0-7); HEMATOCRIT 22.6 % (42.0-54.0); IMMATURE GRANULOCYTES 4.2 % (0-5); LYMPHOCYTE ABS# 1.97 10x3/uL (1.32-3.57); LYMPHOCYTES 11.1 % (15-50); MCHC 31.4 g/dL (31.0-37.0); MCV 85.9 fL (80.0-100.0); MEAN PLATELET VOLUME 9.6 fL (7.4-10.4); MONOCYTES 8.7 % (2-11); NEUTROPHIL ABS# 13.41 10x3/uL (1.78-5.38); NEUTROPHILS 75.4 % (40-80); PLATELET COUNT 162 10x3/uL (130-400); RDW 16.5 % (11.5-14.5)
[2020-10-02 05:17] LABS: RBC 2.63 10x6/uL (4.20-6.10); WBC 17.8 10x3/uL (4.8-10.8)
[2020-10-02 05:25] LABS: ALKALINE PHOSPHATASE 80 U/L (30-120); BILIRUBIN - TOTAL 0.65 mg/dL (0.2-1.3); CARBON DIOXIDE 26.8 mmol/L (21.0-32.0); CHLORIDE - SERUM 109 mmol/L (98-107); CREATININE - SERUM 0.4 mg/dL (0.6-1.3); HEMOGLOBIN 7.1 g/dL (13.5-17.5); MAGNESIUM - SERUM 1.8 mg/dL (1.8-2.4); PROTEIN - SERUM 5.5 g/dL (6.4-8.2); SODIUM 144 mmol/L (136-145); UREA NITROGEN 12 mg/dL (7-18); URIC ACID 1.3 mg/dL (2.6-7.2); eGFR NON AFRICAN AMERICAN > 90 mL/min (90-120)
[2020-10-02 05:26] LABS: ALBUMIN 2.7 g/dL (3.4-5.0); ALT (SGPT) 25 U/L (10-68); CALC OSMOLALITY 289 mosm/kg (275-300); GLUCOSE 159 mg/dL (74-106)
--- NOTE | 2020-10-02 06:00 | NUR ---
I have reviewed this patient and I concur with the Shift Assessment completed by the Licensed Practical Nurse today this shift.
--- NOTE | 2020-10-02 07:40 | NUR ---
Nutrition follow-up: Chart and labs reviewed Pt now in ICU due to excessive bleeding post wound debridement Receiving blood Diet order: Clear liquids; seen by speech Recommend advancing diet to regular as tolerated with Ensure/Boost with meals Pt probably will not be able to eat enough to meet increased nutritional needs TPN rate now 80 ml/hr to better meet pts estimated kcal, protein needs Still recommend NGT vs PEG tube placment and TwoCal HN started @ 25 ml/hr with increase to goal rate of 60 ml/hr. RDN will follow-up: 10/03/20
[2020-10-02 09:06] LABS: HEMATOCRIT 25.9 % (42.0-54.0); HEMOGLOBIN 8.3 g/dL (13.5-17.5)
--- NOTE | 2020-10-02 10:59 | NUR ---
DR DUGAN AND DEBBIE IN THIS AM AND DISCUSSED CASE. ERIKA OF NEW LAB TOLD TO DR. LEWIS AND WILL NOT GIVE MORE BLOOD AT THIS TIME.
--- NOTE | 2020-10-02 16:43 | NUR ---
LEVOPHED TURNED OFF VITALS PERMITTED THIS.
--- NOTE | 2020-10-02 19:00 | NUR ---
BEDSIDE REPORT COMPLETED WITH OFF GOING NURSE. PT IS RESTING IN BED AT THIS TIME. NO S/S OF DISTRESS NOTED. WILL CONTINUE TO MONITOR.
[2020-10-03] VITALS (24 sets, daily range): BP systolic 87–107; BP diastolic 49–69
[2020-10-03 04:41] LABS: BASOPHILS 0.2 % (0-2); EOSINOPHILS 0.1 % (0-7); HEMATOCRIT 23.5 % (42.0-54.0); HEMOGLOBIN 7.7 g/dL (13.5-17.5); IMMATURE GRANULOCYTES 1.8 % (0-5); LYMPHOCYTE ABS# 1.28 10x3/uL (1.32-3.57); LYMPHOCYTES 8.4 % (15-50); MCH 27.8 pg (26.0-34.0); MCHC 32.8 g/dL (31.0-37.0); MCV 84.8 fL (80.0-100.0); MEAN PLATELET VOLUME 8.6 fL (7.4-10.4); NEUTROPHIL ABS# 11.77 10x3/uL (1.78-5.38); NEUTROPHILS 77.5 % (40-80); PLATELET COUNT 182 10x3/uL (130-400); RBC 2.77 10x6/uL (4.20-6.10); RDW 16.7 % (11.5-14.5); WBC 15.2 10x3/uL (4.8-10.8)
[2020-10-03 04:54] LABS: ALBUMIN 2.2 g/dL (3.4-5.0); ALKALINE PHOSPHATASE 88 U/L (30-120); ALT (SGPT) 26 U/L (10-68); BILIRUBIN - TOTAL 0.37 mg/dL (0.2-1.3); CALCIUM 8.1 mg/dL (8.5-10.1); CARBON DIOXIDE 28.6 mmol/L (21.0-32.0); CHLORIDE - SERUM 106 mmol/L (98-107); CREATININE - SERUM 0.4 mg/dL (0.6-1.3); MAGNESIUM - SERUM 1.7 mg/dL (1.8-2.4); PROTEIN - SERUM 5.5 g/dL (6.4-8.2); SODIUM 139 mmol/L (136-145); UREA NITROGEN 10 mg/dL (7-18); URIC ACID 0.8 mg/dL (2.6-7.2); eGFR NON AFRICAN AMERICAN > 90 mL/min (90-120)
[2020-10-03 04:55] LABS: CALC OSMOLALITY 277 mosm/kg (275-300); GLUCOSE 109 mg/dL (74-106); PHOSPHOROUS 2.2 mg/dL (2.5-4.9); POTASSIUM - SERUM 3.3 mmol/L (3.5-5.1)
--- NOTE | 2020-10-03 09:10 | NUR ---
Nutrition follow-up: Chart and labs reviewed TPN continues at 80 ml/hr with lipids q 48 hrs. K, PO4, Mg low today Recommend replacing with riders today. If they continue to be low, RDN will adjust TPN formuala. Will continue current TPN today and reassess 10/04/20
--- NOTE | 2020-10-03 18:03 | NUR ---
PT REFUSES TO BE TURNED. STATES HE IS HAVING NO PAIN AT THIS TIME AND IS COMFORTABLE.
[2020-10-04] VITALS (24 sets, daily range): BP systolic 91–116; BP diastolic 6–70
[2020-10-04 05:44] LABS: BASOPHILS 0.2 % (0-2); EOSINOPHILS 0.2 % (0-7); HEMATOCRIT 20.1 % (42.0-54.0); IMMATURE GRANULOCYTES 3.8 % (0-5); LYMPHOCYTE ABS# 1.58 10x3/uL (1.32-3.57); LYMPHOCYTES 11.1 % (15-50); MCHC 32.3 g/dL (31.0-37.0); MCV 86.6 fL (80.0-100.0); MEAN PLATELET VOLUME 8.9 fL (7.4-10.4); MONOCYTES 12.1 % (2-11); NEUTROPHILS 72.6 % (40-80); RBC 2.32 10x6/uL (4.20-6.10); RDW 17.2 % (11.5-14.5); WBC 14.2 10x3/uL (4.8-10.8)
[2020-10-04 05:45] LABS: HEMOGLOBIN 6.5 g/dL (13.5-17.5); PLATELET COUNT 234 10x3/uL (130-400)
[2020-10-04 05:55] LABS: ALKALINE PHOSPHATASE 92 U/L (30-120); ALT (SGPT) 22 U/L (10-68); BILIRUBIN - TOTAL 0.34 mg/dL (0.2-1.3); CALC OSMOLALITY 280 mosm/kg (275-300); CALCIUM 7.9 mg/dL (8.5-10.1); CARBON DIOXIDE 33.6 mmol/L (21.0-32.0); CHLORIDE - SERUM 104 mmol/L (98-107); CREATININE - SERUM 0.4 mg/dL (0.6-1.3); GLUCOSE 147 mg/dL (74-106); MAGNESIUM - SERUM 1.9 mg/dL (1.8-2.4); PHOSPHOROUS 2.7 mg/dL (2.5-4.9); POTASSIUM - SERUM 3.1 mmol/L (3.5-5.1); PROTEIN - SERUM 5.4 g/dL (6.4-8.2); SODIUM 140 mmol/L (136-145); UREA NITROGEN 9 mg/dL (7-18); eGFR NON AFRICAN AMERICAN > 90 mL/min (90-120)
--- NOTE | 2020-10-04 05:56 | NUR ---
HGB OF 6.5 ON AM LAB CALLED TO DR UMANZOR, ORDERS RECEIVED.
--- NOTE | 2020-10-04 08:23 | NUR ---
Nutrition follow-up: Chart and labs reviewed K still slightly low; Mg, PO4 WNL TPN continues @ 80 ml/hr Clear liquid diet order due to hypoactive BS post surgery Will continue current TPN today and reassess 10/05/20
--- NOTE | 2020-10-04 10:53 | NUR ---
0700 REPORT RECIEVED AND CARE ASSUMED OF PATIENT..SEE FLOW SHEET FOR SHIFT ASSESMENT FINDINGS.. 0850 FIRST UNIT OF PRBC HUNG PER ORDER.. KCL INFUSING.. FOR LOW POTASIUM LEVEL 0900 DR VINCENT IN TO SEE PATIENT.. HR IS 62 VERBAL ORDER TO HOLD AMIODERONE TODAY DUE TO LOW HR.. 1000 DR CHICAS IN TO SEE PATIENT.. 1015 DR UMANZOR IN TO SEE PATIENT. . UPDATE IS GIVEN...
--- NOTE | 2020-10-04 14:32 | NUR ---
1130 1ST UNIT PRBC THRU INFUSING AND 2ND UNIT HUNG.. LUNCH TRAY PRESENTED TO PATIENT.. JUICE AND TEA TAKEN.. 1230 PRBC CONTINUE TO INFUSE.. 1330 PARTIAL BATH WITH MCCONNELL CARE AND DRESSING CHANGE TO BUTTOCKS DONE.. 1430 2ND UNIT PRBC THRU INFUSING.. PATIENT SIGNED THE CONSENT FOR SACRAL WOUND EXPLORATION PER DR UMANZOR ORDER..
--- NOTE | 2020-10-04 17:27 | NUR ---
1720 PT REQUESTING BIPAP O2 ... PLACED BACK ON BY RT AT 30%
--- NOTE | 2020-10-04 19:57 | NUR ---
PT INCONTINENT OF SMALL AMT OF SOFT BROWN STOOL, WOUND CARE AND PERICARE PROVIDED, PT POSITIONED FOR COMFORT, HEMOSTATS X 2 REMAIN INTACT-NO BLEEDING NOTED. PT C/O NAUSEA-PRN ZOFRAN 4 MG ADMINISTERED PER MD ORDER VIA SIVP.
[2020-10-05] VITALS (13 sets, daily range): BP systolic 100–110; BP diastolic 61–74
[2020-10-05 06:06] LABS: BASOPHILS 0.4 % (0-2); EOSINOPHILS 0.2 % (0-7); IMMATURE GRANULOCYTES 4.9 % (0-5); LYMPHOCYTES 11.5 % (15-50); MCH 27.5 pg (26.0-34.0); MCHC 31.7 g/dL (31.0-37.0); MCV 86.8 fL (80.0-100.0); MEAN PLATELET VOLUME 9.1 fL (7.4-10.4); MONOCYTES 11.1 % (2-11); NEUTROPHIL ABS# 9.36 10x3/uL (1.78-5.38); NEUTROPHILS 71.9 % (40-80); PLATELET COUNT 242 10x3/uL (130-400); RDW 17.1 % (11.5-14.5)
[2020-10-05 06:31] LABS: ALBUMIN 2.1 g/dL (3.4-5.0); ALKALINE PHOSPHATASE 109 U/L (30-120); BILIRUBIN - TOTAL 0.48 mg/dL (0.2-1.3); CALC OSMOLALITY 274 mosm/kg (275-300); CARBON DIOXIDE 32.8 mmol/L (21.0-32.0); CHLORIDE - SERUM 102 mmol/L (98-107); CREATININE - SERUM 0.5 mg/dL (0.6-1.3); GLUCOSE 134 mg/dL (74-106); MAGNESIUM - SERUM 1.9 mg/dL (1.8-2.4); PHOSPHOROUS 2.7 mg/dL (2.5-4.9); POTASSIUM - SERUM 3.8 mmol/L (3.5-5.1); PROTEIN - SERUM 5.5 g/dL (6.4-8.2); SODIUM 137 mmol/L (136-145); UREA NITROGEN 9 mg/dL (7-18); eGFR NON AFRICAN AMERICAN > 90 mL/min (90-120)
[2020-10-05 06:32] LABS: ALT (SGPT) 30 U/L (10-68)
[2020-10-05 06:56] LABS: HEMATOCRIT 31.5 % (42.0-54.0); RBC 3.63 10x6/uL (4.20-6.10)
--- NOTE | 2020-10-05 07:00 | NUR ---
REPORT RECEIVED. ASSESSMENT COMPLETE PER FLOW SHEET. VSS.
--- NOTE | 2020-10-05 07:46 | NUR ---
Nutrition reassessement: Pt s/p wound debridement; diverting colostomy NPO for further surgery today PO intake continues to be poor; clear liquids since first surgery due to continued nausea; hyoactive BS TPN increased to 80 ml/hr with 20% 250 ml intralipids q 48 hours HT: 5'6" Current Wt: 221# AdjBW: 162# (73.5 kg) Labs reviewed Estimated nutritional needs based on AdjBW of 73.5 [id number] kcal (30-35 kcal/kg AdjBW) 74-103 gm protein (1.0-1.4 gm/kg AdhBW) 8128-6788 ml fluid; or per MD Goals: - Will meet at least 75% of estimated nutritional needs with oral intake and Nutrition support - Stable dry wt +/-5# - Glucose maintained at or near normal range Interventions: TPN at 80 ml/hr + lipids providin kcal (71-83% estimated kcal needs) 96 gms protein (93-130% estimated protein needs) Will continue current TPN today and reassess 10/06/20 Recommend starting TF via NGT vs PEG tube placement to better meet pts increased nutritional needs.
--- NOTE | 2020-10-05 12:15 | NUR ---
DR DUGAN AT BEDSIDE GIVEN UPDATE.
--- NOTE | 2020-10-05 17:59 | NUR ---
RECEIVED PATIENT FROM ICU, C.O. 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 NO NEEDS VOICED, CONTINUE WITH PLAN OF CARE
[2020-10-06] VITALS: BP 102/62
[2020-10-06 04:00] VITALS: BP 113/70
--- NOTE | 2020-10-06 04:16 | NUR ---
JACKY BLOOD FROM CENTRAL LINE FOR AM LABS.
--- NOTE | 2020-10-06 04:18 | NUR ---
NO OUTPUT FROM COLOSTOMY THIS SHIFT...SO UNABLE TO COLLECT STOOL FOR ORDERED LABS.
[2020-10-06 06:34] LABS: HEMATOCRIT 33.9 % (42.0-54.0); HEMOGLOBIN 10.5 g/dL (13.5-17.5); LYMPHOCYTE ABS# 1.57 10x3/uL (1.32-3.57); MCH 27.7 pg (26.0-34.0); MEAN PLATELET VOLUME 9.4 fL (7.4-10.4); NEUTROPHIL ABS# 9.95 10x3/uL (1.78-5.38); PLATELET COUNT 276 10x3/uL (130-400); RBC 3.79 10x6/uL (4.20-6.10); RDW 17.4 % (11.5-14.5); WBC 14.4 10x3/uL (4.8-10.8)
[2020-10-06 06:35] LABS: MCV 89.4 fL (80.0-100.0)
[2020-10-06 06:49] LABS: ALBUMIN 2.2 g/dL (3.4-5.0); ALKALINE PHOSPHATASE 125 U/L (30-120); ALT (SGPT) 36 U/L (10-68); BILIRUBIN - TOTAL 0.45 mg/dL (0.2-1.3); CALC OSMOLALITY 273 mosm/kg (275-300); CALCIUM 8.5 mg/dL (8.5-10.1); CARBON DIOXIDE 29.6 mmol/L (21.0-32.0); CHLORIDE - SERUM 103 mmol/L (98-107); CREATININE - SERUM 0.5 mg/dL (0.6-1.3); MAGNESIUM - SERUM 2.2 mg/dL (1.8-2.4); POTASSIUM - SERUM 4.3 mmol/L (3.5-5.1); PROTEIN - SERUM 5.9 g/dL (6.4-8.2); SODIUM 138 mmol/L (136-145); UREA NITROGEN 10 mg/dL (7-18); URIC ACID 0.7 mg/dL (2.6-7.2); eGFR NON AFRICAN AMERICAN > 90 mL/min (90-120)
[2020-10-06 06:50] LABS: GLUCOSE 83 mg/dL (74-106); PHOSPHOROUS 3.9 mg/dL (2.5-4.9)
--- NOTE | 2020-10-06 07:27 | NUR ---
PATIENT AWAKE LAYING IN BED, C/O AT BEDSIDE, NO S/S OF DISTRESS, NO NEEDS AT THIS TIME, ASSUME PATIENT CARE. CALL LIGHT IN REACH
--- NOTE | 2020-10-06 07:29 | NUR ---
I have reviewed this patient and I concur with the Shift Assessment completed by the Licensed Practical Nurse today this shift.
--- NOTE | 2020-10-06 07:30 | NUR ---
Nutrition follow-up: Pt just out of ICU POD #5; wound debridement, diverting colostomy Diet advanced to regular as tolerated TPN continues @ 80 ml/hr with lipids q 48 hours Labs reviewed Will continue current TPN formula and reassess labs 10/07/20 RDN will order Ensure with meals
--- NOTE | 2020-10-06 09:22 | NUR ---
WOKE PATIENT UP TO EAT BREAKFAST AND TAKE MEDICATIONS, PATIENT STATED " I DON'T WANT THE STUF TO MAKE ME POOP" PATIETN DECLINED COLACE WELL MIRALAX, PATIENT THEN TOLD DR VINCENT RT DID NOT COME AND TAKE HIM OFF BIPAP EARLY, PER DR VINCENT MAKE SURE RT KNOWS TO TAKE PT OFF EARLY AND ONLY ON BIPAP AT NIGHT. NOOTHER NEEDS AT THIS TIME. CONTINUE WITH PLAN OF CARE
[2020-10-06 09:55] VITALS: BP 99/65
[2020-10-06 10:08] LABS: ANISOCYTOSIS OCC; EOSINOPHILS 1 % (0-7); LYMPHOCYTES 6 % (15-50); MONOCYTES 17 % (2-11); NEUTROPHILS 70 % (40-80); PLATELET ESTIMATE NORMAL; POLYCHROMASIA OCC
--- NOTE | 2020-10-06 10:17 | NUR ---
PATIENT REQUESTED 2 MORE SODAS, PATIENT HAS 6 SODAS ON BEDSIDE TABLE, NOT DRINKLING MUCH OF ANYTHING ELSE, ENCOURAGED PATIENT TO DRINK WATER AND ENSURE BROUGHT ON TRAYS WILL LIMIT PT SODA INTAKE. CONTINUE WITH PLAN OF CARE
[2020-10-06 12:06] VITALS: BP 84/58
--- NOTE | 2020-10-06 13:07 | NUR ---
PATIENT IS VERY SLEEPY TODAY, BP IS ON THE LOW SIDE, HR 66 O2 AT 94-96% ON 4L, EASILY AWAKENED, CONTINUE WITH PLAN OF CARE
--- NOTE | 2020-10-06 15:09 | MORECARE ---
CASE MANAGEMENT DISCHARGE SUMMARY PATIENT: JULIANN ANNE UNIT: [id number] ADM DATE: 08/17/20 AGE: 39 : 78 SEX: M ROOM/BED: D.2240 AUTHOR: JOSE RAFAEL,DOC PHYSICIAN: REFERRING PHYSICIAN: WHIT ALCANTARA MD DATE OF SERVICE: 10/06/20 Case Management Discharge Planning Summary CT Patient Name: JULIANN ANNE Attending MD : WHIT PULLIAM Medical Record: [id number] Encounter : [id number] Facility : [id number] [facility] Medical Admission Date : 118:24 Center Discharge Date : [address] [place] [address] Date of : DC Plan ID : [id number] Age/Sex/Martia : 39/ M/D Printed on : 10/06/20 15:07 CT DCP Review Details Anticipated D/C: Expected LOS : Case Status : INITIATED - Initial Reviewe: [id number] - Sena Heredia Initial Review: 09/29/2020 Planned Disposi: - Final Discharge: - Final Reviewer : : Final Review : Comments CT Entered Date Type Reviewer 09/29/20 16:32 CT Discharge Planning Sena Heredia Comment PATIENT FROM [facility] AND WILL TRANSPORT BACK TO THERE WITH GAURDS WHEN MEDICALLY STABLE. PATIENT TO START CHEMO NEXT MONDAY. DCP Focus Questions & Answers [facility] JULIANN ANNE MR#: [id number] /Age/Sex/[id number]-Mpr-15 /39/M /D Attending Physician Name: WHIT ALCANTARA [id number] [id number] [facility] All edits/amendments must be made on the electronic document DICTATION DATE: 10/06/20 1507 RESISTANCE MACHINE WELDER SETTER: DM 10/06/20 1507 RPT#: [id number] DC DATE: STATUS: ADM IN [facility] [address] [place] [address] END OF REPORT
--- NOTE | 2020-10-06 16:04 | NUR ---
CHANGED PATIENT DRESSING ON SACRAL AREA, WET TO DRY PER ORDERS, PATIENT TOLERATED WELL, C/O AT BEDSIDE, CONTINUE WITH PLAN OF CARE
[2020-10-06 17:28] VITALS: BP 100/63
--- NOTE | 2020-10-06 19:45 | NUR ---
RECEIVED BEDSIDE REPORT. PT LAYING IN BED A&O X4. CVL TO RIGHT SUBCLAV, PATENT AND INFUSING. INCISION TO ABD, DRSG C/D/I. COLOSTOMY TO LLQ, STOOL PRESENT, SOFT AND BROWN. WOUND TO BUTTOCKS, WET TO DRY DRSG C/D/I. CONTACT ISOLATION PRECAUTIONS IN PLACE. MCCONNELL IN PLACE, DRAINING TO GRAVITY, STATLOCK IN PLACE. ROLAND AT BS. EDUCATED PT ON CL AND NEEDS, VERBALIZED UNDERSTANDING. BED LOW, CL IN REACH.
[2020-10-06 20:00] VITALS: BP 96/54
[2020-10-07] VITALS: BP 115/71
[2020-10-07 04:00] VITALS: BP 96/62
[2020-10-07 06:49] LABS: BASOPHILS 0.6 % (0-2); EOSINOPHILS 1.6 % (0-7); HEMATOCRIT 34.1 % (42.0-54.0); HEMOGLOBIN 10.5 g/dL (13.5-17.5); IMMATURE GRANULOCYTES 6.1 % (0-5); LYMPHOCYTE ABS# 1.08 10x3/uL (1.32-3.57); LYMPHOCYTES 7.6 % (15-50); MCH 27.9 pg (26.0-34.0); MCHC 30.8 g/dL (31.0-37.0); MCV 90.7 fL (80.0-100.0); MEAN PLATELET VOLUME 9.5 fL (7.4-10.4); MONOCYTES 9.9 % (2-11); NEUTROPHIL ABS# 10.61 10x3/uL (1.78-5.38); NEUTROPHILS 74.2 % (40-80); PLATELET COUNT 275 10x3/uL (130-400); RBC 3.76 10x6/uL (4.20-6.10); RDW 17.4 % (11.5-14.5); WBC 14.3 10x3/uL (4.8-10.8)
[2020-10-07 07:34] LABS: ALKALINE PHOSPHATASE 126 U/L (30-120); ALT (SGPT) 48 U/L (10-68); BILIRUBIN - TOTAL 0.36 mg/dL (0.2-1.3); CALC OSMOLALITY 278 mosm/kg (275-300); CALCIUM 8.3 mg/dL (8.5-10.1); CARBON DIOXIDE 29.7 mmol/L (21.0-32.0); CHLORIDE - SERUM 107 mmol/L (98-107); CREATININE - SERUM 0.5 mg/dL (0.6-1.3); GLUCOSE 108 mg/dL (74-106); MAGNESIUM - SERUM 2.2 mg/dL (1.8-2.4); PHOSPHOROUS 4.2 mg/dL (2.5-4.9); POTASSIUM - SERUM 3.6 mmol/L (3.5-5.1); PROTEIN - SERUM 6.2 g/dL (6.4-8.2); SODIUM 140 mmol/L (136-145); UREA NITROGEN 11 mg/dL (7-18); eGFR NON AFRICAN AMERICAN > 90 mL/min (90-120)
--- NOTE | 2020-10-07 08:14 | NUR ---
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
--- NOTE | 2020-10-07 08:26 | NUR ---
PATIENT STILL ON BIPAP, SPOKE TO ROWENA WITH RT AND TOLD HER THAT PATIENT COMPLAINED THAT NO ONE TOOK HIM OFF HIS BIPAP EARLY, RT STATED PATIENT IS ASLEEP AND DID NOT WANT TO COME OFF BIPAP, EXPLAINED THAT HE DID THE SAME THING YESTERDAY AND THAT WHEN I PASS MEDICATIONS I WILL TAKE HIOM OFF BIPAP AT THAT TIME. GUARD AT BEDSIDE, NO NEEDS AT THIS TIME. CONTINUE WITH PLAN OF CARE
[2020-10-07 08:38] VITALS: BP 109/66
--- NOTE | 2020-10-07 10:13 | NUR ---
PATIENT REQUESTED TO KNOW WHAT HIS MORNING MEDICATIONS WERE, WENT OVER LIST WITH HIM, PT STATED HE TOOK AN ORANGE PILL LAST NIGHT THAT MADE HIM SICK, TOLD PATIENT ONLY ORANGE PILL I SEE THAT HE COULD BE TAKING THAT WAS ORANGE WAS MOST LIKELY THE ALLOPURINOL. CO AT BEDSIDE, NO OTHER NEEDS AT THIS TIME. CONTINUE WITH PLAN OF CARE
--- NOTE | 2020-10-07 12:27 | NUR ---
CARE ASSUMED FROM WANDER VILLARREAL. SITTING UP IN BED, GUARD AT BEDSIDE.
[2020-10-07 13:20] VITALS: BP 109/58
--- NOTE | 2020-10-07 16:00 | NUR ---
FULL BED BATH GIVEN AND DRSG CHANGED TO STAGE 4 ULCER TO COCCYX. WET 4X4S USED AND COVERED WITH DRY 4X4S. SECURED WITH ABD PAD AND PAPER TAPE.
[2020-10-07 16:28] VITALS: BP 98/61
[2020-10-07 20:00] VITALS: BP 102/50
[2020-10-08 04:00] VITALS: BP 107/53
[2020-10-08 06:14] LABS: BASOPHILS 0.2 % (0-2); EOSINOPHILS 1.8 % (0-7); HEMATOCRIT 33.3 % (42.0-54.0); HEMOGLOBIN 10.2 g/dL (13.5-17.5); LYMPHOCYTE ABS# 1.18 10x3/uL (1.32-3.57); LYMPHOCYTES 9.7 % (15-50); MCH 28.3 pg (26.0-34.0); MCHC 30.6 g/dL (31.0-37.0); MCV 92.2 fL (80.0-100.0); MEAN PLATELET VOLUME 9.9 fL (7.4-10.4); MONOCYTES 11.4 % (2-11); NEUTROPHIL ABS# 8.61 10x3/uL (1.78-5.38); NEUTROPHILS 70.9 % (40-80); PLATELET COUNT 285 10x3/uL (130-400); RBC 3.61 10x6/uL (4.20-6.10); RDW 17.2 % (11.5-14.5); WBC 12.2 10x3/uL (4.8-10.8)
[2020-10-08 06:37] LABS: ALBUMIN 2.1 g/dL (3.4-5.0); ALKALINE PHOSPHATASE 135 U/L (30-120); ALT (SGPT) 56 U/L (10-68); CALC OSMOLALITY 276 mosm/kg (275-300); CALCIUM 8.2 mg/dL (8.5-10.1); CARBON DIOXIDE 28.7 mmol/L (21.0-32.0); CHLORIDE - SERUM 104 mmol/L (98-107); CREATININE - SERUM 0.5 mg/dL (0.6-1.3); GLUCOSE 106 mg/dL (74-106); MAGNESIUM - SERUM 2.1 mg/dL (1.8-2.4); PHOSPHOROUS 3.6 mg/dL (2.5-4.9); POTASSIUM - SERUM 3.5 mmol/L (3.5-5.1); PROTEIN - SERUM 6.3 g/dL (6.4-8.2); SODIUM 139 mmol/L (136-145); UREA NITROGEN 9 mg/dL (7-18); URIC ACID 1.1 mg/dL (2.6-7.2); eGFR NON AFRICAN AMERICAN > 90 mL/min (90-120)
--- NOTE | 2020-10-08 07:09 | NUR ---
Nutrition follow-up: Chart and labs reviewed TPN continues @ 80 ml/hr; lipids q 48 hrs Will continue current TPN today; reassess 10/09/20
--- NOTE | 2020-10-08 07:30 | NUR ---
PT SITTING UP IN BED WITH EYES OPEN, ALERT AND ORIENTED, GUARD AT THE BEDSIDE. RIGHT CVL PRESENT CURRENTLY RUNNING NS @ 30ML, AND TPN @ 80ML/HR. LEFT SIDE COLOSTOMY PRESENT, CHRONIC MCCONNELL PRESENT. CURRENTLY RCVING 2L VIA NC. NO CURRENT S/S OF DISTRESS AT THIS TIME, DENIES CURRENT NEEDS, WILL CONT TO MONITOR.
[2020-10-08 08:21] VITALS: BP 106/65
[2020-10-08 12:42] VITALS: BP 107/71
[2020-10-08 17:39] VITALS: BP 103/65
--- NOTE | 2020-10-08 19:45 | NUR ---
RECEIVED BEDSIDE REPORT. PT LAYING IN BED A&O X4. CVL TO RIGHT SUBCLAV. PATENT AND INFUSING. 02 SAT 96% ON 4L VIA HFNC. INCISION TO CHEST, DRSG C/D/I. LLQ COLOSTOMY. WOUND TO COCCYX, 11 X 11 X 3CM DEEP, DRSG C/D/I. PT IS BEDFAST, TOTAL CARE. GAURD AT BEDSIDE. EDUCATED PT ON CL AND NEEDS, VERBALIZED UNDERSTANDING. BED LOW, CL IN REACH.
[2020-10-08 20:00] VITALS: BP 102/66
--- NOTE | 2020-10-09 03:08 | NUR ---
BATHED PT, CHANGED DRSG TO COCCYX WET TO DRY DRSG, APPLIED GAUZE, ABD PAD AND MEDAPORE TAPE. PT TOLERATED WELL, BED LOW, CL IN REACH.
[2020-10-09 04:00] VITALS: BP 111/51
[2020-10-09 05:42] LABS: BASOPHILS 0.3 % (0-2); EOSINOPHILS 0.9 % (0-7); HEMATOCRIT 36.2 % (42.0-54.0); HEMOGLOBIN 11.1 g/dL (13.5-17.5); IMMATURE GRANULOCYTES 2.7 % (0-5); LYMPHOCYTE ABS# 1.45 10x3/uL (1.32-3.57); LYMPHOCYTES 9.1 % (15-50); MCH 28.1 pg (26.0-34.0); MCHC 30.7 g/dL (31.0-37.0); MCV 91.6 fL (80.0-100.0); MEAN PLATELET VOLUME 9.6 fL (7.4-10.4); MONOCYTES 9.8 % (2-11); NEUTROPHIL ABS# 12.35 10x3/uL (1.78-5.38); NEUTROPHILS 77.2 % (40-80); PLATELET COUNT 327 10x3/uL (130-400); RBC 3.95 10x6/uL (4.20-6.10); RDW 16.9 % (11.5-14.5)
[2020-10-09 06:00] LABS: ALBUMIN 2.3 g/dL (3.4-5.0); ALKALINE PHOSPHATASE 155 U/L (30-120); BILIRUBIN - TOTAL 0.35 mg/dL (0.2-1.3); CALC OSMOLALITY 277 mosm/kg (275-300); CALCIUM 8.6 mg/dL (8.5-10.1); CARBON DIOXIDE 27.7 mmol/L (21.0-32.0); CHLORIDE - SERUM 105 mmol/L (98-107); CREATININE - SERUM 0.5 mg/dL (0.6-1.3); GLUCOSE 117 mg/dL (74-106); MAGNESIUM - SERUM 2.3 mg/dL (1.8-2.4); PHOSPHOROUS 3.5 mg/dL (2.5-4.9); POTASSIUM - SERUM 3.6 mmol/L (3.5-5.1); PROTEIN - SERUM 6.9 g/dL (6.4-8.2); SODIUM 139 mmol/L (136-145); UREA NITROGEN 9 mg/dL (7-18); eGFR NON AFRICAN AMERICAN > 90 mL/min (90-120)
[2020-10-09 06:05] LABS: ALT (SGPT) 78 U/L (10-68)
--- NOTE | 2020-10-09 07:30 | NUR ---
Nutrition follow-up: Chart and labs reviewed Diet order: Regular Providing pt with food choices, honoring food preferences, supplements, fortified foods PO intake ~25% of meals TPN continues @ 80 ml/hr with lipids q 48 hours Will continue current TPN formula and re-evaluate 10/10/20
[2020-10-09 08:02] VITALS: BP 99/66
[2020-10-09 14:10] VITALS: BP 99/62
[2020-10-09 16:57] VITALS: BP 105/68
[2020-10-09 20:40] VITALS: BP 106/66
--- NOTE | 2020-10-09 21:00 | NUR ---
WATCHING TV WITHOUT COMPLAITNS VOICED. RESP UNALBORED. NO DISTRESS NOTED. IV INFUSING TO RIGHT PORT WITHOUT REDNESS OR EDEMA NOTED. CL IN REACH. VANESSAD AT BEDSIDE.
[2020-10-10 05:31] VITALS: BP 113/72
[2020-10-10 06:55] LABS: BASOPHILS 0.3 % (0-2); EOSINOPHILS 1.2 % (0-7); HEMATOCRIT 36.1 % (42.0-54.0); IMMATURE GRANULOCYTES 2.4 % (0-5); LYMPHOCYTE ABS# 1.44 10x3/uL (1.32-3.57); LYMPHOCYTES 10.3 % (15-50); MCH 28.2 pg (26.0-34.0); MCHC 30.5 g/dL (31.0-37.0); MCV 92.6 fL (80.0-100.0); MEAN PLATELET VOLUME 9.4 fL (7.4-10.4); MONOCYTES 8.6 % (2-11); NEUTROPHIL ABS# 10.75 10x3/uL (1.78-5.38); NEUTROPHILS 77.2 % (40-80); PLATELET COUNT 286 10x3/uL (130-400); RDW 16.9 % (11.5-14.5); WBC 13.9 10x3/uL (4.8-10.8)
[2020-10-10 07:22] LABS: ALBUMIN 2.3 g/dL (3.4-5.0); ALKALINE PHOSPHATASE 150 U/L (30-120); ALT (SGPT) 73 U/L (10-68); BILIRUBIN - TOTAL 0.28 mg/dL (0.2-1.3); CALC OSMOLALITY 279 mosm/kg (275-300); CALCIUM 8.3 mg/dL (8.5-10.1); CARBON DIOXIDE 27.6 mmol/L (21.0-32.0); CHLORIDE - SERUM 107 mmol/L (98-107); CREATININE - SERUM 0.5 mg/dL (0.6-1.3); GLUCOSE 143 mg/dL (74-106); MAGNESIUM - SERUM 1.5 mg/dL (1.8-2.4); POTASSIUM - SERUM 3.7 mmol/L (3.5-5.1); PROTEIN - SERUM 6.2 g/dL (6.4-8.2); SODIUM 140 mmol/L (136-145); UREA NITROGEN 11 mg/dL (7-18); eGFR NON AFRICAN AMERICAN > 90 mL/min (90-120)
[2020-10-10 08:07] VITALS: BP 111/75
--- NOTE | 2020-10-10 08:41 | NUR ---
Nutrition follow-up: Chart and labs reviewed TPN @ 80 ml/hr with lipids q 48 hours Diet order: regular with supplements and fortified foods PO intake ~25% of meals Mg low; recommend Mg rider to address Will contiinue TPN as ordered today and reassess 10/11/20
--- NOTE | 2020-10-10 09:41 | NUR ---
PT LAYING IN BED RESTING WITH EYES CLOSED, AROUSE TO VOICE, SITTING UP NOW TO EAT BREAKFAST, GAURD AT BEDSIDE
[2020-10-10 12:10] VITALS: BP 120/79
[2020-10-10 16:59] VITALS: BP 104/72
--- NOTE | 2020-10-10 19:19 | NUR ---
PATIENT RESTING IN BED WITH NO S/S OF DISTRESS. GUARD AT BEDSIDE. BROUGHT PATIENT A DRINK AND ICE PER HIS REQUEST. PATIENT DENIES OTHER NEEDS. ENCOURAGED TO CALL WITH NEEDS.
[2020-10-10 20:00] VITALS: BP 113/69
--- NOTE | 2020-10-10 20:55 | NUR ---
ADMINISTERED MEDS PER ORDERS. PATIENT MARS WELL. ENCOURAGED TO CALL WITH NEEDS.
[2020-10-11] VITALS: BP 98/65
[2020-10-11 04:00] VITALS: BP 93/63
[2020-10-11 06:45] LABS: ALBUMIN 2.1 g/dL (3.4-5.0); ALKALINE PHOSPHATASE 130 U/L (30-120); ALT (SGPT) 66 U/L (10-68); BILIRUBIN - TOTAL 0.28 mg/dL (0.2-1.3); CALC OSMOLALITY 276 mosm/kg (275-300); CALCIUM 8.4 mg/dL (8.5-10.1); CARBON DIOXIDE 28.5 mmol/L (21.0-32.0); CHLORIDE - SERUM 106 mmol/L (98-107); CREATININE - SERUM 0.5 mg/dL (0.6-1.3); POTASSIUM - SERUM 3.7 mmol/L (3.5-5.1); PROTEIN - SERUM 6.4 g/dL (6.4-8.2); SODIUM 140 mmol/L (136-145); UREA NITROGEN 10 mg/dL (7-18); eGFR NON AFRICAN AMERICAN > 90 mL/min (90-120)
[2020-10-11 06:49] LABS: GLUCOSE 86 mg/dL (74-106); MAGNESIUM - SERUM 2.1 mg/dL (1.8-2.4)
[2020-10-11 08:04] VITALS: BP 98/63
[2020-10-11 08:07] LABS: BASOPHILS 0.2 % (0-2); EOSINOPHILS 1.7 % (0-7); HEMATOCRIT 33.9 % (42.0-54.0); HEMOGLOBIN 10.3 g/dL (13.5-17.5); IMMATURE GRANULOCYTES 1.7 % (0-5); LYMPHOCYTE ABS# 1.17 10x3/uL (1.32-3.57); LYMPHOCYTES 9.7 % (15-50); MCHC 30.4 g/dL (31.0-37.0); MCV 92.1 fL (80.0-100.0); MEAN PLATELET VOLUME 9.5 fL (7.4-10.4); MONOCYTES 9.8 % (2-11); NEUTROPHILS 76.9 % (40-80); PLATELET COUNT 235 10x3/uL (130-400); RBC 3.68 10x6/uL (4.20-6.10); WBC 12.1 10x3/uL (4.8-10.8)
--- NOTE | 2020-10-11 08:37 | NUR ---
Nutrition follow-up: Chart and labs reviewed Will continue current TPN @ 80 ml/hr and reassess 10/12/20.
[2020-10-11 11:35] VITALS: BP 103/66
[2020-10-11 16:00] VITALS: BP 102/64
[2020-10-11 20:00] VITALS: BP 102/61
--- NOTE | 2020-10-11 20:30 | NUR ---
AWAKE,ALERT.NO COMPLAINTS VOICED. RESP EVEN AND UNLABORED.NO DISTRESS NOTED. CL IN REACH
[2020-10-12] VITALS: BP 107/66
[2020-10-12 04:00] VITALS: BP 106/70
[2020-10-12 06:30] LABS: BASOPHILS 0.4 % (0-2); EOSINOPHILS 2.2 % (0-7); HEMOGLOBIN 9.9 g/dL (13.5-17.5); IMMATURE GRANULOCYTES 1.5 % (0-5); LYMPHOCYTE ABS# 1.08 10x3/uL (1.32-3.57); LYMPHOCYTES 9.8 % (15-50); MCH 28.1 pg (26.0-34.0); MCHC 30.9 g/dL (31.0-37.0); MCV 90.9 fL (80.0-100.0); MEAN PLATELET VOLUME 9.5 fL (7.4-10.4); MONOCYTES 9.5 % (2-11); NEUTROPHIL ABS# 8.46 10x3/uL (1.78-5.38); NEUTROPHILS 76.6 % (40-80); PLATELET COUNT 248 10x3/uL (130-400); RBC 3.52 10x6/uL (4.20-6.10); RDW 17.1 % (11.5-14.5)
[2020-10-12 06:53] LABS: ALBUMIN 2.2 g/dL (3.4-5.0); ALKALINE PHOSPHATASE 135 U/L (30-120); ALT (SGPT) 75 U/L (10-68); BILIRUBIN - TOTAL 0.16 mg/dL (0.2-1.3); CALC OSMOLALITY 277 mosm/kg (275-300); CALCIUM 8.7 mg/dL (8.5-10.1); CARBON DIOXIDE 28.6 mmol/L (21.0-32.0); CHLORIDE - SERUM 106 mmol/L (98-107); CREATININE - SERUM 0.5 mg/dL (0.6-1.3); GLUCOSE 112 mg/dL (74-106); POTASSIUM - SERUM 3.7 mmol/L (3.5-5.1); PROTEIN - SERUM 6.4 g/dL (6.4-8.2); SODIUM 139 mmol/L (136-145); UREA NITROGEN 11 mg/dL (7-18); eGFR NON AFRICAN AMERICAN > 90 mL/min (90-120)
--- NOTE | 2020-10-12 07:40 | NUR ---
IN BED, BED LOW POSITION, CALL LIGHT IN REACH. DENIES NEEDS AT THIS TIME. GUARD AT BEDSIDE. WILL CONTINUE TO MONITOR.
[2020-10-12 07:55] LABS: MAGNESIUM - SERUM 2.2 mg/dL (1.8-2.4); PHOSPHOROUS 4.6 mg/dL (2.5-4.9)
--- NOTE | 2020-10-12 08:00 | NUR ---
Nutrition follow-up/reassessment: Chart and labs reviewed Diet order: Regular as tolerated with Ensure TID; fortified foods with meals Wt: 215# PO intake only ~10% of meals TPN continues @ 80 ml/hr with lipids q 48 hours Estimated energy needs remain the same as 10/05/20: 4879-2531 kcal, 74-103 gm protein, 1623-8885 ml H2O Nutrition diagnosis: Inadequate oral intake R/T high dextrose infusion from TPN causing anorexia AEB pts po intake continues to be > 25% of meals on average. Goals: - Decrease TPN to reduce glucose infusion - PEG tube placement for continued wound healing if medically feasible - PO intake will increase go =/> 75% of meals, snacks - Stable dry wt +/-5# Interventions: Will continue with TPN @ 80 ml/hr without formula change Will continue to provide food choices and honor food preferences; encourage increased po intake. Follow-up: 10/13/20
[2020-10-12 09:36] VITALS: BP 111/67
--- NOTE | 2020-10-12 12:21 | NUR ---
DRESSING TO COCCYX CHANGED PER ORDERS. NO SIGNS OF INFECTION AT THIS TIME. WILL CONTINUE TO MONITOR.
[2020-10-12 12:29] VITALS: BP 119/75
[2020-10-12 16:18] VITALS: BP 102/69
--- NOTE | 2020-10-12 18:31 | NUR ---
CHANGED COLOSTOMY BAG AND BASE. STOMA RED AND MOIST. NO SIGNS OF INFECTION. PATIENT TOLLERATED WELL.
--- NOTE | 2020-10-12 19:45 | NUR ---
RECEIVED BEDSIDE REPORT. PT LAYING IN BED, A&O X4. CVL TO RIGHT SUBCLAV, PATENT AND INFUSING. DRSG TO COCCYX, DECUBITUS WOUND 11 X 11 X 3CM DEEP, C/D/I. COLOSTOMY TO LLQ. MCCONNELL IN PLACE, DRAINING TO GRAVITY, STATLOCK IN PLACE. ISOLATION PRECAUTIONS IN PLACE. GAURD AT BEDSIDE. EDUCATED PT ON CL AND NEEDS, VERBALIZED UNDERSTANDING. BED LOW, CL IN REACH.
[2020-10-12 20:00] VITALS: BP 112/65
[2020-10-13] VITALS: BP 96/43
[2020-10-13 06:32] LABS: BASOPHILS 0.1 % (0-2); EOSINOPHILS 1.9 % (0-7); HEMATOCRIT 38.2 % (42.0-54.0); IMMATURE GRANULOCYTES 1.5 % (0-5); LYMPHOCYTE ABS# 0.89 10x3/uL (1.32-3.57); MCH 27.8 pg (26.0-34.0); MCHC 31.2 g/dL (31.0-37.0); MCV 89.3 fL (80.0-100.0); MEAN PLATELET VOLUME 9.5 fL (7.4-10.4); MONOCYTES 9.7 % (2-11); NEUTROPHIL ABS# 5.55 10x3/uL (1.78-5.38); NEUTROPHILS 74.8 % (40-80); PLATELET COUNT 200 10x3/uL (130-400); RDW 16.9 % (11.5-14.5)
[2020-10-13 06:39] LABS: HEMOGLOBIN 11.9 g/dL (13.5-17.5); RBC 4.28 10x6/uL (4.20-6.10); WBC 7.4 10x3/uL (4.8-10.8)
[2020-10-13 06:47] LABS: ALBUMIN 2.1 g/dL (3.4-5.0); ALKALINE PHOSPHATASE 131 U/L (30-120); ALT (SGPT) 64 U/L (10-68); BILIRUBIN - TOTAL 0.34 mg/dL (0.2-1.3); CALC OSMOLALITY 276 mosm/kg (275-300); CALCIUM 8.5 mg/dL (8.5-10.1); CARBON DIOXIDE 29.1 mmol/L (21.0-32.0); CHLORIDE - SERUM 105 mmol/L (98-107); CREATININE - SERUM 0.6 mg/dL (0.6-1.3); GLUCOSE 96 mg/dL (74-106); POTASSIUM - SERUM 3.3 mmol/L (3.5-5.1); PROTEIN - SERUM 6.2 g/dL (6.4-8.2); SODIUM 140 mmol/L (136-145); eGFR NON AFRICAN AMERICAN > 90 mL/min (90-120)
[2020-10-13 06:48] LABS: UREA NITROGEN 8 mg/dL (7-18)
--- NOTE | 2020-10-13 07:29 | NUR ---
PT SITTING UP IN BED WATCHING TV. O2 @ 4L NC IN PLACE. RIGHT CVL INTACT WITH TPN @ 80, NS @ 30 INFUSING VIA PUMP. SITE WITHOUT REDNESS OR EDEMA. COLOSTOMY NOTED TO LEFT LOWER QUAD. F/C PATENT TO GRAVITY. DENIES FURTHER NEEDS AT THIS TIME. GUARD AT BEDSIDE. ENCOURAGED TO CALL WITH NEEDS.
[2020-10-13 08:41] LABS: PHOSPHOROUS 4.6 mg/dL (2.5-4.9)
[2020-10-13 09:19] VITALS: BP 97/64
--- NOTE | 2020-10-13 10:30 | NUR ---
Nutrition follow-up: Chart and labs reviewed Diet order: Regular as tolerated; Ensure and fortified foods with meals PO intake continues to be poor labs reviewed; K low Recommend K jaron Will continue current TPN today and assess again 10/14/20
--- NOTE | 2020-10-13 11:45 | NUR ---
RECEIVED BEDSIDE REPORT. PT LAYING IN BED A&O X4. CVL TO RIGHT SUBCLAV, PATENT AND INFUSING. O2 SAT 96% ON 4L VIA HFNC. DRSG TO BUTTOCKS C/D/I. COLOSTOMY TO LLQ. MCCONNELL IN PLACE, DRAINING TO GRAVITY, STATLOCK IN PLACE. BED LOW, ALARM ON, CL IN REACH.
[2020-10-13 13:50] VITALS: BP 102/65
[2020-10-13 17:39] VITALS: BP 103/65
[2020-10-13 20:00] VITALS: BP 106/62
--- NOTE | 2020-10-13 22:11 | NUR ---
REPORT RECEIVED, WILL CONT POC. PT UP IN BED WITH CO GUARD AT BEDSIDE, A&O. NO S/S OF DISTRESS OBSERVED. RR EVEN AND UNLABORED ON 4LHF. BED LOCKED AND LOWERED, CL IN REACH. ASSESSMENT COMPLETE.
[2020-10-14 04:00] VITALS: BP 95/55
[2020-10-14 07:02] LABS: BASOPHILS 0.3 % (0-2); EOSINOPHILS 1.6 % (0-7); IMMATURE GRANULOCYTES 0.9 % (0-5); LYMPHOCYTE ABS# 1.14 10x3/uL (1.32-3.57); LYMPHOCYTES 14.8 % (15-50); MCH 27.6 pg (26.0-34.0); MCHC 30.9 g/dL (31.0-37.0); MCV 89.5 fL (80.0-100.0); MEAN PLATELET VOLUME 9.2 fL (7.4-10.4); MONOCYTES 11.4 % (2-11); NEUTROPHIL ABS# 5.48 10x3/uL (1.78-5.38); PLATELET COUNT 219 10x3/uL (130-400); RDW 16.9 % (11.5-14.5); WBC 7.7 10x3/uL (4.8-10.8)
[2020-10-14 07:11] LABS: ALBUMIN 2.2 g/dL (3.4-5.0); ALKALINE PHOSPHATASE 123 U/L (30-120); ALT (SGPT) 55 U/L (10-68); BILIRUBIN - TOTAL 0.38 mg/dL (0.2-1.3); CALC OSMOLALITY 275 mosm/kg (275-300); CALCIUM 8.5 mg/dL (8.5-10.1); CARBON DIOXIDE 25.7 mmol/L (21.0-32.0); CHLORIDE - SERUM 106 mmol/L (98-107); CREATININE - SERUM 0.6 mg/dL (0.6-1.3); GLUCOSE 102 mg/dL (74-106); POTASSIUM - SERUM 3.3 mmol/L (3.5-5.1); PROTEIN - SERUM 6.2 g/dL (6.4-8.2); SODIUM 139 mmol/L (136-145); UREA NITROGEN 8 mg/dL (7-18); eGFR NON AFRICAN AMERICAN > 90 mL/min (90-120)
[2020-10-14 07:14] LABS: HEMATOCRIT 29.8 % (42.0-54.0); HEMOGLOBIN 9.2 g/dL (13.5-17.5); RBC 3.33 10x6/uL (4.20-6.10)
--- NOTE | 2020-10-14 08:00 | NUR ---
RESTING IN BED, ISOLATION, GUARD AT BEDSIDE, BIPAP IN PLACE THIS AM, CONT TO TURN PT, DRESSING CHANGE THIS SHIFT
[2020-10-14 09:08] VITALS: BP 100/46
--- NOTE | 2020-10-14 13:35 | MORECARE ---
CASE MANAGEMENT DISCHARGE SUMMARY PATIENT: JULIANN ANNE UNIT: [id number] ADM DATE: 08/17/20 AGE: 39 : 78 SEX: M ROOM/BED: D.2240 AUTHOR: JOSE RAFAEL,DOC PHYSICIAN: REFERRING PHYSICIAN: WHIT ALCANTARA MD DATE OF SERVICE: 10/14/20 Case Management Discharge Planning Summary COMMENTS ENTERED DATE: 10/14/20 13:22 CT COMMENT TYPE: Discharge Planning REVIEWER: Sena Heredia SPOKE WITH MADDI AT THE [facility]IDENT[facility] AND FAXED HER UPDATES. ANTICIPATE PATIENT TO BE DC'D BACK TO THERE TODAY. AFTER PHYSICIAN ACCEPTANCE RN CAN CALL REPORT TO [phone] TO FOLLOW AND ASSIST NEEDED. ENTERED DATE: 09/29/20 16:32 CT COMMENT TYPE: Discharge Planning REVIEWER: Sena Heredia PATIENT FROM [facility] AND WILL TRANSPORT BACK TO THERE WITH [facility] WHEN MEDICALLY STABLE. PATIENT TO START CHEMO NEXT MONDAY. DCP REVIEW SUMMARY ANTICIPATED D/C DATE: EXPECTED LOS : CASE STATUS: DCP Initiated INITIAL REVIEW: 09/29/2020 INITIAL REVIEWER: Sena Heredia FINAL DISCHARGE DISPOSITION: : FINAL REVIEWER: FINAL REVIEW DATE: DCP Focus Questions & Answers QUESTION: ANSWER : PATIENT: JULIANN ANNE ENCOUNTER: [id number] MEDICAL RECORD#: [id number] ADMISSION DATE: 08/17/2020 DISCHARGE DATE: ATTENDING MD: WHIT PITT : AGE: 39 MARITAL STATUS: D DC PLAN ID: [id number] FACILITY: [facility] PRINTED ON: 10/14/20 13:35 CT All edits/amendments must be made on the electronic document DICTATION DATE: 10/14/20 133 SQUARING SHEAR OPERATOR: ОЛЬГА 10/14/20 1335 RPT#: [id number] DC DATE: STATUS: ADM IN [facility] [address] [place] [address] END OF REPORT
[2020-10-14] MEDS ORDERED: ELIQUIS5 MG PO (13:36)
[2020-10-14] MEDS ORDERED: ZYVOX PREMIX600 MG IV (13:36)
[2020-10-14] MEDS ORDERED: BETAPACE 80 MG80 MG PO (13:37)
[2020-10-14] MEDS ORDERED: CALMOSEPTINE OI71 GM TOPICAL (13:38)
[2020-10-14] MEDS ORDERED: ZYLOPRIM100 MG PO (13:39)
--- NOTE | 2020-10-14 14:45 | NUR ---
REVIEWED DC WITH PT, VOICED NO CONCERNS
[2020-10-14 14:48] VITALS: BP 118/65
--- NOTE | 2020-10-14 16:06 | NUR ---
REPORT CALLED TO DEWAYNE AT THE [facility], [place] LINE DRESSING CHANGED TODAY AND WET TO DRY CHANGED ALSO, AWAITING RIDE
--- NOTE | 2020-10-14 19:00 | NUR ---
spoke with ambulance service who will be here around 8 to take pt back to [facility]
--- NOTE | 2020-10-14 22:01 | NUR ---
PT ESCORTED BY [facility] AND DOC BY [facility]CHER TO AMBULANCE.
--- NOTE | 2020-10-14 22:06 | MORECARE ---
CASE MANAGEMENT DISCHARGE SUMMARY PATIENT: JULIANN ANNE UNIT: [id number] ADM DATE: 08/17/20 AGE: 39 : 78 SEX: M ROOM/BED: D.2240 AUTHOR: JOSE RAFAEL,DOC PHYSICIAN: REFERRING PHYSICIAN: WHIT ALCANTARA MD DATE OF SERVICE: 10/14/20 Case Management Discharge Planning Summary COMMENTS ENTERED DATE: 10/14/20 13:22 CT COMMENT TYPE: Discharge Planning REVIEWER: Senaness Heredia SPOKE WITH MADDI AT THE [facility] AND FAXED HER UPDATES. ANTICIPATE PATIENT TO BE DC'D BACK TO THERE TODAY. AFTER PHYSICIAN ACCEPTANCE RN CAN CALL [facility]PORT TO [phone] TO FOLLOW AND ASSIST NEEDED. ENTERED DATE: 09/29/20 16:32 CT COMMENT TYPE: Discharge Planning REVIEWER: Sena Heredia PATIENT FROM [facility] AND WILL TRANSPORT BACK TO THERE WITH [facility] WHEN MEDICALLY STABLE. PATIENT TO START CHEMO NEXT MONDAY. DCP REVIEW SUMMARY ANTICIPATED D/C DATE: EXPECTED LOS : CASE STATUS: DCP Initiated INITIAL REVIEW: 09/29/2020 INITIAL REVIEWER: Sena Heredia FINAL DISCHARGE DISPOSITION: : FINAL REVIEWER: FINAL REVIEW DATE: DCP Focus Questions & Answers QUESTION: ANSWER : PATIENT: JULIANN ANNE ENCOUNTER: [id number] MEDICAL RECORD#: [id number] ADMISSION DATE: 08/17/2020 DISCHARGE DATE: 10/14/2020 ATTENDING MD: WHIT PITT : AGE: 39 MARITAL STATUS: D DC PLAN ID: [id number] FACILITY: [facility] PRINTED ON: 10/14/20 22:06 CT All edits/amendments must be made on the electronic document DICTATION DATE: 10/14/202205 GRINDER OPERATOR TOOL: ОЛЬГА 10/14/202205 RPT#: [id number] DC DATE:10/14/20 STATUS: DIS IN [facility] [address] [place] [address] END OF REPORT
== END 2020-10-14 22:03 | DRG 163 ==
LOC: D.ER 12:49 → D.MS 18:24 → D.ICU 18:24 → D.CVICU 18:24 → D.EDHOLD 18:24 → D.MS 22:53 → D.ICU 08-27 12:15 → D.CVICU 09-14 12:00 → D.MS 09-24 16:05 → D.ICU 10-01 17:33 → D.MS 10-05 17:39
PROVIDERS: Emergency Medicine; Family Medicine; Family Medicine Adult Medicine; Internal Medicine; Internal Medicine Hematology & Oncology; Internal Medicine Nephrology; Internal Medicine Pulmonary Disease; Specialist; Surgery; Thoracic Surgery (Cardiothoracic Vascular Surgery); ADMIT Emergency Medicine; ATTEND Emergency Medicine
PROC: 0BBL3ZX Excision of Left Lung, Percutaneous Approach, Diagnostic (ICD-10-PCS; principal; 2020-08-18 10:00)
PROC: 0JH63WZ Insertion of Totally Implantable Vascular Access Device into Chest Subcutaneous Tissue and Fascia, Percutaneous Approach (ICD-10-PCS; 2020-08-24)
PROC: 05H633Z Insertion of Infusion Device into Left Subclavian Vein, Percutaneous Approach (ICD-10-PCS; 2020-08-24)
PROC: 0BBF3ZX Excision of Right Lower Lung Lobe, Percutaneous Approach, Diagnostic (ICD-10-PCS; 2020-08-27)
PROC: 0W9B3ZZ Drainage of Left Pleural Cavity, Percutaneous Approach (ICD-10-PCS; 2020-09-08)
PROC: 0W9B3ZZ Drainage of Left Pleural Cavity, Percutaneous Approach (ICD-10-PCS; 2020-09-15)
PROC: 0W9D0ZZ Drainage of Pericardial Cavity, Open Approach (ICD-10-PCS; 2020-09-18)
PROC: 0B9J8ZX Drainage of Left Lower Lung Lobe, Via Natural or Artificial Opening Endoscopic, Diagnostic (ICD-10-PCS; 2020-09-19)
PROC: 05H533Z Insertion of Infusion Device into Right Subclavian Vein, Percutaneous Approach (ICD-10-PCS; 2020-09-22)
PROC: 0QBS0ZZ Excision of Coccyx, Open Approach (ICD-10-PCS; 2020-10-01)
DX: C34.92 Malignant neoplasm of unspecified part of left bronchus or lung (principal); J18.9 Pneumonia, unspecified organism; J96.01 Acute respiratory failure with hypoxia; J96.02 Acute respiratory failure with hypercapnia; L89.154 Pressure ulcer of sacral region, stage 4; J90 Pleural effusion, not elsewhere classified; I31.3 Pericardial effusion (noninflammatory); E87.1 Hypo-osmolality and hyponatremia; J44.1 Chronic obstructive pulmonary disease with (acute) exacerbation; R91.8 Other nonspecific abnormal finding of lung field; D50.9 Iron deficiency anemia, unspecified; R63.4 Abnormal weight loss; Z68.32 Body mass index [BMI] 32.0-32.9, adult; G47.33 Obstructive sleep apnea (adult) (pediatric); E66.9 Obesity, unspecified; F99 Mental disorder, not otherwise specified; R53.81 Other malaise

== ENCOUNTER 2020-11-25 07:05 | Day surgery (SDC) | payer OTHER ==
[~2020-11-25] VITALS: Ht 167.6 cm; Wt 73.5 kg
--- NOTE | ~2020-11-25 | OP ---
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 PROCEDURES: 1. Placement of right infraclavicular PowerPort under fluoroscopic guidance. 2. Immediate surgeon interpretation of fluoroscopic images. SURGEON: Nereida Dugan MD. RACE RELATIONS PROFESSOR: None. BLOOD LOSS: Minimal. ANESTHESIA: General. No radiologist was present for this procedure. Static fluoroscopic images were obtained and sent to the radiologist for interpretation. OPERATIVE COURSE: The patient was conveyed to the operating room electively on 11/25/2020. General anesthesia was induced by the anesthesia staff. The left chest and left neck were sterilely prepped and draped. Under ultrasonographic guidance, I identified a left common carotid artery, but only a very small noncompressible left internal jugular vein. We tried to access the vein several times and was able to do so; however, I could not get a guidewire to thread. I then attempted supraclavicular subclavian and infraclavicular subclavian approaches. Neither one was successful in advancing a wire. Pressure was held at the puncture sites. I then went around to the right side. The right neck and right chest were sterilely prepped and draped. Under ultrasonographic guidance, I was able to percutaneously access the right internal jugular vein in an antegrade fashion. A guidewire passed easily. A small skin vicki was accomplished. A counterincision was accomplished in the right anterior superior infraclavicular chest. I then tunneled a catheter from the chest incision to the neck incision. Over the guidewire, a dilator sheath was advanced. The dilator and wire were removed. I then advanced the catheter down the Peel-Away sheath, which was then removed. I was then able to pull back on the catheter so that its tip was at the cavoatrial junction. I then shortened the catheter. It was firmly pushed into the port. The locking device was firmly engaged. The port was placed in the subcutaneous pocket and utilizing 3-point fixation with 2-0 Prolenes, I sutured the port to the underlying pectoralis fascia to keep it from flipping. At the chest incision, the subdermis was approximated with interrupted 3-0 Vicryl. The skin was approximated with a running intracuticular 4-0 Vicryl. At the neck site, the skin was closed with multiple interrupted intracuticular 3-0 Vicryls. I then took out the central line that was on the right side. A pursestring suture was placed around the central line insertion site. I removed OPERATIVE REPORT [id number] JULIANN ANNE the central line and then tied down on the suture. Hemostasis was immediate. I then accessed the port percutaneously. It accessed easily. It flushed easily and aspirated dark, nonpulsatile blood. The patient was then extubated and conveyed to the postanesthesia care unit. He was then sent out to the outpatient department. The port can be used immediately. I would not attempt central venous access from the left side again. TRANSINT:[id number] Voice Confirmation ID: [id number] DOCUMENT ID: [id number] NEREIDA DUGAN MD CC: CHRIS HUA MD and LAURA STAFFORD [id number] DICTATION DATE: 11/25/20 1656 NETWORKING SPECIALIST: 11/25/20 [address] [facility] 11/25/20 [facility] [address] [place] [address]
[~2020-11-25 07:05] MED LIST: ALDACTONE25 MG PO; BETAPACE 80 MG80 MG PO; CALMOSEPTINE OI71 GM TOPICAL; CELEXA40 MG PO; DULCOLAX STOOL100 MG PO; ELIQUIS5 MG PO; FIBER-LAX625 MG PO; FLUTICASONE PRO16 GM NASAL; OMEPRAZOLE40 MG PO; ZYLOPRIM100 MG PO; ZYRTEC10 MG PO; ZYVOX PREMIX600 MG IV
[2020-11-25 10:10] LABS: BASOPHILS 0.7 % (0-2); EOSINOPHILS 0.5 % (0-7); HEMATOCRIT 31.8 % (42.0-54.0); HEMOGLOBIN 10.1 g/dL (13.5-17.5); LYMPHOCYTES 16.7 % (15-50); MCH 27.1 pg (26.0-34.0); MCHC 31.7 g/dL (31.0-37.0); MCV 85.4 fL (80.0-100.0); MEAN PLATELET VOLUME 6.7 fL (7.4-10.4); MONOCYTES 10.2 % (2-11); NEUTROPHILS 71.9 % (40-80); RBC 3.72 10x6/uL (4.20-6.10); RDW 16.7 % (11.5-14.5); WBC 11.5 10x3/uL (4.8-10.8)
[2020-11-25 10:17] LABS: CALC OSMOLALITY 273 mosm/kg (275-300); CALCIUM 9.5 mg/dL (8.5-10.1); CARBON DIOXIDE 29.6 mmol/L (21.0-32.0); CHLORIDE - SERUM 101 mmol/L (98-107); CREATININE - SERUM 0.8 mg/dL (0.6-1.3); GLUCOSE 109 mg/dL (74-106); POTASSIUM - SERUM 3.8 mmol/L (3.5-5.1); SODIUM 138 mmol/L (136-145); UREA NITROGEN 3 mg/dL (7-18); eGFR NON AFRICAN AMERICAN > 90 mL/min (90-120)
[2020-11-25 10:20] LABS: PLATELET COUNT 403 10x3/uL (130-400)
[2020-11-25 11:12] VITALS: BP 109/69; Ht 167.6 cm; Wt 73.5 kg
[2020-11-25] MEDS ORDERED: HYDROCODONE-AC1 EAC2 (11:35)
--- NOTE | 2020-11-25 11:39 | NUR ---
BUTTOCKS WOUND VAC IN PLACE AND DRAINING
--- NOTE | 2020-11-25 16:46 | NUR ---
WOUND VAC MALODOROUS WITH BROWN DISCHARGE. POWERPORT DE-ACCESSED. RX'D WITH [facility]. DISCHARGED WITH ADC GUARDS WITHOUT C/O
== END 2020-11-25 16:48 | disposition home or self-care (01) ==
LOC: D.OPS 07:05
PROVIDERS: Anesthesiology; ATTEND Surgery
DX: C62.90 Malignant neoplasm of unspecified testis, unspecified whether descended or undescended (principal)